=== PATIENT | female | born 1955 | race Caucasian/White ===

== ENCOUNTER 2021-12-05 11:32 | Inpatient (IN) ==
[2021-12-05] MEDS ORDERED: ONDANSETRON INJ 2 MG/ML 2 ML VIAL IV STA (12:02)
[2021-12-05] MEDS ORDERED: SODIUM CHLORIDE 0.9% 1000ML 2,000 ML IV ONE (12:02)
[2021-12-05] MEDS ORDERED: fentaNYL citrate 100 MCG/2 ML VIAL IV STA (12:02)
--- NOTE | 2021-12-05 12:06 | Emergency Department Note ---
Impression & Plan Septic shock, Acute kidney injury, Complicated UTI (urinary tract infection), Hydronephrosis with urinary obstruction due to ureteral calculus, Lactic acidosis ED Provider Note Name: NOREEN ESTRADA Age: 66 Sex: F Arrives Via: Walk-In Informant: Patient, Daughter ED Provider: Jerry Nguyen MD Chief Complaint: Left flank pain. Impression: As per impressions above Medical Decision Makin-year-old female with a history of diabetes, dyslipidemia, hypertension and previous TIA arrives for evaluation of left flank pain. Patient with known 6 mm ureteral stone on the left after CT at [facility] yesterday. Reports initially planned for transfer to [facility] but due to feeling better had been discharged. Patient with rapidly worsening left flank pain worsening nausea weakness fatigue tachycardia and chills. On arrival patient is pale diaphoretic hypotensive tachycardic and complaining of diffuse abdominal pain rating up into her substernal chest. EKG is without ischemia. Patient was immediately treated as septic shock with cultures, lactate and imaging ordered. 2 L NSS bolus started while awaiting labs. With elevated lactate empiric Cefepime given and a 3rd liter normal saline ordered. The rest of her labs are consistent with severe sepsis including an elevated white blood cell count elevated procalcitonin mildly elevated troponin amongst other abnormal lab findings. She is in acute renal failure though there is no evidence of hyperkalemia. CT reveals distal left ureteral stone with moderate hydro and stranding of the bladder and ureter. I discussed the case with critical care medicine Dr. Huerta to make him aware and at same time had urology paged. Urology to evaluate patient with plan to go emergently to the OR. Repeat lactic acid was obtained and shows vast improvement. Patient had continuous repeat evaluations throughout her stay. The hospitalist were made aware for post operative management as well. Patient did appear much improved following fluid boluses. Patient did have some low sternal epigastric chest pain on arrival. EKG does not show any ischemia. With improvement in her blood pressure her chest pain has resolved. I suspect this may have been hypotensive related. In the setting of acute septic shock secondary to an obstructing infected ureteral stone I do not feel that starting her on heparin would be necessary at this time as I suspect that troponin elevation is secondary to her acute renal failure and shock rather than ACS at this time. Sepsis Fluids: Patient received a total of 3 L normal saline bolus during the initial management in the ER. This included the 30/kg plus some based repeat evaluations. Repeat Lactate: Lactic acid elevated initially in the setting of septic shock. Repeat lactic acid is within normal range. Repeat volume status & tissue perfusion examination for sepsis at 3:15pm on 12/05/21: Status post 3 L NSS bolus. Lactate improved. Mental status improved and patient breathing comfortably. BP better at 123/50. HR 115. Clear lungs, HR a bit tachy. Cap refill within 2 seconds with good pulses. Warm pink skin without mottling nor diaphoresis. Patient does not require pressors at this time as blood pressure is improved significantly she looks much better hydrated and her volume status is improved. Prior Medical Record and Triage/Nursing Notes reviewed by Me Additional history obtained from chart, daughter and outside records Differentials:Renal colic, UTI, appendicitis, diverticulitis, mesenteric ischemia, aortic pathology, infections, inflammatory bowel disease, PUD, biliary pathology, as well as other pathologies. Vital Signs: reviewed and remarkable for hypotension, tachycardia Interventions: Normal saline bolus 3 L IV, cefepime 2 g IV, Labs:Reviewed and remarkable for elevated white blood cell count, elevated procalcitonin, elevated creatinine, elevated lactic acidosis Imaging:CT of the abdomen pelvis without contrast as per radiologist distal left ureteral 6 mm stone with hydro. 1 view chest x-ray no acute findings as per radiology KUB no acute findings questionable left renal stones as per radiology EKG:Per My Interpretation: Indication sepsis: Sinus tach 116 bpm, qtc 455. No Ectopy. No Ischemia. Compared to EKG 07/09/18 HR has increased significantly Cardiac/Tele Monitoring: Cardiac Monitoring: An Order was placed for continuous cardiac monitoring. The monitor shows a rate of 115 with a sinus tach rhythm. Consults:Dr Alexandra [facility], Dr Allan [facility], Dr Weeks Hospitalist Plan: Disposition:Hospitalization via OR Condition: Critical History of Present Illness:66-year-old female arrives for evaluation of illness. Patient with several days of left flank pain seen in [place] ER diagnosed with a left distal ureteral stone 6 mm last evening. She notes since getting home worsening nausea, vomiting, chills, increasing abdominal pain. Pain is now diffusely throughout her entire abdomen. She is also noting some low chest/epigastric discomfort. Pain is much worse with any movement. She ge ts severely lightheaded with standing better with laying flat. No medications prior to arrival. She did receive morphine last evening which she states did help with her pain. She has a history of ureteral stones requiring stents multiple years ago. Denies any falls, trauma, injuries. ROS: See above HPI for pertinent positives & negatives. A total of 10 systems reviewed and were otherwise negative. Past Medical History:Diabetes, hypertension, dyslipidemia Past Surgical History:Ureteral stones, see below Family History:See Below Social History:See Below Home Medications:See Below Allergies:sulfa, lisinopril Vitals:Blood Pressure: 87/57, Pulse 123, RR 16, T 37.1C, O2 90% on RA Physical Exam: GENERAL: Patient is unwell/ill appearing and in moderate distress. EYES: No scleral icterus, unremarkable pupils. ENT: Mucous membranes moist, no nasal congestion. NECK: No masses appreciated, nomeningismus, trachea is midline. RESPIRATORY: Moderate dyspnea. Clear to auscultation and equal bilaterally. No wheeze, no rhonchi. CARDIOVASCULAR: Tachy.No murmurs, rubs, gallops appreciated. GASTROINTESTINAL: Diffuse TTP, no guarding, + bowel sounds, no masses appreciated. BACK: No midline tenderness, no CVA tenderness EXTREMITIES: Normal motion all extremities, no cyanosis, no edema. NEUROLOGIC: Alert and oriented, no acute motor or sensory deficits, no focal weakness, cranial nerves grossly intact. SKIN: No rash, no jaundice, no diaphoresis. PSYCH: Appropriate GCS: 15 ED Course: Times/Reassessments: Many repeat evaluations of patient throughout the stay with extensive management and coordination of care. Critical Care: I have personally spent 75 minutes of critical care time in the direct management of this patient. Acute septic shock secondary to obstructing-infected left ureteral stone. This was a life/limb threatening event. This 75 minutes is in excess of all separately billable procedures. Jerry Nguyen MD Past Med/Surg History Medical History Diabetes mellitus, type 2 NIDDM Dyslipidemia GERD (gastroesophageal reflux disease) OCCASIONAL. HTN (hypertension) Hypertension Recurrent kidney stones Transient ischemic attack (TIA) ~10-15 YEARS AGO. 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 Hx of prior ablation treatment uterine ablation per pt Family History Grandmother (Paternal) Family history of diabetes mellitus Father Family history of diabetes mellitus Social History Smoking Status: Never smoker Second Hand Exposure: Yes ( A CHILD); Hx Alcohol Use: No Hx Substance Use: No Preferred Language: Zimbabwean Communication Ability: Effective Director Education Required: No Beliefs That Will Affect Care: None Current Living Situation: Significant Other Other Information That Helps Us Care for You: No Feels Safe at Home: Yes Safety Concerns: Feels Safe At This Time Assistive Devices: Glasses Allergies Allergies Allergy/AdvReac Type Severity Reaction Status Date / Time Sulfa (Sulfonamide Allergy Unknown Unknown Verified 08/25/19 17:30 Antibiotics) lisinopril AdvReac Unknown Cough Verified 08/25/19 17:30 Home Meds Home Medications Medication Instructions Recorded Confirmed aspirin 81 mg tablet,delayed 81 mg PO QAM 07/07/18 12/05/21 release ezetimibe 10 mg tablet 10 mg PO QAM 07/07/18 12/05/21 empagliflozin 25 mg tablet 25 mg PO QAM 08/25/19 12/05/21 (Jardiance) atorvastatin 10 mg tablet 10 mg PO DAILY 12/05/21 12/05/21 glimepiride 4 mg tablet 4 mg PO DAILY 12/05/21 12/05/21 hydrochlorothiazide 25 mg tablet 25 mg PO DAILY 12/05/21 12/05/21 metformin 750 mg tablet,extended 1,500 mg PO DAILY 12/05/21 12/05/21 release 24 hr polyethylene glycol 3350 17 gram 17 g PO DAILY PRN Constipation 12/05/21 12/05/21 oral powder packet (Miralax) Results & Data (ED) Vital Signs Vital Signs - 24 hr 12/05/21 11:38 12/05/21 12:56 12/05/21 12:32 Temperature 37.1 C Temperature Source Oral Pulse Rate 123 H Pulse Rate [Apical] Pulse Rate from SpO2 Sensor Pulse Rhythm [Apical] Pulse Strength [Apical] Respiratory Rate 16 Respiratory Effort / Characteristics Non-Labored Spontaneous Respiratory Depth Normal Respiratory Pattern Blood Pressure 87/57 L Blood Pressure [Left Arm] Blood Pressure Mean 67 Blood Pressure Mean [Left Arm] Blood Pressure Position Sitting Blood Pressure Position [Left Arm] Pulse Oximetry 90 96 86 L Oxygen Delivery Method Room Air Nasal Cannula Room Air Oxygen Flow Rate 2 0 Sepsis Recent Fever Within 48 Hours No Sepsis New/Unexplained Change in Mental Status N/A Sepsis Action Taken by Nursing No Action Required Oxygen Flow Rate - Titration 2 Pulse Oximetry Post Tiitration 96 12/05/21 12:33 12/05/21 12:49 12/05/21 12:49 Temperature Temperature Source Pulse Rate 116 H 114 H Pulse Rate [Apical] Pulse Rate from SpO2 Sensor 114 H Pulse Rhythm [Apical] Pulse Strength [Apical] Respiratory Rate 22 18 Respiratory Effort / Characteristics Respiratory Depth Respiratory Pattern Blood Pressure 102/63 Blood Pressure [Left Arm] Blood Pressure Mean 76 Blood Pressure Mean [Left Arm] Blood Pressure Position Blood Pressure Position [Left Arm] Pulse Oximetry 96 Oxygen Delivery Method Oxygen Flow Rate Sepsis Recent Fever Within 48 Hours Sepsis New/Unexplained Change in Mental Status Sepsis Action Taken by Nursing Oxygen Flow Rate - Titration Pulse Oximetry Post Tiitration 12/05/21 13:00 12/05/21 13:07 12/05/21 13:07 Temperature Temperature Source Pulse Rate 118 H 117 H Pulse Rate [Apical] Pulse Rate from SpO2 Sensor 118 H Pulse Rhythm [Apical] Pulse Strength [Apical] Respiratory Rate 22 22 Respiratory Effort / Characteristics Respiratory Depth Respiratory Pattern Blood Pressure 111/75 Blood Pressure [Left Arm] Blood Pressure Mean 87 Blood Pressure Mean [Left Arm] Blood Pressure Position Blood Pressure Position [Left Arm] Pulse Oximetry 95 Oxygen Delivery Method Oxygen Flow Rate Sepsis Recent Fever Within 48 Hours Sepsis New/Unexplained Change in Mental Status Sepsis Action Taken by Nursing Oxygen Flow Rate - Titration Pulse Oximetry Post Tiitration 12/05/21 13:30 12/05/21 13:30 12/05/21 14:00 Temperature Temperature Source Pulse Rate 120 H Pulse Rate [Apical] Pulse Rate from SpO2 Sensor 121 H Pulse Rhythm [Apical] Pulse Strength [Apical] Respiratory Rate 22 Respiratory Effort / Characteristics Respiratory Depth Respiratory Pattern Blood Pressure 125/80 141/77 H Blood Pressure [Left Arm] Blood Pressure Mean 95 98 Blood Pressure Mean [Left Arm] Blood Pressure Position Blood Pressure Position [Left Arm] Pulse Oximetry 93 Oxygen Delivery Method Oxygen Flow Rate Sepsis Recent Fever Within 48 Hours Sepsis New/Unexplained Change in Mental Status Sepsis Action Taken by Nursing Oxygen Flow Rate - Titration Pulse Oximetry Post Tiitration 12/05/21 14:00 12/05/21 14:02 12/05/21 14:17 Temperature Temperature Source Pulse Rate 125 H 123 H Pulse Rate [Apical] Pulse Rate from SpO2 Sensor 124 H Pulse Rhythm [Apical] Pulse Strength [Apical] Respiratory Rate 21 19 Respiratory Effort / Characteristics Respiratory Depth Respiratory Pattern Blood Pressure 105/53 L Blood Pressure [Left Arm] Blood Pressure Mean 70 Blood Pressure Mean [Left Arm] Blood Pressure Position Blood Pressure Position [Left Arm] Pulse Oximetry 94 Oxygen Delivery Method Nasal Cannula Oxygen Flow Rate 2 Sepsis Recent Fever Within 48 Hours Sepsis New/Unexplained Change in Mental Status Sepsis Action Taken by Nursing Oxygen Flow Rate - Titration Pulse Oximetry Post Tiitration 12/05/21 14:30 12/05/21 14:30 12/05/21 15:15 Temperature 37.0 C Temperature Source Oral Pulse Rate 123 H Pulse Rate [Apical] 129 H Pulse Rate from SpO2 Sensor 123 H Pulse Rhythm [Apical] Regular Pulse Strength [Apical] Normal Respiratory Rate 14 20 Respiratory Effort / Characteristics Non-Labored Spontaneous Respiratory Depth Normal Respiratory Pattern Regular Blood Pressure 106/53 L Blood Pressure [Left Arm] 115/79 Blood Pressure Mean 70 Blood Pressure Mean [Left Arm] 91 Blood Pressure Position Blood Pressure Position [Left Arm] Semi-fowlers Pulse Oximetry 91 95 Oxygen Delivery Method Room Air Oxygen Flow Rate Sepsis Recent Fever Within 48 Hours Sepsis New/Unexplained Change in Mental Status Sepsis Action Taken by Nursing Oxygen Flow Rate - Titration Pulse Oximetry Post Tiitration Laboratory Data Result diagrams: 12/05/21 12:25 12/05/21 12:25 Lab Results 12/05/21 12/05/21 12/05/21 Range/Units 11:49 12:25 12:25 WBC 21.82 H (4.8-10.8) K/ul RBC 5.05 (3.93-5.22) M/uL Hgb 14.5 (12.0-16.0) g/dl Hct 42.1 (34.1-44.9) % MCV 83.4 (80.0-100.0) fL MCH 28.7 (25.0-34.0) pg MCHC 34.4 (32.0-36.0) g/dL RDW Std Deviation 40.7 (36.4-46.3) fL RDW Coeff of Niyah 13.4 (11.5-14.5) % Plt Count 48 L (130-400) K/uL Immature Gran % (Auto) 6.4 % Neut % (Auto) 85.0 % Lymph % (Auto) 4.6 % [place] % (Auto) 3.4 % Eos % (Auto) 0.0 % Baso % (Auto) 0.6 % Neut # (Auto) 18.54 H (1.4-6.5) K/uL Lymph # (Auto) 1.00 L (1.2-3.4) K/uL [place] # (Auto) 0.75 (0.24-0.82) K/uL Eos # (Auto) 0.00 (0-0.50) K/uL Baso # (Auto) 0.13 (0-0.2) K/uL Immature Gran # (Auto) 1.40 H (0.00-0.02) K/uL Sodium 135 L (136-145) mmol/L Potassium 3.4 L (3.5-5.1) mmol/L Chloride 94 L (98-107) mmol/L Carbon Dioxide 22 (21-32) mmol/L Anion Gap 19 H (3-11) BUN 56 H (6-23) mg/dl Creatinine 4.24 H (0.6-1.2) mg/dl Est Cr Clr Drug Dosing Not Reportable Est GFR ( Amer) 12.0 ml/min Est GFR (Non-Af Amer) 10.4 ml/min BUN/Creatinine Ratio 13.2 (10-20) Glucose 258 H (70-99(Fasting)) mg/dl POC Glucose 237 H (70-99) mg/dl Lactate (0.4-2.0) mmol/L Calcium 8.4 L (8.5-10.1) mg/dl Total Bilirubin 1.7 H (0.2-1.0) mg/dl AST 146 H (13-39) U/L ALT 164 H (7-52) U/L Alkaline Phosphatase 96 (34-104) U/L Troponin I High Sens 29.1 H (0-14) pg/ml Total Protein 7.3 (6.0-8.3) gm/dl Albumin 3.5 (3.4-5.0) gm/dl Globulin 3.8 (2.5-4.0) gm/dl Albumin/Globulin Ratio 0.9 (0.9-2) Lipase 57 (11-82) U/L Procalcitonin Urine Color Urine Appearance (Clear) Urine pH (4.5-7.5) Ur Specific [place] (1.000-1.030) Urine Protein (Negative) Urine Glucose (UA) (Negative) Urine Ketones (Negative) Urine Blood (Negative) Urine Nitrite (Negative) Urine Bilirubin (Negative) Urine Urobilinogen (Negative) Ur Leukocyte Esterase (Negative) Urine WBC (Auto) (0-5) /hpf Urine RBC (Auto) (0-4) /hpf U Hyaline Cast (Auto) (0-5) /lpf U Epithel Cells (Auto) (0-5) /lpf Urine Bacteria (Auto) (Negative) Granular Casts (0) /lpf Urine Yeast SARS-CoV-2, RNA, NAAT (NEGATIVE) 12/05/21 12/05/21 12/05/21 Range/Units 12:25 12:25 12:57 WBC (4.8-10.8) K/ul RBC (3.93-5.22) M/uL Hgb (12.0-16.0) g/dl Hct (34.1-44.9) % MCV (80.0-100.0) fL MCH (25.0-34.0) pg MCHC (32.0-36.0) g/dL RDW Std Deviation (36.4-46.3) fL RDW Coeff of Niyah (11.5-14.5) % Plt Count (130-400) K/uL Immature Gran % (Auto) % Neut % (Auto) % Lymph % (Auto) % [place] % (Auto) % Eos % (Auto) % Baso % (Auto) % Neut # (Auto) (1.4-6.5) K/uL Lymph # (Auto) (1.2-3.4) K/uL [place] # (Auto) (0.24-0.82) K/uL Eos # (Auto) (0-0.50) K/uL Baso # (Auto) (0-0.2) K/uL Immature Gran # (Auto) (0.00-0.02) K/uL Sodium (136-145) mmol/L Potassium (3.5-5.1) mmol/L Chloride (98-107) mmol/L Carbon Dioxide (21-32) mmol/L Anion Gap (3-11) BUN (6-23) mg/dl Creatinine (0.6-1.2) mg/dl Est Cr Clr Drug Dosing Est GFR ( Amer) ml/min Est GFR (Non-Af Amer) ml/min BUN/Creatinine Ratio (10-20) Glucose (70-99(Fasting)) mg/dl POC Glucose (70-99) mg/dl Lactate 6.3 H* (0.4-2.0) mmol/L Calcium (8.5-10.1) mg/dl Total Bilirubin (0.2-1.0) mg/dl AST (13-39) U/L ALT (7-52) U/L Alkaline Phosphatase (34-104) U/L Troponin I High Sens (0-14) pg/ml Total Protein (6.0-8.3) gm/dl Albumin (3.4-5.0) gm/dl Globulin (2.5-4.0) gm/dl Albumin/Globulin Ratio (0.9-2) Lipase (11-82) U/L Procalcitonin Cancelled > 200.00 H Urine Color Urine Appearance (Clear) Urine pH (4.5-7.5) Ur Specific [place] (1.000-1.030) Urine Protein (Negative) Urine Glucose (UA) (Negative) Urine Ketones (Negative) Urine Blood (Negative) Urine Nitrite (Negative) Urine Bilirubin (Negative) Urine Urobilinogen (Negative) Ur Leukocyte Esterase (Negative) Urine WBC (Auto) (0-5) /hpf Urine RBC (Auto) (0-4) /hpf U Hyaline Cast (Auto) (0-5) /lpf U Epithel Cells (Auto) (0-5) /lpf Urine Bacteria (Auto) (Negative) Granular Casts (0) /lpf Urine Yeast SARS-CoV-2, RNA, NAAT (NEGATIVE) 12/05/21 12/05/21 12/05/21 Range/Units 13:53 14:30 14:50 WBC (4.8-10.8) K/ul RBC (3.93-5.22) M/uL Hgb (12.0-16.0) g/dl Hct (34.1-44.9) % MCV (80.0-100.0) fL MCH (25.0-34.0) pg MCHC (32.0-36.0) g/dL RDW Std Deviation (36.4-46.3) fL RDW Coeff of Niyah (11.5-14.5) % Plt Count (130-400) K/uL Immature Gran % (Auto) % Neut % (Auto) % Lymph % (Auto) % [place] % (Auto) % Eos % (Auto) % Baso % (Auto) % Neut # (Auto) (1.4-6.5) K/uL Lymph # (Auto) (1.2-3.4) K/uL [place] # (Auto) (0.24-0.82) K/uL Eos # (Auto) (0-0.50) K/uL Baso # (Auto) (0-0.2) K/uL Immature Gran # (Auto) (0.00-0.02) K/uL Sodium (136-145) mmol/L Potassium (3.5-5.1) mmol/L Chloride (98-107) mmol/L Carbon Dioxide (21-32) mmol/L Anion Gap (3-11) BUN (6-23) mg/dl Creatinine (0.6-1.2) mg/dl Est Cr Clr Drug Dosing Est GFR ( Amer) ml/min Est GFR (Non-Af Amer) ml/min BUN/Creatinine Ratio (10-20) Glucose (70-99(Fasting)) mg/dl POC Glucose (70-99) mg/dl Lactate 1.7 (0.4-2.0) mmol/L Calcium (8.5-10.1) mg/dl Total Bilirubin (0.2-1.0) mg/dl AST (13-39) U/L ALT (7-52) U/L Alkaline Phosphatase (34-104) U/L Troponin I High Sens (0-14) pg/ml Total Protein (6.0-8.3) gm/dl Albumin (3.4-5.0) gm/dl Globulin (2.5-4.0) gm/dl Albumin/Globulin Ratio (0.9-2) Lipase (11-82) U/L Procalcitonin Urine Color Dark Yellow Urine Appearance Turbid A (Clear) Urine pH 5.0 (4.5-7.5) Ur Specific [place] 1.020 (1.000-1.030) Urine Protein 3+ H (Negative) Urine Glucose (UA) 3+ H (Negative) Urine Ketones Trace H (Negative) Urine Blood 3+ H (Negative) Urine Nitrite Positive A (Negative) Urine Bilirubin 1+ H (Negative) Urine Urobilinogen Negative (Negative) Ur Leukocyte Esterase 3+ H (Negative) Urine WBC (Auto) >30 H (0-5) /hpf Urine RBC (Auto) 10-30 H (0-4) /hpf U Hyaline Cast (Auto) 5-10 H (0-5) /lpf U Epithel Cells (Auto) >30 H (0-5) /lpf Urine Bacteria (Auto) 4+ H (Negative) Granular Casts 1-5 H (0) /lpf Urine Yeast Not Reportable SARS-CoV-2, RNA, NAAT NEGATIVE (NEGATIVE) Administered Medications Discontinued Medications Diatrizoate Meglumine (Diatrizoate Meglumine 30% 100ml Vial) 0 ml INSTIL ONCE O NE Stop: 12/05/21 16:21 Last Admin: 12/05/21 16:22 Dose: 6 ml Documented By: QUINN Fentanyl Citrate (Fentanyl Citrate 100 Mcg/2 Ml Vial) 50 mcg IV NOW STA Stop: 12/05/21 12:03 Last Admin: 12/05/21 12:41 Dose: 50 mcg Documented By: AM Sodium Chloride (Nss 1000ml) 2,000 mls @ 999 mls/hr IV .Q2H1M ONE Stop: 12/05/21 14:02 Last Infusion: 12/05/21 14:20 Dose: 0 mls/hr Documented By: Admin: 12/05/21 12:53 Dose: 999 mls/hr Documented By: AM Sodium Chloride (Nss 1000ml) 1,000 mls @ 999 mls/hr IV .Q1H1M ONE Stop: 12/05/21 14:18 Last Infusion: 12/05/21 17:43 Dose: 0 mls/hr Documented By: Admin: 12/05/21 14:19 Dose: 999 mls/hr Documented By: EDANGELO Cefepime HCl (Maxipime) 2,000 mg in 20 mls @ 5 mls/min IV NOW STA; Protocol Stop: 12/05/21 13:21 Last Admin: 12/05/21 13:52 Dose: 5 mls/min Documented By: AM Ondansetron HCl (Ondansetron Inj 2 Mg/Ml 2 Ml Vial) 4 mg IV NOW STA Stop: 12/05/21 12:03 Last Admin: 12/05/21 12:31 Dose: 4 mg Documented By: AM Imaging Data Radiologist's Impression: Retrograde Pyelogram 12/05/21 00:00 FL retrograde includes kub CLINICAL HISTORY: LEFT SIDE STENT PLACEMENT TECHNIQUE: 2 views were obtained with the C-arm in the OR with the above procedure. Total fluoroscopy time was 13.2 seconds. Total skin dose was 3.09 mGy. Comparison: None available at the time of this dictation. FINDINGS/IMPRESSION: Intraoperative images were obtained of retrograde pyelo gram. Please correlate with intraoperative fluoroscopy and operative report. ACT 112: Negative or not required by law. Electronically signed by: Cb Hunter M.D. 12/05/2021 4:35 PM Chest X-Ray 12/05/21 11:44 XR chest 1V portable CLINICAL HISTORY: Atypical chest pain. COMPARISON STUDY: No previous studies for comparison. FINDINGS: Lung volumes are diminished. There is no pneumothorax or pleural effusion. Linear bibasilar opacities favor atelectasis. Mild enlargement of the cardiac silhouette is noted. There is no evidence for overt pulmonary edema. IMPRESSION: Low lung volumes with bibasilar opacities that favor atelectasis. ACT 112: Negative or not required by law. Electronically signed by: Kofi Reeves M.D. 12/05/2021 12:52 PM KUB X-Ray 12/05/21 12:02 KUB CLINICAL HISTORY: Left ureteral stone. FINDINGS: 2 AP supine abdominal radiographs are correlated with abdominal CT dated 07/07/2018 and lumbar spine radiographs dated 08/25/2019. There is a nonobstructive abdominal bowel gas pattern. Moderate fecal retention is seen throughout the colon and largely obscures the renal shadows. A punctate renaldo cification is suspected projecting of the left kidney. No calcifications are clearly seen projecting over the right kidney or along the course of the ureters. There are numerous indeterminate calcifications in the pelvis. The majority likely represent phleboliths. Bladder calculi are not excluded. P eripherally calcified splenic artery aneurysms project over the left upper quadrant and measure up to 11 mm. The skeletal structures are osteopenic and appear intact. There is mild lumbosacral spondylosis. IMPRESSION: 1. Moderate constipation largely obscures the renal shadows. 2. Suspect a punctate nonobstructing left renal calculus. 3. No calcifications are clearly seen projecting over the right kidney or along the course of the ureters. 4. There are numerous indeterminant calcifications in the pelvis. The majority likely represent phleboliths. Bladder calculi are not excluded. Electronically signed by: Dmitriy Jeter M.D. 12/05/2021 12:48 PM Abdomen/Pelvis CT 12/05/21 13:39 CT SCAN OF THE ABDOMEN AND PELVIS WITHOUT IV CONTRAST CLINICAL HISTORY: Renal failure. Sepsis COMPARISON STUDY: Abdominal CT dated 07/07/2018. TECHNIQUE: CT scan of the abdomen and pelvis is performed from the lung bases to the proximal femora. Images are reviewed in the axial, sagittal, and coronal planes. IV contrast was not administered for this examination due to poor renal function. Note that the examination is suboptimal without oral and IV contrast. A dose lowering technique was utilized adhering to the principles of ALARA. CT DOSE: 640.67 mGycm FINDINGS: Lung bases: The heart is normal in size and without pericardial effusion. The coronary arteries are densely calcified. There are trace pleural effusions with dependent consolidation. A small hiatal hernia is noted. Liver: The unenhanced liver is normal in size, contour, and attenuation. There is no intrahepatic biliary ductal dilatation. Gallbladder: Unremarkable. Spleen: Normal in size and attenuation. There are at least 3 peripherally calcified splenic artery aneurysms measuring up to 13 mm. Pancreas: The unenhanced pancreas is grossly unremarkable. Adrenal glands: Unremarkable. Kidneys: The unenhanced kidneys are normal in size PA there is a 6 mm obstructing calculus at the left vesicoureteral junction seen on image #425. This causes mild to moderate left hydroureteronephrosis. There is associated left-sided perinephric stranding and fluid. Urothelial thickening is noted in the left ureter. There are least 2 additional punctate nonobstructing left renal calculi. There is a 3 mm nonobstructing calculus seen in the right lower pole. No right ureteral calculus is identified and there is no right-sided hydronephrosis. There is no evidence of contour deforming renal mass lesion. Abdominal vasculature: The abdominal aorta is normal in course and caliber noting mild to moderate atherosclerotic calcification. Bowel: There is moderate colonic fecal retention. No bowel obstruction is seen. The appendix is well-visualized and normal. Peritoneum: There is no intraperitoneal free air or abdominal ascites. Lymphadenopathy: None. Pelvic viscera: The bladder is normal as visualized. The uterus is heterogeneous and contains calcified fibroids. No adnexal lesion is seen. Skeletal structures: The skeletal structures are osteopenic. There is mild lumbosacral spondylosis. No lytic or blastic lesions are seen. IMPRESSION: 1. There is a 6 mm obstructing calculus at the left vesicoureteral junction. This causes mild to moderate left hydroureteronephrosis. 2. Additional small nonobstructing calculi are seen in both kidneys. 3. Moderate constipation. 4. Trace pleural effusions with dependent bibasilar consolidation. This could represent atelectasis and/or pneumonia and clinical correlation will be required. 5. Fibroid uterus. 6. Additional findings as above. ACT 112: Negative or not required by law. Electronically signed by: Dmitriy Jeter M.D. 12/05/2021 2:24 PM Discharge Plan Visit Data Chief Complaint: Chest Pain Stated Complaint: VOMITING, CHEST PAIN, SOB, @ [facility] 12/04 ED Provider: Jerry Nguyen Discharge Problem: Septic shock, Acute kidney injury, Complicated UTI (urinary tract infection), Hydronephrosis with urinary obstruction due to ureteral calculus, Lactic acidosis Patient Disposition: Admitted As Inpatient Discharge Instructions Interventions: ED Discharge Assessment Last Done: 12/05/21 15:08
--- NOTE | 2021-12-05 12:50 | XRay Report ---
KUB CLINICAL HISTORY: Left ureteral stone. FINDINGS: 2 AP supine abdominal radiographs are correlated with abdominal CT dated 07/07/2018 and lumb ar spine radiographs dated 08/25/2019. There is a nonobstructive abdominal bowel gas pattern. Moderate fecal retention is seen throughout the colon and largely obscures the renal shadows. A punctate calc ification is suspected projecting of the left kidney. No calcifications are clearly seen projecting o betsey the right kidney or along the course of the ureters. There are numerous indeterminate calcificati ons in the pelvis. The majority likely represent phleboliths. Bladder calculi are not excluded. Perip herally calcified splenic artery aneurysms project over the left upper quadrant and measure up to 11 mm. The skeletal structures are osteopenic and appear intact. There is mild lumbosacral spondylosis. IMPRESSION: 1. Moderate constipation largely obscures the renal shadows. 2. Suspect a punctate nonobstructing left renal calculus. 3. No calcifications are clearly seen projecting over the right kidney or along the course of the ure ters. 4. There are numerous indeterminant calcifications in the pelvis. The majority likely represent phleb oliths. Bladder calculi are not excluded. Electronically signed by: Dmitriy Jeter M.D. 12/05/2021 12:48 PM
--- NOTE | 2021-12-05 12:53 | XRay Report ---
XR chest 1V portable CLINICAL HISTORY: Atypical chest pain. COMPARISON STUDY: No previous studies for comparison. FINDINGS: Lung volumes are diminished. There is no pneumothorax or pleural effusion. Linear bibasilar opacities favor atelectasis. Mild enlargement of the cardiac silhouette is noted. There is no eviden ce for overt pulmonary edema. IMPRESSION: Low lung volumes with bibasilar opacities that favor atelectasis. ACT 112: Negative or not required by law. Electronically signed by: Kofi Reeves M.D. 12/05/2021 12:52 PM
[2021-12-05] MEDS ORDERED: CEFEPIME 2,000 MG/20 ML VIAL IV STA (13:18)
[2021-12-05] MEDS ORDERED: SODIUM CHLORIDE 0.9% 1000ML 1,000 ML IV ONE (13:18)
[2021-12-05 13:22] LABS: Troponin I High Sensitivity 29.1 pg/ml (0-14)
[2021-12-05 13:29] LABS: Hematocrit (blood only) 42.1 % (34.1-44.9); Hemoglobin 14.5 g/dl (12.0-16.0); Mean Corpuscular Hemoglobin 28.7 pg (25.0-34.0); Mean Corpuscular Hgb Conc 34.4 g/dL (32.0-36.0); Mean Corpuscular Volume 83.4 fL (80.0-100.0); Platelet Count 48 K/uL (130-400); RDW Coefficient of Variation 13.4 % (11.5-14.5); RDW Standard Deviation 40.7 fL (36.4-46.3); Red Blood Count 5.05 M/uL (3.93-5.22); White Blood Count 21.82 K/ul (4.8-10.8)
[2021-12-05 13:36] LABS: Alanine Aminotransferase 164 U/L (7-52); Albumin Globulin Ratio 0.9 (0.9-2); Albumin Level 3.5 gm/dl (3.4-5.0); Alkaline Phosphatase 96 U/L (34-104); Anion Gap 19 (3-11); BUN Creatinine Ratio 13.2 (10-20); Bilirubin,Total 1.7 mg/dl (0.2-1.0); Blood Urea Nitrogen 56 mg/dl (6-23); Calcium 8.4 mg/dl (8.5-10.1); Carbon Dioxide 22 mmol/L (21-32); Chloride 94 mmol/L (98-107); Est GFR (Non-African American) 10.4 ml/min; Globulin 3.8 gm/dl (2.5-4.0); Glucose 258 mg/dl (70-99(Fasting)); Lipase 57 U/L (11-82); Sodium 135 mmol/L (136-145); Total Protein 7.3 gm/dl (6.0-8.3)
[2021-12-05 13:43] LABS: Basophils # (auto) 0.13 K/uL (0-0.2); Basophils % (auto) 0.6 %; Immature Granulocytes % (auto) 6.4 %; Lymphocytes % (auto) 4.6 %; Monocytes # (auto) 0.75 K/uL (0.24-0.82); Monocytes % (auto) 3.4 %; Neutrophils # (auto) 18.54 K/uL (1.4-6.5)
[2021-12-05 14:04] LABS: Aspartate Aminotransferase 146 U/L (13-39); Potassium 3.4 mmol/L (3.5-5.1)
--- NOTE | 2021-12-05 14:25 | CT Scan Report ---
CT SCAN OF THE ABDOMEN AND PELVIS WITHOUT IV CONTRAST CLINICAL HISTORY: Renal failure. Sepsis COMPARISON STUDY: Abdominal CT dated 07/07/2018. TECHNIQUE: CT scan of the abdomen and pelvis is performed from the lung bases to the proximal femora. Images are reviewed in the axial, sagittal, and coronal planes. IV contrast was not administered for this examination due to poor renal function. Note that the examination is suboptimal without oral an d IV contrast. A dose lowering technique was utilized adhering to the principles of ALARA. CT DOSE: 640.67 mGycm FINDINGS: Lung bases: The heart is normal in size and without pericardial effusion. The coronary arteries are d ensely calcified. There are trace pleural effusions with dependent consolidation. A small hiatal dung ia is noted. Liver: The unenhanced liver is normal in size, contour, and attenuation. There is no intrahepatic donell iary ductal dilatation. Gallbladder: Unremarkable. Spleen: Normal in size and attenuation. There are at least 3 peripherally calcified splenic artery an eurysms measuring up to 13 mm. Pancreas: The unenhanced pancreas is grossly unremarkable. Adrenal glands: Unremarkable. Kidneys: The unenhanced kidneys are normal in size PA there is a 6 mm obstructing calculus at the lef t vesicoureteral junction seen on image #425. This causes mild to moderate left hydroureteronephrosis . There is associated left-sided perinephric stranding and fluid. Urothelial thickening is noted in t he left ureter. There are least 2 additional punctate nonobstructing left renal calculi. There is a 3 mm nonobstructing calculus seen in the right lower pole. No right ureteral calculus is identified an d there is no right-sided hydronephrosis. There is no evidence of contour deforming renal mass lesion . Abdominal vasculature: The abdominal aorta is normal in course and caliber noting mild to moderate at herosclerotic calcification. Bowel: There is moderate colonic fecal retention. No bowel obstruction is seen. The appendix is well -visualized and normal. Peritoneum: There is no intraperitoneal free air or abdominal ascites. Lymphadenopathy: None. Pelvic viscera: The bladder is normal as visualized. The uterus is heterogeneous and contains calcifi ed fibroids. No adnexal lesion is seen. Skeletal structures: The skeletal structures are osteopenic. There is mild lumbosacral spondylosis. N o lytic or blastic lesions are seen. IMPRESSION: 1. There is a 6 mm obstructing calculus at the left vesicoureteral junction. This causes mild to mode rate left hydroureteronephrosis. 2. Additional small nonobstructing calculi are seen in both kidneys. 3. Moderate constipation. 4. Trace pleural effusions with dependent bibasilar consolidation. This could represent atelectasis a nd/or pneumonia and clinical correlation will be required. 5. Fibroid uterus. 6. Additional findings as above. ACT 112: Negative or not required by law. Electronically signed by: Dmitriy Jeter M.D. 12/05/2021 2:24 PM
--- NOTE | 2021-12-05 14:59 | Urology Consultation ---
Date of Consultation December 05, 2021 Assessment & Plan (1) Left ureteral stone: (2) Acute kidney injury: (3) Sepsis: - Patient acutely ill with known left ureteral stone. - She is tachycardic, hypotensive, OTILIA, leukocytosis, and suspected UTI in the setting of a left ureteral stone. - CT imaging reviewed and notes an obstructing left UVJ stone. - UA pending, blood cultures pending. - Treated with IV Cefepime in ED. - Decision made to go to OR emergently for left ureteral stent placement. - Case discussed with Dr. Allan, urologist wagon person. Supervising Physician Co-Signing Physician Notes acutely ill patient obstructing distal left ureteral stone high lactate plan for immediate intervention as a cysto, left ureteral stent placement expect that we will see a slow resolution of OTILIA as her current Cr is considerably higher than we would expect from a unilateral obstruction - supsect some hypo-perfusion related injury? History of Present Illness Reason for Consultation: Left ureteral stone, sepsis Attending Physician: Dr. Nguyen History of Present Illness 66 year old female with PMHx of kidney stones, HTN, HLD, type 2 diabetes presented to the emergency department today with left flank and abdominal pain and ill feelings. Patient with several days of left flank pain seen in [place] [facility] and diagnosed with a 6 mm left distal ureteral stone last evening.She notes worsening nausea, vomiting, chills, and increasing abdominal pain since returning home. On arrival, she was afebrile, but tachycardic and hypotensive. Lab work reviewed and creatinine 4.24, WBC 21.82, lactate 6.3. CTAP shows an obstructing 6 mm left UVJ stone with hydronephrosis. UA pending, blood cultures pending. She was treated with IV Cefepime and IV fluids. Patient examined in ER, she is resting in litter. She is ill-appearing, no acute distress. She reports left flank pain started 2 days ago, now pain is located in left abdomen. She has chills, nausea and vomiting. Calvo intact and draining concentrated urine. Denies dysuria or hematuria. Last ate/drank yesterday. She has hx of prior stones requiring surgical intervention. Allergies Allergy/AdvReac Type Severity Reaction Status Date / Time Sulfa (Sulfonamide Allergy Unknown Unknown Verified 08/25/19 17:30 Antibiotics) lisinopril AdvReac Unknown Cough Verified 08/25/19 17:30 Home Medications Medication Instructions Recorded Confirmed Type aspirin 81 mg tablet,delayed 81 mg PO QAM 07/07/18 08/25/19 History release atorvastatin 20 mg tablet 20 mg PO QAM 07/07/18 08/25/19 History ezetimibe 10 mg tablet 10 mg PO QAM 07/07/18 08/25/19 History hydrochlorothiazide 12.5 mg capsule 12.5 mg PO QAM 07/07/18 08/25/19 History metformin 1,000 mg tablet 1,000 mg PO BIDM 07/07/18 08/25/19 History empagliflozin 25 mg tablet 25 mg PO QAM 08/25/19 08/25/19 History (Jardiance) Patient History Medical History Diabetes mellitus, type 2 NIDDM GERD (gastroesophageal reflux disease) OCCASIONAL. Hyperlipidemia Hypertension Kidney stone on right side Transient ischemic attack (TIA) ~10-15 YEARS AGO. 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 Hx of prior ablation treatment uterine ablation per pt Family History Grandmother (Paternal) Family history of diabetes mellitus Father Family history of diabetes mellitus Social History Smoking Status: Never smoker Second Hand Exposure: Yes ( A CHILD); Hx Alcohol Use: Yes Hx Substance Use: No Preferred Language: Greek Communication Ability: Effective Aging Room Operator Required: No Beliefs That Will Affect Care: None Current Living Situation: Spouse Feels Safe at Home: Yes Assistive Devices: Glasses Review of Systems Review of Systems: All systems reviewed & are unremarkable except as noted in HPI & below Physical Exam Constitutional: + ill appearing; no acute distress Eyes: no scleral abnormality Respiratory: normal respiratory effort; no respiratory distress and no labored breathing Gastrointestinal (Abdomen): Inspection/Auscultation: abdomen normal to inspection; abdomen not distended Musculoskeletal: Head/Neck/Chest: normocephalic and head atraumatic Skin: no rashes, warm and dry Neurologic: moves all extremities and awake Psychiatric: Orientation: alert and oriented x 3 Genitourinary: Calvo intact and draining concentrated urine Results & Data ([facility]) Vital Signs (Past 12 Hours) Vital Signs Temp Pulse Resp BP Pulse Ox O2 Del Method O2 Flow Rate 12/05/21 14:30 123 H 14 91 12/05/21 14:30 106/53 L 12/05/21 14:17 105/53 L 12/05/21 14:02 123 H 19 94 Nasal Cannula 2 12/05/21 14:00 125 H 21 12/05/21 14:00 141/77 H 12/05/21 13:30 120 H 22 93 12/05/21 13:30 125/80 12/05/21 13:07 111/75 12/05/21 13:07 117 H 22 12/05/21 13:00 118 H 22 95 12/05/21 12:49 102/63 12/05/21 12:49 114 H 18 96 12/05/21 12:33 116 H 22 12/05/21 12:32 86 L Room Air 0 12/05/21 12:56 96 Nasal Cannula 2 12/05/21 11:38 37.1 C 123 H 16 87/57 L 90 Room Air PG Care Time/CCT Total # of Minutes Spent Total Time Spent with Patient: Total time spent is greater than 50% in coordination of care (as documented) at patient's floor/unit and/or counseling patient: Coding Level of Care Code 06910 Inpt Consult Level 4 Diagnoses Left ureteral stone N20.1 Acute kidney injury N17.9 Sepsis A41.9
[2021-12-05 15:08] LABS: Appearance Urine Turbid (Clear); Bacteria Urine Automated 4+ (Negative); Blood Urine 3+ (Negative); Color Urine Dark Yellow; Epithelial Cell Urine Auto >30 /lpf (0-5); Glucose Urine UA 3+ (Negative); Ketones Urine Trace (Negative); Leukocyte Esterase Urine 3+ (Negative); Nitrite Urine Positive (Negative); Protein Urine 3+ (Negative); Urobilinogen Urine Negative (Negative); WBC Urine Automated >30 /hpf (0-5)
[2021-12-05] MEDS ORDERED: LIDOCAINE 2% MPF LOCAL 5 ML VIAL INFIL ONE (15:36)
[2021-12-05] MEDS ORDERED: ePHEDrine sulfate 50 MG/ML SYR ONE (15:36)
[2021-12-05] MEDS ORDERED: PHENYLEPHRINE 100MCG/ML 5ML SYR ONE (15:36)
[2021-12-05] MEDS ORDERED: PROPOFOL IV EMULSION 10 MG/ML 20 ML VIAL IV ONE (15:36)
[2021-12-05] MEDS ORDERED: fentaNYL citrate 100 MCG/2 ML VIAL ONE (15:37)
[2021-12-05] MEDS ORDERED: MIDAZOLAM HCL 1 MG/ML 2ML VIAL ONE (15:37)
--- NOTE | 2021-12-05 15:37 | History & Physical Report ---
Date of Service December 05, 2021 Assessment & Plan (1) Septic shock: (2) Hydronephrosis with urinary obstruction due to ureteral calculus: (3) Recurrent kidney stones: (4) Complicated UTI (urinary tract infection): (5) Acute kidney injury: (6) Diabetes mellitus, type 2: (7) HTN (hypertension): (8) Transient ischemic attack (TIA): (9) Dyslipidemia: Plan This is a 66yo F with a PMH of DM II, HTN, dyslipidemia, history of kidney stones and other medical problems listed below who presents with flank pain, nausea and vomiting over the past 2 days and was found to have septic shock and acute renal failure in setting of obstructing ureteral stone. Septic shock Obstructing ureteral stone Complicated UTI Recurrent kidney stones Initially hypotensive 87/57 but volume resuscitated with 2.5 L NSS per sepsis protocol - BP now improved to 115/79 HR in 120s WBC 21.8K, lactate initially 6 -> improved to 1.7 with IV fluids, procal >200 CT abd/pelvis with 6 mm obstructing calculus at the left vesicoureteral junction. This causes mild to moderate left hydroureteronephrosis UA abnormal, urine and blood cultures pending Started on empiric abx with IV Cefepime ED provider discussed with Dr. Huerta, who will manage patient in ICU following OR for emergent left ureteral stent placement by Dr. Watson Acute renal failure Cr 4.24, Cr 0.8 at baseline. In setting of obstructing stone, also likely pre- renal component given N/V and poor PO intake Hold HCTZ Type 2 diabetes A1c 7.2 in August 2021 Hold home agents SSI while in-patient BSG AC HS Hypertension Holding hctz 2/2 ARF History of TIA Remote h/o TIA 10-15 years ago. On aspirin and statin Dyslipidemia Continue statin DVT Ppx: SCDs for now given OR for procedure Code status: FULL PCP: Melo Dispo: Admitted to ICU Patient seen in collaboration with Dr. Weeks. Please see addendum. History of Present Illness Chief Complaint: flank pain, N/V Primary Care Provider: Kelly Alejo MD This is a 66yo F with a PMH of DM II, HTN, dyslipidemia, history of kidney stones and other medical problems listed below who presents with flank pain, nausea and vomiting over the past 2 days. Initially had left flank pain and decreased appetite but then developed nausea and vomiting. Denies fever and chills at home. Daughter took patient to [place] ER last evening and was discharged on hydrocodone, Toradol, Zofran and Flomax and instructed to follow- up with urologist Dr. Lopez. Continued to feel worse overnight, developing central chest pain, continued nausea and vomiting. Daughter brought her to [facility] ED for further evaluation. Patient was examined in ASU in after receiving IV fluid resuscitation, antibiotic and pain control in ED. Is much more comfortable after fentanyl. Denies any residual flank pain. Feels dehydrated and nauseous. No chills, headache, CP, SOB, abdominal pain, diarrhea or constipation. No recent medications changes. Patient has history of ureteral stones requiring multiple stents years ago. Allergies Allergy/AdvReac Type Severity Reaction Status Date / Time Sulfa (Sulfonamide Allergy Unknown Unknown Verified 08/25/19 17:30 Antibiotics) lisinopril AdvReac Unknown Cough Verified 08/25/19 17:30 Home Medications Medication Instructions Recorded Confirmed Type aspirin 81 mg tablet,delayed 81 mg PO QAM 07/07/18 12/05/21 History release ezetimibe 10 mg tablet 10 mg PO QAM 07/07/18 12/05/21 History empagliflozin 25 mg tablet 25 mg PO QAM 08/25/19 12/05/21 History (Jardiance) atorvastatin 10 mg tablet 10 mg PO DAILY 12/05/21 12/05/21 History glimepiride 4 mg tablet 4 mg PO DAILY 12/05/21 12/05/21 History hydrochlorothiazide 25 mg tablet 25 mg PO DAILY 12/05/21 12/05/21 History metformin 750 mg tablet,extended 1,500 mg PO DAILY 12/05/21 12/05/21 History release 24 hr polyethylene glycol 3350 17 gram 17 g PO DAILY PRN Constipation 12/05/21 12/05/21 History oral powder packet (Miralax) Past Med/Surg History Medical History Diabetes mellitus, type 2 NIDDM Dyslipidemia GERD (gastroesophageal reflux disease) OCCASIONAL. HTN (hypertension) Hypertension Recurrent kidney stones Transient ischemic attack (TIA) ~10-15 YEARS AGO. 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 Hx of prior ablation treatment uterine ablation per pt Family History Grandmother (Paternal) Family history of diabetes mellitus Father Family history of diabetes mellitus Social History Smoking Status: Never smoker Second Hand Exposure: Yes ( A CHILD); Hx Alcohol Use: Yes Hx Substance Use: No Preferred Language: Bulgarian Communication Ability: Effective Manager Center Required: No Beliefs That Will Affect Care: None Current Living Situation: Spouse Feels Safe at Home: Yes Assistive Devices: Glasses Review of Systems Review of Systems: At least ten systems reviewed and negative except as noted in the HPI. Physical Exam Physical Exam: Please see Dr. Weeks's addendum for physical exam. Results & Data Results & Data ([facility]) Vital Signs (Past 12 Hours) Vital Signs Temp Pulse Pulse Resp BP BP Pulse Ox 12/05/21 15:15 37.0 C 129 H 20 115/79 95 12/05/21 14:30 123 H 14 91 12/05/21 14:30 106/53 L 12/05/21 14:17 105/53 L 12/05/21 14:02 123 H 19 94 12/05/21 14:00 125 H 21 12/05/21 14:00 141/77 H 12/05/21 13:30 120 H 22 93 12/05/21 13:30 125/80 12/05/21 13:07 111/75 12/05/21 13:07 117 H 22 12/05/21 13:00 118 H 22 95 12/05/21 12:49 102/63 12/05/21 12:49 114 H 18 96 12/05/21 12:33 116 H 22 12/05/21 12:32 86 L 12/05/21 12:56 96 12/05/21 11:38 37.1 C 123 H 16 87/57 L 90 O2 Del Method O2 Flow Rate 12/05/21 15:15 Room Air 12/05/21 14:30 12/05/21 14:30 12/05/21 14:17 12/05/21 14:02 Nasal Cannula 2 12/05/21 14:00 12/05/21 14:00 12/05/21 13:30 12/05/21 13:30 12/05/21 13:07 12/05/21 13:07 12/05/21 13:00 12/05/21 12:49 12/05/21 12:49 12/05/21 12:33 12/05/21 12:32 Room Air 0 12/05/21 12:56 Nasal Cannula 2 12/05/21 11:38 Room Air Laboratory Results Short CBC 12/05/21 Range/Units 12:25 WBC 21.82 H (4.8-10.8) K/ul Hgb 14.5 (12.0-16.0) g/dl Hct 42.1 (34.1-44.9) % Plt Count 48 L (130-400) K/uL BMP 12/05/21 12:25 Sodium 135 L Potassium 3.4 L Chloride 94 L Carbon Dioxide 22 BUN 56 H Creatinine 4.24 H Glucose 258 H Calcium 8.4 L Liver Function 12/05/21 Range/Units 12:25 Total Bilirubin 1.7 H (0.2-1.0) mg/dl AST 146 H (13-39) U/L ALT 164 H (7-52) U/L Alkaline Phosphatase 96 (34-104) U/L Albumin 3.5 (3.4-5.0) gm/dl Urine 12/05/21 Range/Units 14:50 Urine Color Dark Yellow Urine Appearance Turbid A (Clear) Urine pH 5.0 (4.5-7.5) Ur Specific [place] 1.020 (1.000-1.030) Urine Protein 3+ H (Negative) Urine Glucose (UA) 3+ H (Negative) Diagnostic Findings Chest X-Ray 12/05/21 11:44 XR chest 1V portable CLINICAL HISTORY: Atypical chest pain. COMPARISON STUDY: No previous studies for comparison. FINDINGS: Lung volumes are diminished. There is no pneumothorax or pleural effusion. Linear bibasilar opacities favor atelectasis. Mild enlargement of the cardiac silhouette is noted. There is no evidence for overt pulmonary edema. IMPRESSION: Low lung volumes with bibasilar opacities that favor atelectasis. ACT 112: Negative or not required by law. Electronically signed by: Kofi Reeves M.D. 12/05/2021 12:52 PM KUB X-Ray 12/05/21 12:02 KUB CLINICAL HISTORY: Left ureteral stone. FINDINGS: 2 AP supine abdominal radiographs are correlated with abdominal CT dated 07/07/2018 and lumbar spine radiographs dated 08/25/2019. There is a nonobstructive abdominal bowel gas pattern. Moderate fecal retention is seen throughout the colon and largely obscures the renal shadows. A punctate calcification is suspected projecting of the left kidney. No calcifications are clearly seen projecting over the right kidney or along the course of the ureters. There are numerous indeterminate calcifications in the pelvis. The majority likely represent phleboliths. Bladder calculi are not excluded. Per ipherally calcified splenic artery aneurysms project over the left upper quadrant and measure up to 11 mm. The skeletal structures are osteopenic and appear intact. There is mild lumbosacral spondylosis. IMPRESSION: 1. Moderate constipation largely obscures the renal shadows. 2. Suspect a punctate nonobstructing left renal calculus. 3. No calcifications are clearly seen projecting over the right kidney or along the course of the ureters. 4. There are numerous indeterminant calcifications in the pelvis. The majority likely represent phleboliths. Bladder calculi are not excluded. Electronically signed by: Dmitriy Jeter M.D. 12/05/2021 12:48 PM Abdomen/Pelvis CT 12/05/21 13:39 CT SCAN OF THE ABDOMEN AND PELVIS WITHOUT IV CONTRAST CLINICAL HISTORY: Renal failure. Sepsis COMPARISON STUDY: Abdominal CT dated 07/07/2018. TECHNIQUE: CT scan of the abdomen and pelvis is performed from the lung bases to the proximal femora. Images are reviewed in the axial, sagittal, and coronal planes. IV contrast was not administered for this examination due to poor renal function. Note that the examination is suboptimal without oral and IV contrast. A dose lowering technique was utilized adhering to the principles of ALARA. CT DOSE: 640.67 mGycm FINDINGS: Lung bases: The heart is normal in size and without pericardial effusion. The coronary arteries are densely calcified. There are trace pleural effusions with dependent consolidation. A small hiatal hernia is noted. Liver: The unenhanced liver is normal in size, contour, and attenuation. There is no intrahepatic biliary ductal dilatation. Gallbladder: Unremarkable. Spleen: Normal in size and attenuation. There are at least 3 peripherally calcified splenic artery aneurysms measuring up to 13 mm. Pancreas: The unenhanced pancreas is grossly unremarkable. Adrenal glands: Unremarkable. Kidneys: The unenhanced kidneys are normal in size PA there is a 6 mm obstructing calculus at the left vesicoureteral junction seen on image #[id number]. This causes mild to moderate left hydroureteronephrosis. There is associated left-sided perinephric stranding and fluid. Urothelial thickening is noted in the left ureter. There are least 2 additional punctate nonobstructing left renal calculi. There is a 3 mm nonobstructing calculus seen in the right lower pole. No right ureteral calculus is identified and there is no right-sided hydronephrosis. There is no evidence of contour deforming renal mass lesion. Abdominal vasculature: The abdominal aorta is normal in course and caliber not ing mild to moderate atherosclerotic calcification. Bowel: There is moderate colonic fecal retention. No bowel obstruction is seen. The appendix is well-visualized and normal. Peritoneum: There is no intraperitoneal free air or abdominal ascites. Lymphadenopathy: None. Pelvic viscera: The bladder is normal as visualized. The uterus is heterogeneous and contains calcified fibroids. No adnexal lesion is seen. Skeletal structures: The skeletal structures are osteopenic. There is mild lumbosacral spondylosis. No lytic or blastic lesions are seen. IMPRESSION: 1. There is a 6 mm obstructing calculus at the left vesicoureteral junction. This causes mild to moderate left hydroureteronephrosis. 2. Additional small nonobstructing calculi are seen in both kidneys. 3. Moderate constipation. 4. Trace pleural effusions with dependent bibasilar consolidation. This could represent atelectasis and/or pneumonia and clinical correlation will be required. 5. Fibroid uterus. 6. Additional findings as above. ACT 112: Negative or not required by law. Electronically signed by: Dmitriy Jeter M.D. 12/05/2021 2:24 PM Code Status & VTE Plan VTE Prophylaxis Plan VTE Prophylaxis will be ordered: Yes Supervising Physician Co-Signing Physician Notes Pt was seen and examined. Agreed with Lizbeth CARLISLE assessment and plan. 66yo F with a PMH of DM II, HTN, dyslipidemia, history of kidney stones presented to the ER with flank pain for about 2 days. As per daughter pt was seen last night at [place] ER for L flank pain associated with nausea and vomiting. She was found to have a 6mm left distal ureteral stone. She was discharge with pain med and flomax. Her pain worsening this morning and daughter brought her to [facility]. She was found to be septic with creatinine 4.2, WBC 21.8, elevated anion gap at 19, procalcitonin above 200, lactic acid 6.3, AST 146 and ALT 164. General +weak, sleeping, ill Head- atraumatic Eyes- PERRL, EOMI, ENT +dry mucosa Neck- supple, no JVD Lungs- clear to auscultation Heart- +tachycardia Abdomen- normal bowel sounds, soft, nontender Extremities- no calf tenderness Neuro- alert, oriented x 3; PERRL, EOMI A/P Sepsis Obstructing ureteral stone OTILIA Transaminitis Complicated UTI CT abd/pelvis showed 6 mm obstructing calculus at the left vesicoureteral junction. This causes mild to moderate left hydroureteronephrosis. Additional small nonobstructing calculi are seen in both kidneys. Received IVF and Cefepime in the ER. Will continue IV fluid hydration and abx. Case discussed with urology that will take her to the OR emergent left ureteral stent placement. Assignment Clerk was notified and pt will go to the ICU for close monitor. Will follow blood cx and urine cx. Will repeat BMP to monitor anion gap. Follow up lactate level and troponin. Check LFT in am. Continue monitor closely MD Micky
[2021-12-05 15:42] LABS: Bilirubin Urine 1+ (Negative)
--- NOTE | 2021-12-05 15:54 | Anesthesiology Consultation ---
Date of Service December 05, 2021 Assessment & Plan Chart Review Chart Review: Acceptable Risk for Surgery and Patient NOT seen in Pre Admission Testing Consults Requested none ASA [id number] Proposed Anesthesia Anesthesia Type: MAC Risk / Benefits Reviewed With: PT / POA / Parent / Guardian, Accepts Plan and Informed Consent Obtained History Surgery Operation Date: 12/05/21 11:45 Proposed Procedures p Left Ureteral Stent Insertion - Rafa Allan MD Height/Weight Height: 5 ft 4 in Weight: 72.575 kg Allergies Allergy/AdvReac Type Severity Reaction Status Date / Time Sulfa (Sulfonamide Allergy Unknown Unknown Verified 08/25/19 17:30 Antibiotics) lisinopril AdvReac Unknown Cough Verified 08/25/19 17:30 Medications Home Medications Medication Instructions Recorded Confirmed Last Taken aspirin 81 mg tablet,delayed 81 mg PO QAM 07/07/18 08/25/19 08/25/19 release atorvastatin 20 mg tablet 20 mg PO QAM 07/07/18 08/25/19 08/25/19 ezetimibe 10 mg tablet 10 mg PO QAM 07/07/18 08/25/19 08/25/19 hydrochlorothiazide 12.5 mg capsule 12.5 mg PO QAM 07/07/18 08/25/19 08/25/19 metformin 1,000 mg tablet 1,000 mg PO BIDM 07/07/18 08/25/19 08/25/19 QAM empagliflozin 25 mg tablet 25 mg PO QAM 08/25/19 08/25/19 08/25/19 (Jardiance) NPO Date Last Intake of Fluids: 12/04/21 Time Last Intake of Fluids: 23:00 Last Intake of Fluids Comment: pt states she had sips of water throught the night Date Last Intake of Solids: 12/03/21 Time Last Intake of Solids: 20:00 Past Medical History Medical History (Updated 12/05/21 @ 15:54 by Lizbeth Christian PA-C) Diabetes mellitus, type 2 NIDDM GERD (gastroesophageal reflux disease) OCCASIONAL. Hyperlipidemia Hyperlipidemia (11/22/12) Hypertension Kidney stone on right side Transient ischemic attack (TIA) ~10-15 YEARS AGO. TAKES ASPIRIN 81 DAILY URI, acute Exercise / Class Metabolic Activity III < 4 Walking/Shop/Light housework Past Family History Family History Grandmother (Paternal) Family history of diabetes mellitus Father Family history of diabetes mellitus Past Surgical History Surgical History History of bilateral tubal ligation History of colonoscopy History of laparoscopy History of parathyroidectomy R/T INCREASED IRON IN BLOOD AND ENLARGEMENT Hx of prior ablation treatment uterine ablation per pt Past Anesthesia History No Hx of Anesthesia Complications and No Family Hx of Anesthesia Complications History of PONV No Hx of PONV and No Hx of Motion Sickness Social History Smoking Status: Never smoker Hx Alcohol Use: Yes alcohol intake frequency: holidays/special occasions only Hx Substance Use: No substance use type: does not use Physical Exam Vital Signs Last Vital Signs Temp 37.0 C 12/05/21 15:15 Pulse 129 H 12/05/21 15:15 Resp 20 12/05/21 15:15 BP 115/79 12/05/21 15:15 Pulse Ox 95 12/05/21 15:15 O2 Del Method 12/05/21 15:15 O2 Flow Rate 2 12/05/21 14:02 Constitutional + obese ENMT Mouth: no dentition abnormality Thyromental Distance: < 3.5 Finger Breadths Mallampati Class: III Neck normal visual inspection and trachea midline; neck extension not limited Respiratory normal respiratory effort Auscultation: + diminished lung sounds Cardiovascular Rate/Rhythm: + tachycardic Heart Sounds: no murmur Vessels: no carotid bruit Musculoskeletal Spine: normal cervical ROM Extremities: full ROM of extremities Neurologic moves all extremities Motor/Sensory: no sensory deficit Psychiatric Orientation: alert and oriented x 3 Testing Laboratory Results 12/05/21 12:25 12/05/21 12:25 Urine Color Dark Yellow 12/05/21 14:50 Urine Appearance Turbid (Clear) A 12/05/21 14:50 Urine pH 5.0 (4.5-7.5) 12/05/21 14:50 Ur Specific [place] 1.020 (1.000-1.030) 12/05/21 14:50 Urine Protein 3+ (Negative) H 12/05/21 14:50 Urine Glucose (UA) 3+ (Negative) H 12/05/21 14:50 Urine Ketones Trace (Negative) H 12/05/21 14:50 Urine Nitrite Positive (Negative) A 12/05/21 14:50 Ur Leukocyte Esterase 3+ (Negative) H 12/05/21 14:50 12/05/21 12/05/21 15:33 11:49 POC Glucose 191 H 237 H Electrocardiogram Date: 12/05/21 Findings: + ST @ (at 116;? infer. infarct)
[2021-12-05] MEDS ORDERED: fentaNYL citrate 100 MCG/2 ML VIAL IV PRN (16:12)
[2021-12-05] MEDS ORDERED: FLUMAZENIL 0.1 MG/1 ML 10 ML VIAL IV PRN (16:12)
[2021-12-05] MEDS ORDERED: LABETALOL HCL IV 5 MG/ML 20ML IV PRN (16:12)
[2021-12-05] MEDS ORDERED: PROMETHAZINE HCL 12.5 MG in SODIUM CHLORIDE 0.9% 50 ML IV PRN (16:12)
[2021-12-05] MEDS ORDERED: ePHEDrine sulfate 50 MG/ML AMP IV PRN (16:12)
[2021-12-05] MEDS ORDERED: ONDANSETRON INJ 2 MG/ML 2 ML VIAL IV PRN (16:12)
[2021-12-05] MEDS ORDERED: NALOXONE HCL 0.4 MG/1 ML VIAL/CARP IV PRN (16:12)
[2021-12-05] MEDS ORDERED: ATROPINE SULFATE 0.1 MG/ML 10ML SYR IV PRN (16:12)
[2021-12-05] MEDS ORDERED: DIATRIZOATE MEGLUMINE 30% 100ML VIAL INSTIL ONE (16:20)
--- NOTE | 2021-12-05 16:34 | Operative Report ---
PG Post Operative Report Pre & Post Diagnosis Operation Date: 12/05/21 11:45 Pre-Op Diagnosis: Left ureteral stone Post-Op Diagnosis: Left ureteral stone I identified the patient and participated in the time-out.: Yes Procedure Operation Date: 12/05/21 11:45 Actual Procedures p Cystoscopy, Left Ureteral Stent Insertion(Left) - Rafa Allan MD Surgeon Rafa Allan MD Cras none Estimated Blood Loss 0 Findings Consistent with Post-Op Diagnosis Specimens none Description of Procedure The patient was identified in the preoperative holding area, appropriate informed consents were reviewed and completed and the patient was transferred to the operative suite. Upon arrival, appropriate antibiotics and anesthesia were administered and the patient was placed in dorsal lithotomy position and prepped and draped in sterile fashion. To begin the case I passed a 22 Dutch cystoscope with 30 degree lens. In spection revealed a healthy-appearing bladder without a lot of urine, she did have a Calvo catheter prior to arrival. There were no stones visualized protruding from either the left or right orifice, however there was mounding of the distal left ureter consistent with the stone seen on preoperative imaging. To my attention to this left UO and cannulated it with a sensor wire and a 5 Dutch open-ended catheter. The wire advanced to the kidney without difficulty. There was a discharge of murky urine from the ureter. I then placed a 6 Dutch by 24 cm double-J stent but we did not feel that it reached the kidney adequately. I internal communications intern withdrew this, advanced a wire back into the kidney followed by a 5 Dutch open-ended catheter. I then opacified the kidney which showed minimal hydronephrosis. A new 6 x 26 cm stent was placed into the renal pelvis with a good curl seen there as well as the bladder. I then concluded the case. She was reversed of anesthesia and taken to the recovery room in stable condition. There were no complications. I attest to the content of the Intraoperative Record and any orders documented therein. Any exceptions are noted below.
--- NOTE | 2021-12-05 16:38 | Fluoroscopy Report ---
FL retrograde includes kub CLINICAL HISTORY: LEFT SIDE STENT PLACEMENT TECHNIQUE: 2 views were obtained with the C-arm in the OR with the above procedure. Total fluoroscopy time was 13.2 seconds. Total skin dose was 3.09 mGy. Comparison: None available at the time of this dictation. FINDINGS/IMPRESSION: Intraoperative images were obtained of retrograde pyelogram. Please correlate with intraoperative fluoroscopy and operative report. ACT 112: Negative or not required by law. Electronically signed by: Cb Hunter M.D. 12/05/2021 4:35 PM
--- NOTE | 2021-12-05 17:12 | Anesthesiology Progress Note ---
Date of Service December 05, 2021 Anesthesia Post Procedure Vital Signs Vital Signs: Temp Pulse Pulse Resp BP BP Pulse Ox 12/05/21 17:05 37.6 C H 120 H 20 98/64 L 96 12/05/21 16:55 37.6 C H 121 H 20 102/64 94 12/05/21 16:45 122 H 22 98/65 L 94 12/05/21 16:35 37.7 C H 117 H 22 116/63 95 12/05/21 15:15 37.0 C 129 H 20 115/79 95 12/05/21 14:30 123 H 14 91 12/05/21 14:30 106/53 L 12/05/21 14:17 105/53 L 12/05/21 14:02 123 H 19 94 12/05/21 14:00 125 H 21 12/05/21 14:00 141/77 H 12/05/21 13:30 120 H 22 93 12/05/21 13:30 125/80 12/05/21 13:07 111/75 12/05/21 13:07 117 H 22 12/05/21 13:00 118 H 22 95 12/05/21 12:49 102/63 12/05/21 12:49 114 H 18 96 12/05/21 12:33 116 H 22 12/05/21 12:32 86 L 12/05/21 12:56 96 12/05/21 11:38 37.1 C 123 H 16 87/57 L 90 O2 Del Method O2 Flow Rate 12/05/21 17:05 Non-rebreather 15 12/05/21 16:55 Non-rebreather 15 12/05/21 16:45 Non-rebreather 15 12/05/21 16:35 Oxymask 15 12/05/21 15:15 Room Air 12/05/21 14:30 12/05/21 14:30 12/05/21 14:17 12/05/21 14:02 Nasal Cannula 2 12/05/21 14:00 12/05/21 14:00 12/05/21 13:30 12/05/21 13:30 12/05/21 13:07 12/05/21 13:07 12/05/21 13:00 12/05/21 12:49 12/05/21 12:49 12/05/21 12:33 12/05/21 12:32 Room Air 0 12/05/21 12:56 Nasal Cannula 2 12/05/21 11:38 Room Air Pain Intensity Right Flank: Pain Intensity: 8 Transfer of Care Handoff Completed per policy Notes Mental Status: alert / awake / arousable Patient Amnestic to Procedure: Yes Nausea / Vomiting: adequately controlled Pain: adequately controlled Airway Patency, RR, SpO2: see Notes below (patient wide awake w/ spo2's in mid to high 80's,placed on NRB mask , and SAT's increased to 97%) BP & HR: stable & adequate (patient is tachycardic w/ labile BP) and see Notes below Hydration State: see Notes below (pt. is volume depleted clinically) Anesthetic Complications: no major complications apparent Notes: patient is uroseptic w/ OTILIA
[2021-12-05] MEDS ORDERED: ICU PROTOCOL FOR HYPERGLYCEMIA PRN (17:36)
[2021-12-05] MEDS ORDERED: GLUCOSE 10 TAB/TUBE PO PRN (17:36)
[2021-12-05] MEDS ORDERED: GLUCOSE 40% GEL 15 GM TUBE PO PRN (17:36)
[2021-12-05] MEDS ORDERED: CARBOHYDRATES FOR HYPOGLYCEMIA PO PRN (17:36)
[2021-12-05] MEDS ORDERED: GLUCAGON FOR INJ 1 MG VIAL SQ PRN (17:36)
[2021-12-05] MEDS ORDERED: PNEUMOCOCCAL POLYSACCHARIDES 25 MCG/0.5 ML VIAL/SYR IM ONE (18:21)
[2021-12-05] MEDS: INSULIN ASPART PER UNIT SC SCH ×2 (18:36→21:06)
--- NOTE | 2021-12-05 19:44 | Critical Care Consultation ---
Date of Consultation December 05, 2021 Assessment & Plan (1) Severe sepsis: Impression: 66-year-old female presents to the ICU following hydronephrosis with urinary obstruction due to renal calculus and severe sepsis, now s/p left ureteral cystoscopy with stent. Neuro - [facility] ICU: THROAT: No sore throat, difficulty swallowing, or hoarseness. History of TIAcontinue ASA Cardiac - Hypotension/severe sepsisresolved with fluid resuscitation. No indication for vasopressors at this time. Monitor in ICU maintain maps greater than 65. Hold antihypertensives for now. Respiratory - Lungs clear to auscultation no history of pulmonary disease. Currently maintaining oxygen saturation on room air. Monitor on pulse ox GI - Diabetic diet RENAL/LYTES - AKIcreatinine with normal baseline but currently at 4.24, unsure if this is prerenal in the setting of hypotension or postrenal with obstructive calculi and hydronephrosis. -Fena labs pending -S/p cystoscopy with ureteral stent for obstructive calculi. -Follow urology recommendations -Maintain maps greater than 65 -Avoid nephrotoxins and renally adjust medications -Monitor routine BMPs and replete electrolytes as indicated - Strict I's and O's ENDO - DM type IIhold orals for now. Hemoglobin A1c pending. Sliding scale. ICU hy perglycemic protocol No history of thyroid disease HEME - H&H stable, monitor routine CBC ID - Sepsismost likely secondary to urinary source given urinalysis and obstructive calculi -Urine culture and blood cultures pending. Lactate cleared. Procalcitonin greater than 200. Febrile. WBC 23,000 -Continue with cefepime LINES/IV ACCESS - Peripheral IVs DVT PROPHYLAXIS - SCDs] I have personally spent [] minutes of critical care time in the direct management of this patient. This is a life/limb threatening event. This includes time spent evaluating patient, direct bedside care, chart review, placing orders, interpretation of diagnostic studies, discussion with consultants, patient, and family members, as well as other required patient management activities. This time is exclusive of all separately billable procedures, and teaching time and separate from and in addition to any other critical care service time. Thank you for allowing us to participate in the care of this patient. Please refer to my attending physician's documentation for any further recommendations. (2) Lactic acidosis: (3) HTN (hypertension): (4) Hydronephrosis with urinary obstruction due to ureteral calculus: (5) Complicated UTI (urinary tract infection): (6) Dyslipidemia: (7) Diabetes mellitus, type 2: (8) Acute kidney injury: History of Present Illness Attending Physician: Adalid Weeks MD History of Present Illness Patient is a 66-year-old female past medical history of DM type II, HTN, dyslipidemia, CKD who presented to the ED emergency department with flank pain, nausea and vomiting that started 2 days ago. Patient was seen in [place] [facility] yesterday and was discharged with instructions to follow-up with urology but continued to feel worse overnight. She was febrile and tachycardic with hypotensive on arrival and had elevated lactate of 6.3 and WBC of 21.82. Procalcitonin greater than 200. She underwent fluid resuscitation was started on broad-spectrum antibiotics. CT abdomen and pelvis revealed 6 mm obstructing calculus of the left ureteral with moderate left hydronephrosis. Patient underwent left cystoscopy with left ureteral stent insertion per urology and is now transferred to ICU postop. On arrival to the ICU the patient is alert and oriented. She denies any pain and reports that previous flank pain is now resolved. She no longer reports nausea or vomiting. She did have a low-grade fever on arrival. She is otherwise hemodynamically stable without use of vasopressors and is currently maintaining oxygen saturation on room air. She denies any headache dizziness, cough, chest pain, shortness of breath, palpitations, diarrhea, changes in gait, swelling in hands and feet. Allergies Allergy/AdvReac Type Severity Reaction Status Date / Time Sulfa (Sulfonamide Allergy Unknown Unknown Verified 08/25/19 17:30 Antibiotics) lisinopril AdvReac Unknown Cough Verified 08/25/19 17:30 Home Medications Medication Instructions Recorded Confirmed Type aspirin 81 mg tablet,delayed 81 mg PO QAM 07/07/18 12/05/21 History release ezetimibe 10 mg tablet 10 mg PO QAM 07/07/18 12/05/21 History empagliflozin 25 mg tablet 25 mg PO QAM 08/25/19 12/05/21 History (Jardiance) atorvastatin 10 mg tablet 10 mg PO DAILY 12/05/21 12/05/21 History glimepiride 4 mg tablet 4 mg PO DAILY 12/05/21 12/05/21 History hydrochlorothiazide 25 mg tablet 25 mg PO DAILY 12/05/21 12/05/21 History metformin 750 mg tablet,extended 1,500 mg PO DAILY 12/05/21 12/05/21 History release 24 hr polyethylene glycol 3350 17 gram 17 g PO DAILY PRN Constipation 12/05/21 12/05/21 History oral powder packet (Miralax) Patient History Medical History Diabetes mellitus, type 2 NIDDM Dyslipidemia GERD (gastroesophageal reflux disease) OCCASIONAL. HTN (hypertension) Hypertension Recurrent kidney stones Transient ischemic attack (TIA) ~10-15 YEARS AGO. 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 Hx of prior ablation treatment uterine ablation per pt Family History Grandmother (Paternal) Family history of diabetes mellitus Father Family history of diabetes mellitus Social History Smoking Status: Never smoker Second Hand Exposure: Yes ( A CHILD); Hx Alcohol Use: No Hx Substance Use: No Preferred Language: Czech Communication Ability: Effective Supervisor Forming Department Required: No Beliefs That Will Affect Care: None Current Living Situation: Significant Other Other Information That Helps Us Care for You: No Feels Safe at Home: Yes Safety Concerns: Feels Safe At This Time Assistive Devices: Glasses Review of Systems Review of Systems: All systems reviewed & are unremarkable except as noted in HPI & below Physical Exam Constitutional: WD/WN, vitals as above Eyes: PERRL, conjunctivae normal, anicteric sclerae ENMT: external ear and nose normal, oropharynx normal Neck: trachea midline, no thyromegaly Respiratory: normal respiratory effort, lungs clear to auscultation Cardiovascular: RRR, no murmur, no edema Rate/Rhythm: + tachycardic Heart Sounds: normal S1 and normal S2 Extremities: normal capillary refill; no edema Gastrointestinal (Abdomen): normal bowel sounds, soft, nontender, no hepatosplenomegaly Musculoskeletal: no cyanosis or clubbing, extremities motor strength 5/5 Skin: no rashes, warm and dry Neurologic: PERRL, EOMI, accommodation nl, no face palsy, no dysarthria Psychiatric: A+Ox3, euthymic affect Results & Data Results & Data ([facility]) Vital Signs (Past 12 Hours) Vital Signs Temp Pulse Pulse Resp BP BP Pulse Ox 12/05/21 19:25 122 H 12/05/21 19:12 37.8 C H 12/05/21 18:37 12/05/21 18:00 130 H 25 H 90 12/05/21 18:00 117/80 12/05/21 18:09 37.6 C H 128 H 16 117/80 92 12/05/21 17:33 129 H 24 114/73 91 12/05/21 17:05 37.6 C H 120 H 20 98/64 L 96 12/05/21 16:55 37.6 C H 121 H 20 102/64 94 12/05/21 16:45 122 H 22 98/65 L 94 12/05/21 16:35 37.7 C H 117 H 22 116/63 95 12/05/21 15:15 37.0 C 129 H 20 115/79 95 12/05/21 14:30 123 H 14 91 12/05/21 14:30 106/53 L 12/05/21 14:17 105/53 L 12/05/21 14:02 123 H 19 94 12/05/21 14:00 125 H 21 12/05/21 14:00 141/77 H 12/05/21 13:30 120 H 22 93 12/05/21 13:30 125/80 12/05/21 13:07 111/75 12/05/21 13:07 117 H 22 12/05/21 13:00 118 H 22 95 12/05/21 12:49 102/63 12/05/21 12:49 114 H 18 96 12/05/21 12:33 116 H 22 12/05/21 12:32 86 L 12/05/21 12:56 96 12/05/21 11:38 37.1 C 123 H 16 87/57 L 90 O2 Del Method O2 Flow Rate 12/05/21 19:25 12/05/21 19:12 12/05/21 18:37 Nasal Cannula 3 12/05/21 18:00 12/05/21 18:00 12/05/21 18:09 Nasal Cannula 2 12/05/21 17:33 12/05/21 17:05 Non-rebreather 15 12/05/21 16:55 Non-rebreather 15 12/05/21 16:45 Non-rebreather 15 12/05/21 16:35 Oxymask 15 12/05/21 15:15 Room Air 12/05/21 14:30 12/05/21 14:30 12/05/21 14:17 12/05/21 14:02 Nasal Cannula 2 12/05/21 14:00 12/05/21 14:00 12/05/21 13:30 12/05/21 13:30 12/05/21 13:07 12/05/21 13:07 12/05/21 13:00 12/05/21 12:49 12/05/21 12:49 12/05/21 12:33 12/05/21 12:32 Room Air 0 12/05/21 12:56 Nasal Cannula 2 12/05/21 11:38 Room Air Coding Level of Care Code 46150 Inpt Consult Level 3 Diagnoses Severe sepsis A41.9; R65.20 Lactic acidosis E87.2 HTN (hypertension) I10 Hydronephrosis with urinary obstruction due to ureteral calculus N13.2 Complicated UTI (urinary tract infection) N39.0 Dyslipidemia E78.5 Diabetes mellitus, type 2 E11.9 Acute kidney injury N17.9
[2021-12-05] MEDS ORDERED: CEFEPIME 2,000 MG in SYRINGE 0 ML IV SCH (20:30)
[2021-12-05 21:39] LABS: Anion Gap 13 (3-11); BUN Creatinine Ratio 15.7 (10-20); Blood Urea Nitrogen 63 mg/dl (6-23); Calcium 7.4 mg/dl (8.5-10.1); Carbon Dioxide 20 mmol/L (21-32); Chloride 103 mmol/L (98-107); Creatinine Clr Calc Pharmacy 13.8 ml/min; Est GFR (African American) 12.8 ml/min; Est GFR (Non-African American) 11.1 ml/min; Glucose 159 mg/dl (70-99(Fasting)); Sodium 136 mmol/L (136-145)
[2021-12-05] MEDS: NORMOSOL-R 1,000 ML IV SCH (22:17)
[2021-12-06] MEDS: POTASSIUM CHLORIDE / WTR 10 MEQ/100 ML PLCT IV SCH ×2 (00:58→02:08)
--- NOTE | 2021-12-06 06:10 | Electrocardiogram Report ---
Test Reason : Blood Pressure : / mmHG Vent. Rate : 116 BPM Atrial Rate : 116 BPM P-R Int : 150 ms QRS Dur : 094 ms QT Int : 328 ms P-R-T Axes : 047 -16 038 degrees QTc Int : 455 ms Sinus tachycardia Possible Inferior infarct (cited on or before 09-JUL-2018) Abnormal ECG When compared with ECG of 09-JUL-2018 08:27, Vent. rate has increased BY 58 BPM Confirmed by Leandro Carpenter ([id number]) on 12/06/2021 6:10:23 AM Referred By: REFERRED SELF Confirmed By:Leandro Carpenter
[2021-12-06] MEDS: DEXTROSE 50% 50 ML SYRINGE IV PRN ×2 (06:43→06:54)
[2021-12-06] MEDS: INSULIN ASPART PER UNIT SC SCH ×4 (06:44→20:05)
[2021-12-06] MEDS: NORMOSOL-R 1,000 ML IV SCH (06:44)
[2021-12-06 07:25] LABS: BUN Creatinine Ratio 16.9 (10-20); Calcium 7.1 mg/dl (8.5-10.1); Creatinine Clr Calc Pharmacy 14.3 ml/min; Est GFR (African American) 12.8 ml/min; Est GFR (Non-African American) 11.1 ml/min; Magnesium 1.5 mg/dl (1.7-2.4); Phosphorus 4.3 mg/dl (2.5-4.9); Potassium 3.6 mmol/L (3.5-5.1)
[2021-12-06] MEDS ORDERED: MAGNESIUM SULFATE / D5W 1 GM/100 ML BAG IV SCH (07:30)
[2021-12-06 07:50] LABS: Hematocrit (blood only) 32.2 % (34.1-44.9); Hemoglobin 11.3 g/dl (12.0-16.0); Mean Corpuscular Hemoglobin 28.5 pg (25.0-34.0); Mean Corpuscular Hgb Conc 35.1 g/dL (32.0-36.0); Mean Corpuscular Volume 81.3 fL (80.0-100.0); Mean Platelet Volume 13.4 fL (9.4-12.3); Platelet Count 41 K/uL (130-400); RDW Coefficient of Variation 13.2 % (11.5-14.5); RDW Standard Deviation 39.1 fL (36.4-46.3); Red Blood Count 3.96 M/uL (3.93-5.22); White Blood Count 12.31 K/ul (4.8-10.8)
[2021-12-06 07:53] LABS: Acanthocytes 2+; Echinocytes 2+; Microcytosis Present; Toxic Granulation 1+; Toxic Vacuolation 1+
[2021-12-06 07:55] LABS: Basophils % (auto) 0.4 %; Eosinophils % (auto) 0.1 %; Lymphocytes % (auto) 7.1 %; Monocytes % (auto) 1.9 %
[2021-12-06 07:56] LABS: Basophils # (auto) 0.05 K/uL (0-0.2); Eosinophils # (auto) 0.01 K/uL (0-0.50); Lymphocytes # (auto) 0.88 K/uL (1.2-3.4); Monocytes # (auto) 0.24 K/uL (0.24-0.82)
[2021-12-06 08:01] LABS: Neutrophils % (auto) 87.5 %
[2021-12-06 08:03] LABS: Neutrophils # (auto) 10.46 K/uL (1.4-6.5)
[2021-12-06] MEDS: ASPIRIN 81 MG CHEW PO SCH (08:03)
[2021-12-06] MEDS: ATORVASTATIN 10 MG TAB PO SCH (08:03)
[2021-12-06] MEDS: D5W AND 1/2NSS 1,000 ML IV SCH ×2 (08:07→18:01)
[2021-12-06] MEDS: MAGNESIUM SULFATE / D5W 1 GM/100 ML BAG IV SCH ×2 (08:07→10:01)
[2021-12-06] MEDS ORDERED: ONDANSETRON INJ 2 MG/ML 2 ML VIAL ONE (08:17)
--- NOTE | 2021-12-06 08:44 | Critical Care Progress Note ---
Date of Service December 06, 2021 Assessment & Plan (1) Severe sepsis: Plan: Impression: 66-year-old female presents to the ICU following hydronephrosis with urinary obstruction due to renal calculus and severe sepsis, now s/p left ureteral cystoscopy with stent. Neuro - History of TIAcontinue ASA Cardiac - Hypotension/severe sepsisresolved with fluid resuscitation. No indication for vasopressors at this time. Hold antihypertensives for now. Respiratory - Lungs clear to auscultation no history of pulmonary disease. Currently maintaining oxygen saturation on room air. Monitor on pulse ox GI - Diabetic diet RENAL/LYTES - AKIcreatinine with normal baseline mild improvement -Fena labs pending -S/p cystoscopy with ureteral stent for obstructive calculi. -Follow urology recommendations Repeat BMP at 2 PM - Strict I's and O's ENDO - DM type IIhold orals for now. -ICU hyperglycemic protocol No history of thyroid disease HEME - H&H stable, monitor routine CBC ID - Severe sepsismost likely secondary to urinary source given urinalysis and obstructive calculi Gram-negative bacteremia -1400: Findings consistent with E. coli de-escalate to ceftriaxone -Repeat blood culture in a.m. LINES/IV ACCESS - Peripheral IVs DVT PROPHYLAXIS - SCDs 1600: Patient has had hemodynamic stability and improvement in labs would be a candidate for downgrade out of ICU (2) Lactic acidosis: (3) HTN (hypertension): (4) Hydronephrosis with urinary obstruction due to ureteral calculus: (5) Complicated UTI (urinary tract infection): (6) Dyslipidemia: (7) Diabetes mellitus, type 2: (8) Acute kidney injury: Admission and Anticipated Discharge Date Admission Date: December 05, 2021 Subjective No overnight events Physical Exam Physical Exam: General: Alert. nontoxic. Skin: Warm, dry, Head: Atraumatic Ears, nose, mouth and throat: airway patent Cardiovascular: Normal peripheral perfusion Respiratory: no respiratory distress Gastrointestinal: Non distended Musculoskeletal: No deformity Results & Data Results & [facility] ([facility]) Vital Signs (Past 12 Hours) Vital Signs Temp Pulse Resp BP Pulse Ox O2 Del Method O2 Flow Rate 12/06/21 08:30 106 H 22 92 12/06/21 08:01 112 H 14 92 Room Air 12/06/21 08:01 89/63 L 12/06/21 07:00 108 H 17 95 Nasal Cannula 2 12/06/21 07:00 112/62 12/06/21 06:30 106 H 25 H 91 12/06/21 06:00 107 H 24 94 12/06/21 06:00 90/50 L 12/06/21 05:30 107 H 22 96 12/06/21 08:35 Room Air 12/06/21 05:00 107 H 24 12/06/21 04:03 103/54 L 12/06/21 04:03 108 H 24 90 2 12/06/21 04:00 109 H 22 96 12/06/21 03:47 111 H 24 93 2 12/06/21 03:47 103/54 L 12/06/21 03:05 108 H 23 97 2 12/06/21 03:05 96/60 L 12/06/21 03:00 109 H 22 97 12/06/21 03:52 37.3 C 12/06/21 02:00 112 H 16 95 2 12/06/21 02:00 109/60 12/06/21 01:03 83/68 L 12/06/21 01:03 113 H 22 12/06/21 01:01 112 H 24 95 12/06/21 01:00 113 H 26 H 94 12/06/21 00:00 116 H 25 H 92 12/06/21 00:00 90/54 L 12/05/21 23:00 115 H 22 93 2 12/05/21 23:00 94/58 L 12/05/21 22:00 122 H 15 91 2 12/05/21 22:00 102/53 L 12/06/21 00:15 115 H 12/05/21 22:24 37.6 C 12/05/21 21:00 123 H 22 94 2 12/05/21 21:00 110/61 Critical Care Results & Data Vital Signs (Past 12 Hours) Vital Signs Temp Pulse Resp BP Pulse Ox O2 Del Method O2 Flow Rate 12/06/21 15:00 108 H 27 H 91 12/06/21 15:00 132/67 12/06/21 14:00 107 H 28 H 94 12/06/21 14:00 127/67 12/06/21 13:00 106 H 26 H 93 Room Air 12/06/21 13:00 113/61 12/06/21 12:00 104 H 21 93 12/06/21 12:00 109/61 12/06/21 08:00 36.7 C 12/06/21 11:00 101 H 22 93 Room Air 12/06/21 11:00 99/61 L 12/06/21 10:30 99 H 19 95 12/06/21 10:00 101 H 18 96 12/06/21 10:00 98/67 L 12/06/21 09:44 104 H 22 93 12/06/21 09:44 102/58 L 12/06/21 09:30 104 H 22 91 12/06/21 09:05 112 H 28 H 91 12/06/21 11:41 36.6 C 12/06/21 08:30 106 H 22 92 12/06/21 08:01 112 H 14 92 Room Air 12/06/21 08:01 89/63 L 12/06/21 07:00 108 H 17 95 Nasal Cannula 2 12/06/21 07:00 112/62 12/06/21 06:30 106 H 25 H 91 12/06/21 06:00 107 H 24 94 12/06/21 06:00 90/50 L 12/06/21 05:30 107 H 22 96 12/06/21 08:35 Room Air 12/06/21 05:00 107 H 24 Lab & Micro Results (Past 24 Hours) RBC 3.96 M/uL (3.93-5.22) 12/06/21 WBC 12.31 K/ul (4.8-10.8) H 12/06/21 Hgb 11.3 g/dl (12.0-16.0) L 12/06/21 Hct 32.2 % (34.1-44.9) L 12/06/21 MCV 81.3 fL (80.0-100.0) 12/06/21 MCH 28.5 pg (25.0-34.0) 12/06/21 MCHC 35.1 g/dL (32.0-36.0) 12/06/21 RDW Standard Deviation 39.1 fL (36.4-46.3) 12/06/21 RDW Coefficient of Variation 13.2 % (11.5-14.5) 12/06/21 Plt Count 41 K/uL (130-400) L 12/06/21 MPV 13.4 fL (9.4-12.3) H 12/06/21 Neutrophils (%) (Auto) 87.5 % 12/06/21 Lymphocytes (%) (Auto) 7.1 % 12/06/21 Monocytes # (Auto) 0.24 K/uL (0.24-0.82) 12/06/21 Eosinophils # (Auto) 0.01 K/uL (0-0.50) 12/06/21 Immature Granulocyte % (Auto) 3.0 % 12/06/21 Neutrophils # (Auto) 10.46 K/uL (1.4-6.5) H 12/06/21 Lymphocytes # (Auto) 0.88 K/uL (1.2-3.4) L 12/06/21 Monocytes # (Auto) 0.24 K/uL (0.24-0.82) 12/06/21 Eosinophils # (Auto) 0.01 K/uL (0-0.50) 12/06/21 Basophils # (Auto) 0.05 K/uL (0-0.2) 12/06/21 Immature Granulocyte # (Auto) 0.40 K/uL (0.00-0.02) H 12/06 Echinocytes 2+ 12/06/21 Microcytosis Present 12/06/21 Toxic Granulation 1+ 12/06/21 Toxic Vacuolation 1+ 12/06/21 Acanthocytes 2+ 12/06/21 Na 137 mmol/L (136-145) 12/06/21 K 3.6 mmol/L (3.5-5.1) 12/06/21 Cl 104 mmol/L (98-107) 12/06/21 CO2 20 mmol/L (21-32) L 12/06/21 Anion Gap 13 (3-11) H 12/06/21 BUN 68 mg/dl (6-23) H 12/06/21 Creatinine 4.02 mg/dl (0.6-1.2) H 12/06/21 Estimated GFR ( Amer) 12.8 ml/min 12/06/21 Estimated GFR (Non-Af Amer) 11.1 ml/min 12/06/21 BUN/Creatinine Ratio 16.9 (10-20) 12/06/21 Glu 105 mg/dl (70-99(Fasting)) H 12/06/21 Ca 7.1 mg/dl (8.5-10.1) L 12/06/21 Phosphorus Level 4.3 mg/dl (2.5-4.9) 12/06/21 Mg 1.5 mg/dl (1.7-2.4) L 12/06/21 06:12 Calcium Level 7.1 mg/dl (8.5-10.1) L 12/06/21 06:12 Microbiology 12/05/21 12:25 Aerobic Blood Culture - Preliminary Blood No growth in Aerobic bottle after 24 hours. 12/05/21 12:25 Aerobic Blood Culture - Preliminary Blood No growth in Aerobic bottle after 24 hours. Anaerobic Blood Culture - Preliminary Gram negative bacilli 12/05/21 14:50 Urine Culture - Preliminary Urine,Clean Catch Gram negative bacilli Diagnostic Findings (Past 24 Hours) Retrograde Pyelogram 12/05/21 00:00 FL retrograde includes kub CLINICAL HISTORY: LEFT SIDE STENT PLACEMENT TECHNIQUE: 2 views were obtained with the C-arm in the OR with the above procedure. Total fluoroscopy time was 13.2 seconds. Total skin dose was 3.09 mGy. Comparison: None available at the time of this dictation. FINDINGS/IMPRESSION: Intraoperative images were obtained of retrograde pyelogram. Please correlate with intraoperative fluoroscopy and operative report. ACT 112: Negative or not required by law. Electronically signed by: Cb Hunter M.D. 12/05/2021 4:35 PM I & O Totals 24 Hours 12/05/21 12/06/21 12/07/21 06:59 06:59 06:59 Intake Total 5400 / 5400 195 / 195 Output Total 671 / 671 403 / 403 Balance 4729 / 4729 -208 / -208 Cumulative 12/05/21 11:32 thru 12/06/21 15:37 Intake Total 5595 Output Total 1074 Balance 4521 RT Ventilator Mngmt (Last Documented) Ventilator Ordered Settings Respiratory Rate 27 12/06/21 15:00 Ventilator - PT Measurements Respiratory Rate 27 Coding Level of Care Code 31175 Subseq Hosp Care Lvl 3 Diagnoses Severe sepsis A41.9; R65.20 Lactic acidosis E87.2 HTN (hypertension) I10 Hydronephrosis with urinary obstruction due to ureteral calculus N13.2 Complicated UTI (urinary tract infection) N39.0 Dyslipidemia E78.5 Diabetes mellitus, type 2 E11.9 Acute kidney injury N17.9
--- NOTE | 2021-12-06 09:38 | Urology Progress Note ---
Date of Service December 06, 2021 Assessment & Plan (1) Severe sepsis: (2) Hydronephrosis with urinary obstruction due to ureteral calculus: (3) Complicated UTI (urinary tract infection): Plan: 66 yo F admitted for severe sepsis secondary to an obstructing left ureteral stone. - Pt POD #1 s/p cystoscopy and left ureteral stent placement. - Afebrile overnight, remains mildly tachycardic, SBPs 80-100s. - Urine and blood cultures are pending, she is on IV Cefepime - follow cultures and narrow per sensitivity data. - Creatinine remains elevated but improved to 4.02, WBC downtrending. - Calvo intact and draining, recommend maintain at present. - Tolerating left ureteral stent with minimal bother. - Expected clinical course reviewed, all questions answered. - Will arrange outpatient follow-up with our service to discuss definitive stone management. - Continue supportive care, antibiotics and management per primary services. Admission and Anticipated Discharge Date Admission Date: December 05, 2021 Supervising Physician Co-Signing Physician Notes Discussed patient with JN. Agree with plan. Subjective Patient seen and examined in ICU this AM. No acute issues overnight. She is resting in bed. Denies flank or abdominal pain. She reports diarrhea and nausea this AM. No vomiting. Calvo intact, patent and draining concentrated yellow urine. No dysuria or hematuria. No fever or chills. Review of Systems Constitutional: as per Subjective / HPI Gastrointestinal: as per Subjective / HPI Genitourinary: as per Subjective / HPI Physical Exam Constitutional: well developed and well nourished; no acute distress Respiratory: normal respiratory effort; no respiratory distress and no labored breathing Cardiovascular: Extremities: no pedal edema Gastrointestinal (Abdomen): Inspection/Auscultation: abdomen normal to inspection; abdomen not distended Musculoskeletal: Head/Neck/Chest: normocephalic and head atraumatic Extremities: extremities normal to inspection Skin: no rashes, warm and dry Neurologic: moves all extremities and awake Psychiatric: Orientation: alert and oriented x 3 Genitourinary: Calvo intact and draining concentrated yellow urine Results & Data ([facility]) Vital Signs (Past 12 Hours) Vital Signs Temp Pulse Resp BP Pulse Ox O2 Del Method O2 Flow Rate 12/06/21 08:30 106 H 22 92 12/06/21 08:01 112 H 14 92 Room Air 12/06/21 08:01 89/63 L 12/06/21 07:00 108 H 17 95 Nasal Cannula 2 12/06/21 07:00 112/62 12/06/21 06:30 106 H 25 H 91 12/06/21 06:00 107 H 24 94 12/06/21 06:00 90/50 L 12/06/21 05:30 107 H 22 96 12/06/21 08:35 Room Air 12/06/21 05:00 107 H 24 12/06/21 04:03 103/54 L 12/06/21 04:03 108 H 24 90 2 12/06/21 04:00 109 H 22 96 12/06/21 03:47 111 H 24 93 2 12/06/21 03:47 103/54 L 12/06/21 03:05 108 H 23 97 2 12/06/21 03:05 96/60 L 12/06/21 03:00 109 H 22 97 12/06/21 03:52 37.3 C 12/06/21 02:00 112 H 16 95 2 12/06/21 02:00 109/60 12/06/21 01:03 83/68 L 12/06/21 01:03 113 H 22 12/06/21 01:01 112 H 24 95 12/06/21 01:00 113 H 26 H 94 12/06/21 00:00 116 H 25 H 92 12/06/21 00:00 90/54 L 12/05/21 23:00 115 H 22 93 2 12/05/21 23:00 94/58 L 12/05/21 22:00 122 H 15 91 2 12/05/21 22:00 102/53 L 12/06/21 00:15 115 H 12/05/21 22:24 37.6 C PG Care Time/CCT Total # of Minutes Spent Total Time Spent with Patient: Total time spent is greater than 50% in coordination of care (as documented) at patient's floor/unit and/or counseling patient: Coding Level of Care Code 50348 Subseq Hosp Care Lvl 2 Diagnoses Severe sepsis A41.9; R65.20 Hydronephrosis with urinary obstruction due to ureteral calculus N13.2 Complicated UTI (urinary tract infection) N39.0
[2021-12-06 10:36] LABS: A calco-baum cmplx NotReported Not Detected (NotDetected); Bact fragilis Not Reported Not Detected (NotDetected); C auris Not Reported Not Detected (NotDetected); CTX-M Resistant Gene Not Detected (NotDetected); Calbicans Not Reported Not Detected (NotDetected); Candida glabrata Not Reported Not Detected (NotDetected); Candida krusei Not Reported Not Detected (NotDetected); Cneoformans/gatti Not Reported Not Detected (NotDetected); Cparapsilosis Not Reported Not Detected (NotDetected); Ctropicalis Not Reported Not Detected (NotDetected); E cloacae compx Not Reported Not Detected (NotDetected); Efaecalis Not Reported Not Detected (NotDetected); Efaecium Not Reported Not Detected (NotDetected); Enterobacterales DETECTED (NotDetected); Enterobacterales Not Reported DETECTED (NotDetected); Escherichia coli Not Reported DETECTED (NotDetected); H influenzae Not Reported Not Detected (NotDetected); IMP Resistant Gene Not Detected (NotDetected); K aerogenes Not Reported Not Detected (NotDetected); KPC Resistant Gene Not Detected (NotDetected); Koxytoca Not Reported Not Detected (NotDetected); Kpneumoniae grp Not Reported Not Detected (NotDetected); Lmonocyt Not Reported Not Detected (NotDetected); N meningitidis Not Reported Not Detected (NotDetected); NDM Resistant Gene Not Detected (NotDetected); OXA 48 Like Resistant Gene Not Detected (NotDetected); P aeruginosa Not Reported Not Detected (NotDetected); Proteus spp Not Reported Not Detected (NotDetected); Salmonella spp Not Reported Not Detected (NotDetected); Smarcescens Not Reported Not Detected (NotDetected); Staph lugdunensis Not Reported Not Detected (NotDetected); Staph spp. Not Reported Not Detected (NotDetected); Staphaureus Not Reported Not Detected (NotDetected); Staphepi Not Reported Not Detected (NotDetected); Stenmaltophilia Not Reported Not Detected (NotDetected); Strep agal(GrpB) Not Reported Not Detected (NotDetected); Strep pneum Not Reported Not Detected (NotDetected); Strep pyog (GrpA) Not Reported Not Detected (NotDetected); Strep spp Not Reported Not Detected (NotDetected); VIM Resistant Gene Not Detected (NotDetected); mcr-1 Colistin Resistant Gene Not Detected (NotDetected)
--- NOTE | 2021-12-06 12:55 | Hospitalist Progress Note ---
Date of Service December 06, 2021 Assessment & Plan (1) Hydronephrosis with urinary obstruction due to ureteral calculus: (2) Recurrent kidney stones: (3) Complicated UTI (urinary tract infection): (4) Acute kidney injury: (5) Diabetes mellitus, type 2: (6) HTN (hypertension): (7) Transient ischemic attack (TIA): (8) Dyslipidemia: Plan 66yo F with a PMH of DM II, HTN, dyslipidemia, history of kidney stones and other medical problems listed below who presented 12/05 with flank pain, nausea and vomiting over the past 2 days [employer]ERAL GREETER and was found to have severe sepsis and acute renal failure in setting of obstructing ureteral stone. Severe sepsis POA/ lactic acidosis Obstructing ureteral stone Complicated UTI Recurrent kidney stones At presentation, Initially hypotensive 87/57 but volume resuscitated with 2.5 L NSS per sepsis protocol - BP improved to 115/79; tachycardic with leukocytosis, lactic acidosis and complicated UTI conforming to severe sepsis POA. Admitting CT abd/pelvis with 6 mm obstructing calculus at the left ves icoureteral junction. This causes mild to moderate left hydroureteronephrosis Status post emergent left ureteral stent placement 12/05. Admitting UA abnormal, urine and blood cultures pending, preliminary gram- negative bacilli on urine and blood culture. Repeat blood culture. 12/05 cefepime ---> ceftriaxone 12/06, continue with IV fluids, patient with poor p.o. intake. Pt will need f/u w/ Uro upon DC. Acute renal failure, likely postrenal Admitting Cr 4.24, Cr 0.8 at baseline. In setting of obstructing stone, also likely pre-renal component given N/V and poor PO intake Hold HCTZ, continue with IV fluids, patient is status post left ureteral stent, expect to improve with improving diet/fluid resuscitation. Type 2 diabetes A1c 7.2 in August 2021 Hold home agents SSI while in-patient BSG AC HS Hypertension Holding hctz 2/2 ARF Patient currently with soft blood pressure, continue to monitor. History of TIA Remote h/o TIA 10-15 years ago. On aspirin and statin Dyslipidemia Continue statin DVT Ppx: SCDs Code status: FULL PCP: Melo Dispo: In ICU Care Admission and Anticipated Discharge Date Admission Date: December 05, 2021 Subjective Patient seen and examined at bedside as a follow-up of severe sepsis, obstructive ureteral stone and complicated UTI. Patient was lying in bed, on room air, was sleeping, had 2 large loose stools, is eating little, per RN diarrhea movements x2 overnight, patient has not required any pressors and is running soft blood pressure, patient is status post IV fluid resuscitation and undergoing IV fluid resus. Patient denies any headache or dizziness or sore throat or cough or chest pain or palpitation or feverish feeling or belly pain. Afebrile since overnight. Patient feels weak and tired. Physical Exam Physical Exam: GENERAL: Alert and oriented x3. NAD, on RA. Appears weak/ill. HEENT: No pallor, no icterus. Pupils equal, round and reactive to light. Oral mucosa moist. NECK: No JVD, no neck masses. HEART: S1 and S2 heard. tachycardic. No murmur, no gallop. RESPIRATORY SYSTEM: Normal AP diameter. No accessory muscle use. No wheezing, no crackles. ABDOMEN: Soft, bowel sounds present, nontender, no distention. CENTRAL NERVOUS SYSTEM: No facial droop. Speech is clear. Obeys simple commands. Moves extremities. EXTREMITIES: No edema, no erythema seen. UC w/ yellow urine in bag noted. Results & Data Results & Data ([facility]) Vital Signs (Past 12 Hours) Vital Signs Temp Pulse Resp BP Pulse Ox O2 Del Method O2 Flow Rate 12/06/21 08:00 36.7 C 12/06/21 11:00 101 H 22 93 Room Air 12/06/21 11:00 99/61 L 12/06/21 10:30 99 H 19 95 12/06/21 10:00 101 H 18 96 12/06/21 10:00 98/67 L 12/06/21 09:44 104 H 22 93 12/06/21 09:44 102/58 L 12/06/21 09:30 104 H 22 91 12/06/21 09:05 112 H 28 H 91 12/06/21 11:41 36.6 C 12/06/21 08:30 106 H 22 92 12/06/21 08:01 112 H 14 92 Room Air 12/06/21 08:01 89/63 L 12/06/21 07:00 108 H 17 95 Nasal Cannula 2 12/06/21 07:00 112/62 12/06/21 06:30 106 H 25 H 91 12/06/21 06:00 107 H 24 94 12/06/21 06:00 90/50 L 12/06/21 05:30 107 H 22 96 12/06/21 08:35 Room Air 12/06/21 05:00 107 H 24 12/06/21 04:03 103/54 L 12/06/21 04:03 108 H 24 90 2 12/06/21 04:00 109 H 22 96 12/06/21 03:47 111 H 24 93 2 12/06/21 03:47 103/54 L 12/06/21 03:05 108 H 23 97 2 12/06/21 03:05 96/60 L 12/06/21 03:00 109 H 22 97 12/06/21 03:52 37.3 C 12/06/21 02:00 112 H 16 95 2 12/06/21 02:00 109/60 12/06/21 01:03 83/68 L 12/06/21 01:03 113 H 22 12/06/21 01:01 112 H 24 95 12/06/21 01:00 113 H 26 H 94
[2021-12-06] MEDS: cefTRIAXone SODIUM 2,000 MG in DEXTROSE 5% 50 ML IV SCH (13:48)
[2021-12-06] MEDS ORDERED: CEFEPIME 1,000 MG in SYRINGE 0 ML IV SCH (14:00)
[2021-12-06 16:16] LABS: BUN Creatinine Ratio 17.5 (10-20); Calcium 7.2 mg/dl (8.5-10.1); Creatinine Clr Calc Pharmacy 14.2 ml/min; Est GFR (African American) 12.7 ml/min; Magnesium 2.1 mg/dl (1.7-2.4); Phosphorus 3.4 mg/dl (2.5-4.9); Potassium 3.2 mmol/L (3.5-5.1)
[2021-12-06] MEDS ORDERED: CALCIUM GLUCONATE 10% 1,000 MG in DEXTROSE 5% 50 ML IV ONE (16:17)
[2021-12-06] MEDS ORDERED: POTASSIUM CHLORIDE CRTAB 20 MEQ TABCR PO STA (16:17)
[2021-12-06] MEDS ORDERED: STAT IV STA (16:17)
[2021-12-06] MEDS ORDERED: LACTATED RINGER'S 1,000 ML IV ONE (20:43)
[2021-12-06] MEDS ORDERED: POTASSIUM CHLORIDE PWD 20 MEQ PACK PO STA (21:24)
[2021-12-06] MEDS ORDERED: oxyCODONE HCL IR 5 MG TAB (IMMEDIATE RELEASE) PO PRN (22:53)
[2021-12-06] MEDS ORDERED: HYDROmorphone INJ 0.5 MG/0.5 ML SYR IV PRN (22:53)
[2021-12-06] MEDS ORDERED: LACTATED RINGER'S 1,000 ML IV SCH (23:00)
[2021-12-06] MEDS ORDERED: ACETAMINOPHEN 325 MG TAB ONE (23:55)
--- NOTE | 2021-12-07 00:34 | Communication Note ---
Date of Service: December 07, 2021 Made aware by RN of hand and scleral edema. AP Third spacing IV albumin in place of crystalloid for IVF
[2021-12-07 00:38] LABS: Base Excess VBG -2.1 mEq/L; HCO3 VBG 21 mmol/L; PCO2 VBG 31 mmHg (38-50); PO2 VBG 49 mmHg; pH VBG 7.44 (7.36-7.41)
[2021-12-07 01:25] LABS: Calcium 7.7 mg/dl (8.5-10.1); Creatinine Clr Calc Pharmacy 14.8 ml/min; Est GFR (African American) 13.3 ml/min; Est GFR (Non-African American) 11.5 ml/min; Potassium 2.8 mmol/L (3.5-5.1)
[2021-12-07] MEDS: ACETAMINOPHEN 325 MG TAB PO PRN (01:29)
[2021-12-07] MEDS ORDERED: POTASSIUM CHLORIDE PWD 20 MEQ PACK PO STA (01:45)
[2021-12-07] MEDS: ALBUMIN 25% 100 mL 25 GM/100 ML VIAL IV SCH ×4 (01:46→16:37)
[2021-12-07] MEDS: DEXTROSE 5% 1,000 ML IV SCH (04:22)
[2021-12-07] MEDS ORDERED: POTASSIUM CHLORIDE PWD 20 MEQ PACK PO ONE (04:30)
[2021-12-07] MEDS: POTASSIUM CHLORIDE / WTR 10 MEQ/100 ML PLCT IV SCH ×6 (06:05→13:42)
--- NOTE | 2021-12-07 07:20 | Ultrasound Report ---
US venous doppler LE BI CLINICAL HISTORY: leg cramps TECHNIQUE: Bilateral lower extremity real-time compression venous ultrasound with Color Doppler imagi ng. Utilizing real-time ultrasonic imaging multiple real time high-resolution ultrasonic images with compression and noncompression maneuvers of the deep venous system in addition to color doppler imagi ng were performed from the common femoral vein through the proximal calf veins. COMPARISON: None available at the time of this dictation. FINDINGS: Currently there is normal compressibility of the deep venous system from the common femoral vein thro ugh the proximal calf veins. Left popliteal fossa fluid collection is seen compatible with popliteal cyst. Impression: No evidence of deep venous thrombus. ACT 112: Negative or not required by law. Electronically signed by: Cb Hunter M.D. 12/07/2021 7:19 AM
[2021-12-07] MEDS: ATORVASTATIN 10 MG TAB PO SCH (07:28)
[2021-12-07] MEDS: EZETIMIBE 10 MG TABLET PO SCH (07:28)
[2021-12-07] MEDS: ASPIRIN 81 MG CHEW PO SCH (07:29)
[2021-12-07] MEDS: INSULIN ASPART PER UNIT SC SCH ×4 (08:16→20:06)
[2021-12-07 08:31] LABS: BUN Creatinine Ratio 17.5 (10-20); Calcium 8.4 mg/dl (8.5-10.1); Creatinine Clr Calc Pharmacy 15.6 ml/min; Est GFR (African American) 13.8 ml/min; Est GFR (Non-African American) 11.9 ml/min; Magnesium 2.2 mg/dl (1.7-2.4); Phosphorus 2.5 mg/dl (2.5-4.9); Potassium 3.4 mmol/L (3.5-5.1)
[2021-12-07] MEDS ORDERED: ATORVASTATIN 10 MG TAB PO SCH (09:00)
[2021-12-07 09:10] LABS: Basophils # (auto) 0.08 K/uL (0-0.2); Basophils % (auto) 0.5 %; Echinocytes 2+; Eosinophils # (auto) 0.12 K/uL (0-0.50); Eosinophils % (auto) 0.7 %; Hematocrit (blood only) 29.9 % (34.1-44.9); Hemoglobin 10.7 g/dl (12.0-16.0); Immature Granulocytes # (auto) 0.29 K/uL (0.00-0.02); Immature Granulocytes % (auto) 1.8 %; Lymphocytes # (auto) 0.99 K/uL (1.2-3.4); Mean Corpuscular Hemoglobin 28.2 pg (25.0-34.0); Mean Corpuscular Hgb Conc 35.8 g/dL (32.0-36.0); Mean Corpuscular Volume 78.9 fL (80.0-100.0); Mean Platelet Volume 12.1 fL (9.4-12.3); Monocytes % (auto) 4.8 %; Neutrophils # (auto) 14.22 K/uL (1.4-6.5); Neutrophils % (auto) 86.2 %; Platelet Count 38 K/uL (130-400); RDW Coefficient of Variation 13.2 % (11.5-14.5); RDW Standard Deviation 37.7 fL (36.4-46.3); Red Blood Count 3.79 M/uL (3.93-5.22)
[2021-12-07] MEDS: ONDANSETRON INJ 2 MG/ML 2 ML VIAL IV PRN ×2 (10:14→14:20)
[2021-12-07] MEDS: cefTRIAXone SODIUM 2,000 MG in DEXTROSE 5% 50 ML IV SCH (13:38)
[2021-12-07] MEDS ORDERED: Nursing to Pharmacy Communication SCH (13:45)
[2021-12-07 14:56] LABS: Estimated Average Glucose 171 mg/dl; Hemoglobin A1C 7.6 % (4.5-5.6)
--- NOTE | 2021-12-07 15:30 | Hospitalist Progress Note ---
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 Severe sepsis POA/ lactic acidosis Obstructing ureteral stone Complicated UTI Recurrent kidney stones At presentation, was initially hypotensive 87/57 but volume resuscitated with 2.5 L NSS per sepsis protocol - BP improved to 115/79 Was tachycardic with leukocytosis, lactic acidosis and complicated UTI conforming to severe sepsis POA. Admitting CT abd/pelvis with 6 mm obstructing calculus at the left vesicoure teral junction. This causes mild to moderate left hydroureteronephrosis Status post emergent left ureteral stent placement 12/05. Admitting UA abnormal Urine culture grew E coli, lactobacillus spp Blood culture from 12/05 grew GNR in one bottle Repeat blood cultures pending 12/05 cefepime ---> ceftriaxone 12/06 Currently on ceftriaxone Continue IVF until po intake improves Acute renal failure Admitting Cr 4.24, Cr 0.8 at baseline. In setting of obstructing stone, also likely pre-renal component given N/V and poor PO intake Continue to hold HCTZ Continue with IV fluids Patient is status post left ureteral stent Hypokalemia today. Replete and monitor Type 2 diabetes A1c 7.2 in August 2021 Hold home agents SSI while in-patient BSG AC HS Hypertension Holding hctz 2/2 ARF BP stable Continue to monitor. History of TIA Remote h/o TIA 10-15 years ago. On aspirin and statin Dyslipidemia Continue statin DVT Ppx: SCDs Code status: FULL PCP: Melo Nunez PT/OT eval Admission and Anticipated Discharge Date Admission Date: December 05, 2021 Subjective Patient seen and examined. Continues to report weakness. Reports occasional dizziness with activity Nausea and some bladder discomfort associated with that. Reported some loose stool this morning. Denies vomiting. Continues to have poor appetite. Denies chest pain, cough, shortness of breath Denies fevers or chills Physical Exam Constitutional: + well hydrated; no acute distress Eyes: PERRL, conjunctivae normal, anicteric sclerae ENMT: external ear and nose normal, oropharynx normal Respiratory: normal respiratory effort, lungs clear to auscultation Cardiovascular: Rate/Rhythm: regular rate and regular rhythm S1 S2 Gastrointestinal (Abdomen): normal bowel sounds, soft, nontender, no hepatosplenomegaly Musculoskeletal: No pedal edema Neurologic: PERRL, EOMI, accommodation nl, no face palsy, no dysarthria Psychiatric: A+Ox3, euthymic affect Genitourinary: [place] in situ Results & Data Results & Data ([facility]) Vital Signs (Past 12 Hours) Vital Signs Temp Pulse Pulse Resp BP Pulse Ox O2 Del Method 12/07/21 11:35 36.8 C 102 H 20 131/76 95 Room Air 12/07/21 08:00 94 H 12/07/21 08:00 Room Air 12/07/21 08:14 36.4 C L 93 H 19 128/81 95 Room Air 12/07/21 04:05 36.4 C L 103 H 18 114/70 92 Room Air 12/07/21 05:06 104 H Laboratory Results Abnormal lab results 12/06/21 12/06/21 12/07/21 Range/Units 15:30 15:30 00:14 WBC (4.8-10.8) K/ul RBC (3.93-5.22) M/uL Hgb (12.0-16.0) g/dl Hct (34.1-44.9) % MCV (80.0-100.0) fL Plt Count (130-400) K/uL Neut # (Auto) (1.4-6.5) K/uL Lymph # (Auto) (1.2-3.4) K/uL Immature Gran # (Auto) (0.00-0.02) K/uL VBG pH (7.36-7.41) VBG pCO2 (38-50) mmHg Sodium 135 L (136-145) mmol/L Potassium 3.2 L 2.8 L (3.5-5.1) mmol/L Carbon Dioxide 19 L 20 L (21-32) mmol/L Anion Gap 14 H 13 H (3-11) BUN 71 H 66 H (6-23) mg/dl Creatinine 4.05 H 3.89 H (0.6-1.2) mg/dl Glucose 107 H 51 L* (70-99(Fasting)) mg/dl POC Glucose (70-99) mg/dl Hemoglobin A1c 7.6 H (4.5-5.6) % Calcium 7.2 L 7.7 L (8.5-10.1) mg/dl 12/07/21 12/07/21 12/07/21 Range/Units 00:14 02:20 03:59 WBC (4.8-10.8) K/ul RBC (3.93-5.22) M/uL Hgb (12.0-16.0) g/dl Hct (34.1-44.9) % MCV (80.0-100.0) fL Plt Count (130-400) K/uL Neut # (Auto) (1.4-6.5) K/uL Lymph # (Auto) (1.2-3.4) K/uL Immature Gran # (Auto) (0.00-0.02) K/uL VBG pH 7.44 H (7.36-7.41) VBG pCO2 31 L (38-50) mmHg Sodium (136-145) mmol/L Potassium (3.5-5.1) mmol/L Carbon Dioxide (21-32) mmol/L Anion Gap (3-11) BUN (6-23) mg/dl Creatinine (0.6-1.2) mg/dl Glucose (70-99(Fasting)) mg/dl POC Glucose 68 L* 152 H (70-99) mg/dl Hemoglobin A1c (4.5-5.6) % Calcium (8.5-10.1) mg/dl 12/07/21 12/07/21 12/07/21 Range/Units 07:22 07:22 07:41 WBC 16.50 H (4.8-10.8) K/ul RBC 3.79 L (3.93-5.22) M/uL Hgb 10.7 L (12.0-16.0) g/dl Hct 29.9 L (34.1-44.9) % MCV 78.9 L (80.0-100.0) fL Plt Count 38 L (130-400) K/uL Neut # (Auto) 14.22 H (1.4-6.5) K/uL Lymph # (Auto) 0.99 L (1.2-3.4) K/uL Immature Gran # (Auto) 0.29 H (0.00-0.02) K/uL VBG pH (7.36-7.41) VBG pCO2 (38-50) mmHg Sodium 135 L (136-145) mmol/L Potassium 3.4 L D (3.5-5.1) mmol/L Carbon Dioxide 20 L (21-32) mmol/L Anion Gap (3-11) BUN 66 H (6-23) mg/dl Creatinine 3.78 H (0.6-1.2) mg/dl Glucose 100 H (70-99(Fasting)) mg/dl POC Glucose 103 H (70-99) mg/dl Hemoglobin A1c (4.5-5.6) % Calcium 8.4 L (8.5-10.1) mg/dl
[2021-12-07] MEDS ORDERED: PROMETHAZINE HCL 12.5 MG in SODIUM CHLORIDE 0.9% 50 ML IV STA (15:31)
[2021-12-08] MEDS: ALBUMIN 25% 100 mL 25 GM/100 ML VIAL IV SCH ×3 (00:50→16:46)
[2021-12-08] MEDS: DEXTROSE 5% 1,000 ML IV SCH (00:51)
[2021-12-08 06:42] LABS: BUN Creatinine Ratio 18.8 (10-20); Calcium 8.8 mg/dl (8.5-10.1); Creatinine Clr Calc Pharmacy 17.4 ml/min; Est GFR (African American) 16.3 ml/min; Hematocrit (blood only) 28.1 % (34.1-44.9); Magnesium 2.1 mg/dl (1.7-2.4); Mean Corpuscular Hemoglobin 28.2 pg (25.0-34.0); Mean Corpuscular Hgb Conc 35.6 g/dL (32.0-36.0); Mean Corpuscular Volume 79.4 fL (80.0-100.0); Mean Platelet Volume 12.3 fL (9.4-12.3); Platelet Count 50 K/uL (130-400); Potassium 3.2 mmol/L (3.5-5.1); RDW Coefficient of Variation 13.3 % (11.5-14.5); RDW Standard Deviation 38.5 fL (36.4-46.3); Red Blood Count 3.54 M/uL (3.93-5.22); White Blood Count 20.59 K/ul (4.8-10.8)
[2021-12-08] MEDS: EZETIMIBE 10 MG TABLET PO SCH (07:58)
[2021-12-08] MEDS: ASPIRIN 81 MG CHEW PO SCH (07:59)
[2021-12-08] MEDS: ATORVASTATIN 10 MG TAB PO SCH (07:59)
[2021-12-08] MEDS ORDERED: POTASSIUM PHOS 3 MMOL/1 ML INFUSION IV STA (08:03)
[2021-12-08 08:16] LABS: Basophils % (auto) 0.5 %; Dohle Bodies 2+; Eosinophils # (auto) 0.31 K/uL (0-0.50); Eosinophils % (auto) 1.5 %; Immature Granulocytes # (auto) 0.45 K/uL (0.00-0.02); Immature Granulocytes % (auto) 2.2 %; Lymphocytes # (auto) 1.69 K/uL (1.2-3.4); Lymphocytes % (auto) 8.2 %; Monocytes # (auto) 1.58 K/uL (0.24-0.82); Monocytes % (auto) 7.7 %; Neutrophils # (auto) 16.46 K/uL (1.4-6.5); Neutrophils % (auto) 79.9 %
[2021-12-08] MEDS: INSULIN ASPART PER UNIT SC SCH ×4 (08:31→20:35)
[2021-12-08] MEDS ORDERED: POTASSIUM PHOSPHATE 30 MMOL in SODIUM CHLORIDE 0.9% 500 ML IV ONE (09:00)
[2021-12-08] MEDS: cefTRIAXone SODIUM 2,000 MG in DEXTROSE 5% 50 ML IV SCH (14:16)
--- NOTE | 2021-12-08 15:54 | Hospitalist Progress Note ---
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 Severe sepsis POA/ lactic acidosis Obstructing ureteral stone Complicated UTI Recurrent kidney stones At presentation, was initially hypotensive 87/57 but volume resuscitated with 2.5 L NSS per sepsis protocol - BP improved to 115/79 Was tachycardic with leukocytosis, lactic acidosis and complicated UTI conforming to severe sepsis POA. Admitting CT abd/pelvis with 6 mm obstructing calculus at the left vesicoure teral junction. This causes mild to moderate left hydroureteronephrosis Status post emergent left ureteral stent placement 12/05. Admitting UA abnormal Urine culture grew E coli, lactobacillus spp Blood culture from 12/05 grew GNR in one bottle Worsening leukocytosis but improving symptoms. Monitor Repeat blood cultures negative so far 12/05 cefepime ---> ceftriaxone 12/06 Currently on ceftriaxone Continue IVF D5 until po intake improves. Had hypoglycemic episodes some days ago Acute renal failure Admitting Cr 4.24, Cr 0.8 at baseline. In setting of obstructing stone, also likely pre-renal component given N/V and poor PO intake Continue to hold HCTZ Continue with IV fluids Patient is status post left ureteral stent Hypokalemia and hypophosphatemia today. Replete and monitor Type 2 diabetes A1c 7.2 in August 2021 Hold home agents SSI while in-patient. Has not received any for sometime due to hypoglycemic episodes from poor oral intake BSG AC HS Hypertension Holding hctz 2/2 ARF BP stable Continue to monitor. History of TIA Remote h/o TIA 10-15 years ago. On aspirin and statin Dyslipidemia Continue statin DVT Ppx: SCDs. Thrombocytopenia Code status: FULL PCP: Melo PT/OT petar noted Admission and Anticipated Discharge Date Admission Date: December 05, 2021 Subjective Patient seen and examined. Reports weakness is mildly improving Nausea is completely resolved Denied abd pain Reported one episode of loose stool today Reports anorexia is gradually improving Denies chest pain, cough, shortness of breath Denies fevers or chills Physical Exam Constitutional: + well hydrated; no acute distress Eyes: PERRL, conjunctivae normal, anicteric sclerae ENMT: external ear and nose normal, oropharynx normal Respiratory: normal respiratory effort, lungs clear to auscultation Cardiovascular: Rate/Rhythm: regular rate and regular rhythm S1 S2 Gastrointestinal (Abdomen): normal bowel sounds, soft, nontender, no hepatosplenomegaly Musculoskeletal: No pedal edema Neurologic: PERRL, EOMI, accommodation nl, no face palsy, no dysarthria Psychiatric: A+Ox3, euthymic affect Results & Data Results & Data ([facility]) Vital Signs (Past 12 Hours) Vital Signs Temp Pulse Resp BP Pulse Ox O2 Del Method 12/08/21 11:41 36.9 C 83 18 133/78 96 Room Air 12/08/21 08:00 Room Air 12/08/21 08:19 36.6 C 92 H 19 146/75 H 93 Room Air 12/08/21 04:07 36.8 C 86 20 126/75 93 Room Air Laboratory Results Abnormal lab results 12/07/21 12/08/21 12/08/21 Range/Units 16:45 06:00 06:00 WBC 20.59 H (4.8-10.8) K/ul RBC 3.54 L (3.93-5.22) M/uL Hgb 10.0 L (12.0-16.0) g/dl Hct 28.1 L (34.1-44.9) % MCV 79.4 L (80.0-100.0) fL Plt Count 50 L (130-400) K/uL Neut # (Auto) 16.46 H (1.4-6.5) K/uL [place] # (Auto) 1.58 H (0.24-0.82) K/uL Immature Gran # (Auto) 0.45 H (0.00-0.02) K/uL Potassium 3.2 L (3.5-5.1) mmol/L Chloride 109 H (98-107) mmol/L BUN 62 H (6-23) mg/dl Creatinine 3.30 H D (0.6-1.2) mg/dl POC Glucose 109 H (70-99) mg/dl Phosphorus 2.0 L (2.5-4.9) mg/dl 12/08/21 Range/Units 11:53 WBC (4.8-10.8) K/ul RBC (3.93-5.22) M/uL Hgb (12.0-16.0) g/dl Hct (34.1-44.9) % MCV (80.0-100.0) fL Plt Count (130-400) K/uL Neut # (Auto) (1.4-6.5) K/uL [place] # (Auto) (0.24-0.82) K/uL Immature Gran # (Auto) (0.00-0.02) K/uL Potassium (3.5-5.1) mmol/L Chloride (98-107) mmol/L BUN (6-23) mg/dl Creatinine (0.6-1.2) mg/dl POC Glucose 104 H (70-99) mg/dl Phosphorus (2.5-4.9) mg/dl
[2021-12-08 17:06] LABS: BUN Creatinine Ratio 22.5 (10-20); Calcium 8.9 mg/dl (8.5-10.1); Creatinine Clr Calc Pharmacy 21.2 ml/min; Est GFR (African American) 20.7 ml/min; Est GFR (Non-African American) 17.8 ml/min
[2021-12-09] MEDS: ALBUMIN 25% 100 mL 25 GM/100 ML VIAL IV SCH ×3 (00:18→17:53)
[2021-12-09] MEDS: DEXTROSE 5% 1,000 ML IV SCH ×2 (03:49→09:31)
[2021-12-09 08:20] LABS: Albumin Globulin Ratio 1.5 (0.9-2); Albumin Level 3.8 gm/dl (3.4-5.0); BUN Creatinine Ratio 24.9 (10-20); Bilirubin,Total 0.9 mg/dl (0.2-1.0); C Reactive Protein 8.25 mg/dl (0-0.5); Calcium 9.1 mg/dl (8.5-10.1); Creatinine Clr Calc Pharmacy 24.5 ml/min; Est GFR (African American) 24.3 ml/min; Globulin 2.5 gm/dl (2.5-4.0); Phosphorus 3.4 mg/dl (2.5-4.9); Potassium 3.4 mmol/L (3.5-5.1); Total Protein 6.3 gm/dl (6.0-8.3)
[2021-12-09] MEDS: INSULIN ASPART PER UNIT SC SCH ×4 (08:30→22:00)
[2021-12-09] MEDS: ACETAMINOPHEN 325 MG TAB PO PRN ×2 (08:41→20:51)
[2021-12-09] MEDS: ASPIRIN 81 MG CHEW PO SCH (08:41)
[2021-12-09] MEDS: ATORVASTATIN 10 MG TAB PO SCH (09:31)
[2021-12-09] MEDS: EZETIMIBE 10 MG TABLET PO SCH (09:31)
[2021-12-09] MEDS ORDERED: POTASSIUM CHLORIDE CRTAB 20 MEQ TABCR PO STA (09:39)
[2021-12-09 09:52] LABS: Hematocrit (blood only) 31.7 % (34.1-44.9); Mean Corpuscular Hemoglobin 28.3 pg (25.0-34.0); Mean Corpuscular Hgb Conc 34.7 g/dL (32.0-36.0); Mean Corpuscular Volume 81.5 fL (80.0-100.0); Mean Platelet Volume 11.4 fL (9.4-12.3); Platelet Count 77 K/uL (130-400); RDW Coefficient of Variation 13.9 % (11.5-14.5); RDW Standard Deviation 41.1 fL (36.4-46.3); Red Blood Count 3.89 M/uL (3.93-5.22)
[2021-12-09] MEDS: cefTRIAXone SODIUM 2,000 MG in DEXTROSE 5% 50 ML IV SCH (13:01)
--- NOTE | 2021-12-09 13:25 | Hospitalist Progress Note ---
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 Severe sepsis POA/ lactic acidosis Obstructing ureteral stone Complicated UTI Recurrent kidney stones At presentation, was initially hypotensive 87/57 but volume resuscitated with 2.5 L NSS per sepsis protocol - BP improved to 115/79 Was tachycardic with leukocytosis, lactic acidosis and complicated UTI conforming to severe sepsis POA. Admitting CT abd/pelvis with 6 mm obstructing calculus at the left vesicoureter al junction. This causes mild to moderate left hydroureteronephrosis Status post emergent left ureteral stent placement 12/05. Admitting UA abnormal Urine culture grew E coli, lactobacillus spp Blood culture from 12/05 grew GNR in one bottle Worsening leukocytosis but improving symptoms. Get peripheral smear Repeat blood cultures negative so far 12/05 cefepime ---> ceftriaxone 12/06 Currently on ceftriaxone Continue IVF D5 at 40cc/h for today. Will reassess tomorrow0 Had hypoglycemic episodes some days ago Acute renal failure Admitting Cr 4.24, Cr 0.8 at baseline. In setting of obstructing stone, also likely pre-renal component given N/V and poor PO intake Continue to hold HCTZ Patient is status post left ureteral stent Hypokalemia today. Replete and monitor Type 2 diabetes A1c 7.2 in August 2021 Hold home agents SSI while in-patient. BSG AC HS Hypertension Holding hctz 2/2 ARF BP stable Continue to monitor. History of TIA Remote h/o TIA 10-15 years ago. On aspirin and statin Dyslipidemia Continue statin DVT Ppx: SCDs. Thrombocytopenia Code status: FULL PCP: Melo PT/OT petar noted Admission and Anticipated Discharge Date Admission Date: December 05, 2021 Subjective Patient seen and examined. Sitting on side of bed Reports generalized weakness continue to improve Denies nausea, vomiting, abd pain Appetite continues to improve Denies chest pain, cough, shortness of breath Denies fevers or chill Physical Exam Constitutional: + well hydrated; no acute distress Eyes: PERRL, Right conjunctival mildly inflamed (denied pain/foreign sensation) ENMT: external ear and nose normal, oropharynx normal Respiratory: normal respiratory effort, lungs clear to auscultation Cardiovascular: Rate/Rhythm: regular rate and regular rhythm S1 S2 Gastrointestinal (Abdomen): normal bowel sounds, soft, nontender, no hepatosp lenomegaly Neurologic: PERRL, EOMI, accommodation nl, no face palsy, no dysarthria Psychiatric: A+Ox3, euthymic affect Results & Data Results & Data ([facility]) Vital Signs (Past 12 Hours) Vital Signs Temp Pulse Pulse Pulse Resp BP BP 12/09/21 12:00 36.8 C 74 18 164/81 H 12/09/21 11:27 85 12/09/21 07:59 36.8 C 82 20 151/69 H 12/09/21 03:27 37.0 C 89 18 144/78 H Pulse Ox O2 Del Method 12/09/21 12:00 97 Room Air 12/09/21 11:27 12/09/21 07:59 98 Room Air 12/09/21 03:27 95 Room Air Laboratory Results Abnormal lab results 12/08/21 12/08/21 12/08/21 Range/Units 16:25 16:38 20:10 WBC (4.8-10.8) K/ul RBC (3.93-5.22) M/uL Hgb (12.0-16.0) g/dl Hct (34.1-44.9) % Plt Count (130-400) K/uL Potassium (3.5-5.1) mmol/L Chloride 108 H (98-107) mmol/L Carbon Dioxide 19 L (21-32) mmol/L BUN 61 H (6-23) mg/dl Creatinine 2.71 H D (0.6-1.2) mg/dl BUN/Creatinine Ratio 22.5 H (10-20) Glucose 158 H (70-99(Fasting)) mg/dl POC Glucose 143 H 133 H (70-99) mg/dl Alkaline Phosphatase (34-104) U/L C-Reactive Protein (0-0.5) mg/dl 12/09/21 12/09/21 12/09/21 Range/Units 06:59 07:33 09:09 WBC 22.80 H (4.8-10.8) K/ul RBC 3.89 L (3.93-5.22) M/uL Hgb 11.0 L (12.0-16.0) g/dl Hct 31.7 L (34.1-44.9) % Plt Count 77 L D (130-400) K/uL Potassium 3.4 L (3.5-5.1) mmol/L Chloride (98-107) mmol/L Carbon Dioxide (21-32) mmol/L BUN 59 H (6-23) mg/dl Creatinine 2.37 H D (0.6-1.2) mg/dl BUN/Creatinine Ratio 24.9 H (10-20) Glucose 158 H (70-99(Fasting)) mg/dl POC Glucose 158 H (70-99) mg/dl Alkaline Phosphatase 119 H (34-104) U/L C-Reactive Protein 8.25 H (0-0.5) mg/dl 12/09/21 Range/Units 11:56 WBC (4.8-10.8) K/ul RBC (3.93-5.22) M/uL Hgb (12.0-16.0) g/dl Hct (34.1-44.9) % Plt Count (130-400) K/uL Potassium (3.5-5.1) mmol/L Chloride (98-107) mmol/L Carbon Dioxide (21-32) mmol/L BUN (6-23) mg/dl Creatinine (0.6-1.2) mg/dl BUN/Creatinine Ratio (10-20) Glucose (70-99(Fasting)) mg/dl POC Glucose 148 H (70-99) mg/dl Alkaline Phosphatase (34-104) U/L C-Reactive Protein (0-0.5) mg/dl
[2021-12-09] MEDS ORDERED: NITROGLYCERIN SL 0.4 MG/TAB TAB SL STA (21:14)
[2021-12-09] MEDS ORDERED: ALUMINUM/MAGNESIUM/SIMETH (MAALOX MAX) 30 ML UDC PO STA (21:14)
--- NOTE | 2021-12-10 07:15 | Electrocardiogram Report ---
Test Reason : Blood Pressure : / mmHG Vent. Rate : 084 BPM Atrial Rate : 084 BPM P-R Int : 202 ms QRS Dur : 092 ms QT Int : 376 ms P-R-T Axes : 058 -15 048 degrees QTc Int : 444 ms Normal sinus rhythm Nonspecific ST abnormality Abnormal ECG When compared with ECG of 05-DEC-2021 11:45, No significant change was found Confirmed by Rafa Lima ([id number]) on 12/10/2021 7:15:06 AM Referred By: REFERRED SELF Confirmed By:Lucius Lima
[2021-12-10 07:16] LABS: Hematocrit (blood only) 31.1 % (34.1-44.9); Hemoglobin 10.8 g/dl (12.0-16.0); Mean Corpuscular Hemoglobin 28.3 pg (25.0-34.0); Mean Corpuscular Hgb Conc 34.7 g/dL (32.0-36.0); Mean Corpuscular Volume 81.4 fL (80.0-100.0); Mean Platelet Volume 11.4 fL (9.4-12.3); Platelet Count 105 K/uL (130-400); Platelet Estimate Decreased (Normal); RDW Standard Deviation 40.9 fL (36.4-46.3); Red Blood Count 3.82 M/uL (3.93-5.22); White Blood Count 17.64 K/ul (4.8-10.8)
[2021-12-10 07:18] LABS: BUN Creatinine Ratio 33.7 (10-20); Calcium 9.4 mg/dl (8.5-10.1); Creatinine Clr Calc Pharmacy 34.1 ml/min; Est GFR (African American) 38.2 ml/min; Potassium 3.5 mmol/L (3.5-5.1)
[2021-12-10 07:43] LABS: Troponin I High Sensitivity 19.9 pg/ml (0-14)
[2021-12-10] MEDS: INSULIN ASPART PER UNIT SC SCH ×4 (08:30→20:49)
[2021-12-10] MEDS: EZETIMIBE 10 MG TABLET PO SCH (09:16)
[2021-12-10] MEDS: ASPIRIN 81 MG CHEW PO SCH (09:16)
[2021-12-10] MEDS: ATORVASTATIN 10 MG TAB PO SCH (09:16)
[2021-12-10] MEDS: ACYCLOVIR 5% OINT 15 GM TUBE EXT SCH ×2 (11:30→20:51)
--- NOTE | 2021-12-10 11:47 | Hospitalist Progress Note ---
Date of Service December 10, 2021 Assessment & Plan (1) Hydronephrosis with urinary obstruction due to ureteral calculus: (2) Recurrent kidney stones: (3) Complicated UTI (urinary tract infection): (4) Acute kidney injury: (5) Diabetes mellitus, type 2: (6) HTN (hypertension): (7) Transient ischemic attack (TIA): (8) Dyslipidemia: Plan 66yo F with a PMH of DM II, HTN, dyslipidemia, history of kidney stones and other medical problems listed below who presented 12/05 with flank pain, nausea and vomiting over the past 2 days [employer] and was found to have severe sepsis and acute renal failure in setting of obstructing ureteral stone. Severe sepsis POA/ lactic acidosis Obstructing ureteral stone Complicated UTI Recurrent kidney stones At presentation, was initially hypotensive 87/57 but volume resuscitated with 2.5 L NSS per sepsis protocol - BP improved to 115/79 Was tachycardic with leukocytosis, lactic acidosis and complicated UTI conforming to severe sepsis POA. Admitting CT abd/pelvis with 6 mm obstructing calculus at the left vesicoureter al junction. This causes mild to moderate left hydroureteronephrosis Status post emergent left ureteral stent placement 12/05. Admitting UA abnormal Urine culture grew E coli, lactobacillus spp Blood culture from 12/05 grew E coli Leukocytosis improved today compared to yesterday Repeat blood cultures negative so far 12/05 cefepime ---> ceftriaxone 12/06 Currently on ceftriaxone Will deescalate to po on discharge to complete 2 weeks antibiotic therapy Acute renal failure Admitting Cr 4.24, Cr 0.8 at baseline. In setting of obstructing stone, also likely pre-renal component given N/V and poor PO intake Continue to hold HCTZ Patient is status post left ureteral stent Cr down to 1.63 Type 2 diabetes A1c 7.2 in August 2021 Hold home agents SSI while in-patient. BSG AC HS Hypertension Holding hctz 2/2 ARF BP stable Continue to monitor. History of TIA Remote h/o TIA 10-15 years ago. On aspirin and statin Dyslipidemia Continue statin DVT Ppx: SCDs. Thrombocytopenia Code status: FULL PCP: Melo PT/OT petar noted Possible dc tomorrow Admission and Anticipated Discharge Date Admission Date: December 05, 2021 Subjective Patient seen and examined. Reports generalized weakness are improving Denies nausea, vomiting, abd pain Reported chest pain overnight. EKG and trop not suggestive of ACS. Got maalox and its resolved Denies chest pain at this time Denies cough, shortness of breath Denies fevers or chill Physical Exam Constitutional: + well hydrated; no acute distress Eyes: PERRL, conjunctivae normal, anicteric sclerae ENMT: external ear and nose normal, oropharynx normal Papular rash on both angles of mouth Respiratory: normal respiratory effort, lungs clear to auscultation Cardiovascular: Rate/Rhythm: regular rate and regular rhythm S1 S2 Gastrointestinal (Abdomen): normal bowel sounds, soft, nontender, no hepatosplenomegaly Musculoskeletal: no cyanosis or clubbing, extremities motor strength 5/5 Neurologic: PERRL, EOMI, accommodation nl, no face palsy, no dysarthria Psychiatric: A+Ox3, euthymic affect Results & Data Results & Data ([facility]) Vital Signs (Past 12 Hours) Vital Signs Temp Pulse Pulse Resp BP Pulse Ox O2 Del Method 12/10/21 11:10 36.6 C 85 18 164/84 H 98 Room Air 12/10/21 07:00 78 12/10/21 07:55 36.6 C 85 16 158/85 H 98 Room Air 12/10/21 03:35 36.4 C L 76 20 159/81 H 97 Room Air 12/10/21 00:17 71 Laboratory Results Abnormal lab results 12/09/21 12/09/21 12/09/21 Range/Units 16:53 20:06 21:46 WBC (4.8-10.8) K/ul RBC (3.93-5.22) M/uL Hgb (12.0-16.0) g/dl Hct (34.1-44.9) % Plt Count (130-400) K/uL Platelet Estimate (Normal) Anion Gap (3-11) BUN (6-23) mg/dl Creatinine (0.6-1.2) mg/dl BUN/Creatinine Ratio (10-20) Glucose (70-99(Fasting)) mg/dl POC Glucose 152 H 160 H (70-99) mg/dl Troponin I High Sens 23.8 H (0-14) pg/ml 12/10/21 12/10/21 12/10/21 Range/Units 06:24 06:33 07:48 WBC 17.64 H (4.8-10.8) K/ul RBC 3.82 L (3.93-5.22) M/uL Hgb 10.8 L (12.0-16.0) g/dl Hct 31.1 L (34.1-44.9) % Plt Count 105 L (130-400) K/uL Platelet Estimate Decreased L (Normal) Anion Gap 12 H (3-11) BUN 55 H (6-23) mg/dl Creatinine 1.63 H D (0.6-1.2) mg/dl BUN/Creatinine Ratio 33.7 H (10-20) Glucose 177 H (70-99(Fasting)) mg/dl POC Glucose 176 H (70-99) mg/dl Troponin I High Sens 19.9 H (0-14) pg/ml 12/10/21 Range/Units 11:47 WBC (4.8-10.8) K/ul RBC (3.93-5.22) M/uL Hgb (12.0-16.0) g/dl Hct (34.1-44.9) % Plt Count (130-400) K/uL Platelet Estimate (Normal) Anion Gap (3-11) BUN (6-23) mg/dl Creatinine (0.6-1.2) mg/dl BUN/Creatinine Ratio (10-20) Glucose (70-99(Fasting)) mg/dl POC Glucose 245 H (70-99) mg/dl Troponin I High Sens (0-14) pg/ml
[2021-12-10] MEDS: cefTRIAXone SODIUM 2,000 MG in DEXTROSE 5% 50 ML IV SCH (14:46)
[2021-12-10] MEDS: ACETAMINOPHEN 325 MG TAB PO PRN (20:49)
[2021-12-11] MEDS: ACYCLOVIR 5% OINT 15 GM TUBE EXT SCH (07:41)
[2021-12-11] MEDS: ATORVASTATIN 10 MG TAB PO SCH (07:42)
[2021-12-11] MEDS: ASPIRIN 81 MG CHEW PO SCH (07:42)
[2021-12-11] MEDS: EZETIMIBE 10 MG TABLET PO SCH (07:42)
[2021-12-11] MEDS: INSULIN ASPART PER UNIT SC SCH ×2 (07:55→12:02)
[2021-12-11 07:57] LABS: Hematocrit (blood only) 30.9 % (34.1-44.9); Hemoglobin 10.7 g/dl (12.0-16.0); Mean Corpuscular Hemoglobin 28.1 pg (25.0-34.0); Mean Corpuscular Hgb Conc 34.6 g/dL (32.0-36.0); Mean Corpuscular Volume 81.1 fL (80.0-100.0); Mean Platelet Volume 11.3 fL (9.4-12.3); Platelet Count 156 K/uL (130-400); RDW Coefficient of Variation 14.4 % (11.5-14.5); RDW Standard Deviation 41.8 fL (36.4-46.3); Red Blood Count 3.81 M/uL (3.93-5.22); White Blood Count 16.39 K/ul (4.8-10.8)
[2021-12-11 08:25] LABS: BUN Creatinine Ratio 40.5 (10-20); Calcium 9.2 mg/dl (8.5-10.1); Creatinine Clr Calc Pharmacy 47.7 ml/min; Est GFR (African American) 57.6 ml/min; Est GFR (Non-African American) 49.7 ml/min; Potassium 3.4 mmol/L (3.5-5.1)
[2021-12-11] MEDS ORDERED: POTASSIUM CHLORIDE CRTAB 20 MEQ TABCR PO STA (08:54)
--- NOTE | 2021-12-11 11:02 | Discharge Summary ---
Discharge Summary Date of Service December 11, 2021 Notes For Next Care Provider Continue management of chronic medical problems Needs to follow up with urology outpatient Medication Changes From Visit Discharge on 7 more days of cefdinir to complete antibiotics therapy Admission HPI Per Admitting Provider This is a 66yo F with a PMH of DM II, HTN, dyslipidemia, history of kidney stones and other medical problems listed below who presents with flank pain, nausea and vomiting over the past 2 days. Initially had left flank pain and decreased appetite but then developed nausea and vomiting. Denies fever and chills at home. Daughter took patient to [place] ER last evening and was discharged on hydrocodone, Toradol, Zofran and Flomax and instructed to follow- up with urologist Dr. Lopez. Continued to feel worse overnight, developing central chest pain, continued nausea and vomiting. Daughter brought her to [facility] [address] [facility] ED for further evaluation. Patient was examined in [facility] in after receiving IV fluid resuscitation, antibiotic and pain control in ED. Is much more comfortable after fentanyl. Denies any residual flank pain. Feels dehydrated and nauseous. No chills, headache, CP, SOB, abdominal pain, diarrhea or constipation. No recent medications changes. Patient has history of ureteral stones requiring multiple stents years ago. Admission Exam Per Admitting Provider General +weak, sleeping, ill Head- atraumatic Eyes- PERRL, EOMI, ENT +dry mucosa Neck- supple, no JVD Lungs- clear to auscultation Heart- +tachycardia Abdomen- normal bowel sounds, soft, nontender Extremities- no calf tenderness Neuro- alert, oriented x 3; PERRL, EOMI Principal Dx & Hospital Course #1 = Principal Diagnosis (1) Hydronephrosis with urinary obstruction due to ureteral calculus: (2) Recurrent kidney stones: (3) Complicated UTI (urinary tract infection): (4) Acute kidney injury: (5) Diabetes mellitus, type 2: (6) HTN (hypertension): (7) Transient ischemic attack (TIA): (8) Dyslipidemia: Plan 66yo F with a PMH of DM II, HTN, dyslipidemia, history of kidney stones and other medical problems listed below who presented 12/05 with flank pain, nausea and vomiting over the past 2 days [employer] and was found to have severe sepsis and acute renal failure in setting of obstructing ureteral stone. Severe sepsis POA/ lactic acidosis Obstructing ureteral stone Complicated UTI Recurrent kidney stones At presentation, was initially hypotensive 87/57 but volume resuscitated with 2.5 L NSS per sepsis protocol - BP improved to 115/79 Was tachycardic with leukocytosis, lactic acidosis and complicated UTI conforming to severe sepsis. Admitting CT abd/pelvis with 6 mm obstructing calculus at the left vesicoureteral junction. This causes mild to moderate left hydroureteronephrosis Status post emergent left ureteral stent placement 12/05. Admitting UA abnormal Urine culture grew E coli, lactobacillus spp Blood culture from 12/05 grew E coli Leukocytosis continues to improve. Down to 16K from a peak of 22K Repeat blood cultures negative so far Was on IV antibiotics (cefepime then transitioned to ceftriaxone) Has received 7 days of antibiotics so far. Discharged on po cefdinir for another 7 days to complete treatment Acute renal failure Admitting Cr 4.24. Cr 0.8 at baseline. Patient is status post left ureteral stent Acute kidney injury. Likely due pre and post renal. Possible ATN in the setting of severe sepsis too. Resolving Cr down to 1.16 today Type 2 diabetes A1c 7.2 in August 2021 A1c is 7.6 on 12/06/21 Resume home antidiabetics on discharge Hypertension HCTZ was held while inpatient Can resume on discharge History of TIA Remote h/o TIA 10-15 years ago. On aspirin and statin Dyslipidemia Continue statin Patient to continue topical acyclovir started for maculopapular rash at angles of mouth for cold sore Discharge Exam Constitutional + well hydrated; no acute distress Eyes PERRL, conjunctivae normal, anicteric sclerae ENMT external ear and nose normal, oropharynx normal Respiratory normal respiratory effort, lungs clear to auscultation Cardiovascular Rate/Rhythm: regular rate and regular rhythm S1 S2 Gastrointestinal (Abdomen) normal bowel sounds, soft, nontender, no hepatosplenomegaly Musculoskeletal no cyanosis or clubbing, extremities motor strength 5/5 Neurologic PERRL, EOMI, accommodation nl, no face palsy, no dysarthria Psychiatric A+Ox3, euthymic affect Updated Medication List Medication Instructions Recorded Confirmed Type aspirin 81 mg tablet,delayed 81 mg PO QAM 07/07/18 12/05/21 History release ezetimibe 10 mg tablet 10 mg PO QAM 07/07/18 12/05/21 History empagliflozin 25 mg tablet 25 mg PO QAM 08/25/19 12/05/21 History (Jardiance) atorvastatin 10 mg tablet 10 mg PO DAILY 12/05/21 12/05/21 History glimepiride 4 mg tablet 4 mg PO DAILY 12/05/21 12/05/21 History hydrochlorothiazide 25 mg tablet 25 mg PO DAILY 12/05/21 12/05/21 History metformin 750 mg tablet,extended 1,500 mg PO DAILY 12/05/21 12/05/21 History release 24 hr polyethylene glycol 3350 17 gram 17 g PO DAILY PRN Constipation 12/05/21 12/05/21 History oral powder packet (Miralax) cefdinir 300 mg capsule 300 mg PO BID 7 days #14 caps 12/11/21 Rx Hospital Stay Data Consultations 12/05/21 14:58 ED Decision to Admit Stat 12/05/21 16:27 Consult [employer] Routine Procedures Performed Operation Date: 12/05/21 11:45 Actual Procedures p Cystoscopy, Left Ureteral Stent Insertion(Left) - Rafa Allan MD Diagnostic Imagining Performed 12/05/21 FL retrograde includes kub Routine 12/05/21 13:39 CT abd pelvis wo con Stat Lung bases: The heart is normal in size and without pericardial effusion. The coronary arteries are densely calcified. There are trace pleural effusions with dependent consolidation. A small hiatal hernia is noted. Liver: The unenhanced liver is normal in size, contour, and attenuation. There is no intrahepatic biliary ductal dilatation. Gallbladder: Unremarkable. Spleen: Normal in size and attenuation. There are at least 3 peripherally calcified splenic artery aneurysms measuring up to 13 mm. Pancreas: The unenhanced pancreas is grossly unremarkable. Adrenal glands: Unremarkable. Kidneys: The unenhanced kidneys are normal in size PA there is a 6 mm obstructing calculus at the left vesicoureteral junction seen on image #[id number]. This causes mild to moderate left hydroureteronephrosis. There is associated left-sided perinephric stranding and fluid. Urothelial thickening is noted in the left ureter. There are least 2 additional punctate nonobstructing left renal calculi. There is a 3 mm nonobstructing calculus seen in the right lower pole. No right ureteral calculus is identified and there is no right-sided hydronephrosis. There is no evidence of contour deforming renal mass lesion. Abdominal vasculature: The abdominal aorta is normal in course and caliber noting mild to moderate atherosclerotic calcification. Bowel: There is moderate colonic fecal retention. No bowel obstruction is seen. The appendix is well-visualized and normal. Peritoneum: There is no intraperitoneal free air or abdominal ascites. Lymphadenopathy: None. Pelvic viscera: The bladder is normal as visualized. The uterus is heterogeneous and contains calcified fibroids. No adnexal lesion is seen. Skeletal structures: The skeletal structures are osteopenic. There is mild lumbosacral spondylosis. No lytic or blastic lesions are seen. IMPRESSION: 1. There is a 6 mm obstructing calculus at the left vesicoureteral junction. This causes mild to moderate left hydroureteronephrosis. 2. Additional small nonobstructing calculi are seen in both kidneys. 3. Moderate constipation. 4. Trace pleural effusions with dependent bibasilar consolidation. This could represent atelectasis and/or pneumonia and clinical correlation will be required. 5. Fibroid uterus. 6. Additional findings as above. 12/07/21 00:37 US venous doppler LE BI Urgent Currently there is normal compressibility of the deep venous system from the common femoral vein through the proximal calf veins. Left popliteal fossa fluid collection is seen compatible with popliteal cyst. Impression: No evidence of deep venous thrombus. Pending Results Patient Have Any Pending Studies at Discharge: No Discharge Instructions Given to Patient (Per Discharging Provider) Mrs Ayala You came to the hospital complaining of nausea, vomiting and flank pain. You were evaluated and managed for severe sepsis, acute kidney injury, obstructive kidney stone and complicated urinary tract infection. You got ureteral stent put in by Urology. You need to follow up with them outpatient. You are being discharged on 7 more days of antibiotics to complete treatment. You can use the antiviral cream provided for rash at the angle of your mouth. Ensure follow up with your Primary Doctor. It was a pleasure taking care of you. Total Time Total Time Spent Total Time Spent (In Minutes): 50 Total Time Includes: Examination of the Patient, Discharge Planning and Medication Reconciliation
== END 2021-12-11 13:52 | disposition home health service (06) | DRG 853 ==
LOC: ED 11:32 → 1E 15:08 → SUATTDRO 15:33 → 4W 12-06 22:30 → 2N 12-09 05:44

== ENCOUNTER 2023-05-14 07:34 | Inpatient (IN) ==
--- NOTE | 2023-05-14 07:41 | Emergency Department Note ---
History of Present Illness General Chief complaint: Flank Pain Stated complaint: POSSIBLE KIDNEY STONE, SIDE PAIN Time Seen by Provider: 05/14/23 07:41 History of Present Illness This is a 67-year-old female that presents to the emergency department via private vehicle with complaints of "possible kidney stone, side pain". Patient notes that she is experiencing right flank pain that started this past Saturday. She does note a history of kidney stones. There is associated nausea. She has been taking acetaminophen to help manage the pain with minimal relief. She initially presented to a urgent care type ([facility]) this past Saturday and a urine sample was obtained and she notes the culture was negative. The patient denies any associated fevers, chills, vomiting, chest pain or shortness of breath. The patient denies any new pertinent past medical history, surgeries or changes to her allergies. Allergies are noted to be sulfa drugs and lisinopril. Per review of the EMR the patient was last in the ED on 12/05/2021. Diagnoses at that time septic shock, OTILIA, complicated UTI, hydronephrosis with urinary obstruction due to ureteral calculus, lactic acidosis. At that time she was seen for left flank pain. Ultimately patient was admitted at that time and underwent urologic procedure. Home Medications Medication Instructions Recorded Confirmed Type aspirin 81 mg tablet,delayed 81 mg PO QAM 07/07/18 05/14/23 History release ezetimibe 10 mg tablet 10 mg PO QAM 07/07/18 05/14/23 History empagliflozin 25 mg tablet 25 mg PO QAM 08/25/19 05/14/23 History (Jardiance) atorvastatin 10 mg tablet 10 mg PO QAM 12/05/21 05/14/23 History glimepiride 4 mg tablet 4 mg PO QAM 12/05/21 05/14/23 History hydrochlorothiazide 25 mg tablet 25 mg PO QAM 12/05/21 05/14/23 History metformin 750 mg tablet,extended 1,500 mg PO DAILY 12/05/21 05/14/23 History release 24 hr polyethylene glycol 3350 17 gram 17 g PO DAILY PRN Constipation 12/05/21 05/14/23 History oral powder packet (Miralax) Allergies Allergy/AdvReac Type Severity Reaction Status Date / Time Sulfa (Sulfonamide Allergy Unknown Unknown Verified 12/26/21 11:08 Antibiotics) lisinopril AdvReac Unknown Cough Verified 12/26/21 11:08 Past Med/Surg History Medical History HTN (hypertension) Septic shock treated at [facility]. r/t kidney stone and kidney infection, admitted 12/05/21 Recurrent kidney stones Dyslipidemia GERD (gastroesophageal reflux disease) OCCASIONAL. Diabetes mellitus, type 2 NIDDM Transient ischemic attack (TIA) ~10-15 YEARS AGO. TAKES ASPIRIN 81 DAILY Hypertension Surgical History S/P cystoscopy with ureteral stent placement S/P endometrial ablation History of laparoscopy History of bilateral tubal ligation History of colonoscopy History of parathyroidectomy R/T INCREASED IRON IN BLOOD AND ENLARGEMENT Family History Grandmother (Paternal) Family history of diabetes mellitus Father Family history of diabetes mellitus Social History Smoking Status: Never smoker Second Hand Exposure: Yes; Do You Dip or Chew Tobacco: No; Hx Alcohol Use: Yes Hx Substance Use: No Preferred Language: [place] Communication Ability: Effective Manager Occupational Required: No Beliefs That Will Affect Care: None marital status: Single Current Living Situation: Family and Significant Other Current Living Situation Comment: boyfriend and adult son Feels Safe at Home: Yes Assistive Devices: None Review of Systems A total of 10 systems reviewed and were otherwise negative Physical Exam Vital Signs Vital Signs - 24 hr 05/14/23 07:37 05/14/23 07:50 05/14/23 07:51 Temperature 36.4 C L Temperature Source Oral Pulse Rate 80 87 87 Pulse Rate [Apical] Respiratory Rate 16 19 25 H Respiratory Effort / Characteristics Non-Labored Respiratory Depth Normal Respiratory Pattern Regular Blood Pressure 165/83 H Blood Pressure [Right Arm] Blood Pressure Mean 110 Blood Pressure Mean [Right Arm] Pulse Oximetry 97 Oxygen Delivery Method Room Air Sepsis Recent Fever Within 48 Hours No Sepsis New/Unexplained Change in Mental Status N/A Sepsis Action Taken by Nursing No Action Required 05/14/23 07:51 05/14/23 07:54 05/14/23 07:54 Temperature Temperature Source Pulse Rate 80 Pulse Rate [Apical] 76 Respiratory Rate 20 Respiratory Effort / Characteristics Non-Labored Spontaneous Respiratory Depth Normal Respiratory Pattern Blood Pressure 163/103 H Blood Pressure [Right Arm] 163/103 H Blood Pressure Mean 134 Blood Pressure Mean [Right Arm] 123 Pulse Oximetry 97 Oxygen Delivery Method Room Air Sepsis Recent Fever Within 48 Hours Sepsis New/Unexplained Change in Mental Status Sepsis Action Taken by Nursing 05/14/23 08:07 05/14/23 08:07 05/14/23 09:14 Temperature Temperature Source Pulse Rate 71 Pulse Rate [Apical] Respiratory Rate 20 Respiratory Effort / Characteristics Respiratory Depth Respiratory Pattern Blood Pressure 150/97 H 143/82 H Blood Pressure [Right Arm] Blood Pressure Mean 112 103 Blood Pressure Mean [Right Arm] Pulse Oximetry Oxygen Delivery Method Sepsis Recent Fever Within 48 Hours Sepsis New/Unexplained Change in Mental Status Sepsis Action Taken by Nursing 05/14/23 09:14 Temperature Temperature Source Pulse Rate 58 L Pulse Rate [Apical] Respiratory Rate 21 Respiratory Effort / Characteristics Respiratory Depth Respiratory Pattern Blood Pressure Blood Pressure [Right Arm] Blood Pressure Mean Blood Pressure Mean [Right Arm] Pulse Oximetry 97 Oxygen Delivery Method Sepsis Recent Fever Within 48 Hours Sepsis New/Unexplained Change in Mental Status Sepsis Action Taken by Nursing VITAL SIGNS - Vital signs and nursing notes were reviewed. Hypertensive, otherwise stable and afebrile. GENERAL - 67-year-old female appearing her stated age who is in no acute distress. Communicates well with provider and answers questions appropriately. SKIN - Without rashes. HEAD - NC/AT. EYES - PERRL with EOMI bilaterally. Sclera anicteric. EARS - No deformities of external structures noted on gross examination bilaterally. NOSE - Midline and without cyanosis. No epistaxis or purulent drainage noted. MOUTH/OROPHARYNX - Without perioral cyanosis. NECK - Neck with FROM. No nuchal rigidity. LUNGS - Chest wall symmetric without accessory muscle use, intercostals retractions, or central cyanosis. Normal vesicular breath sounds CTA B/L. No wheezes, rales, or rhonchi appreciated. CARDIAC - RRR with S1/S2. No murmur, rubs, or gallops appreciated. ABDOMEN - Abdominal contour normal without pulsations or visible masses. BS normoactive all four quadrants. No tenderness, palpable masses, hepatosplenomegaly, or ascites noted. EXTREMITIES - No clubbing or peripheral cyanosis. +5/5 strength noted in UE/LE bilaterally. NEUROLOGIC - Cranial nerves II through XII grossly intact. PSYCH - A&Ox3 and cooperates fully with examiner. Pt is very pleasant and interacts well with examiner. Course Administered Medications Discontinued Medications Sodium Chloride (Nss) 1,000 mls @ 999 mls/hr IV .Q1H1M FRANCOISE Stop: 05/14/23 09:00 Last Infusion: 05/14/23 08:51 Dose: Infused Documented By: Admin: 05/14/23 07:50 Dose: 999 mls/hr Documented By: HS Ceftriaxone Sodium (Rocephin) 2,000 mg in 50 mls @ 100 mls/hr IV NOW STA Stop: 05/14/23 10:25 Last Infusion: 05/14/23 10:51 Dose: Infused Documented By: Admin: 05/14/23 10:19 Dose: 100 mls/hr Documented By: HS Potassium Chloride (Potassium Chloride Crtab 20 Meq Tabcr) 40 meq PO NOW STA Stop: 05/14/23 11:11 Last Admin: 05/14/23 11:22 Dose: 40 meq Documented By: HS Medical Decision Making Laboratory Data 05/14/23 07:50 05/14/23 07:50 Lab Results 05/14/23 05/14/23 Range/Units 07:50 09:15 WBC 8.73 (4.8-10.8) K/ul RBC 5.40 (4.20-5.40) M/uL Hgb 14.9 (12.0-16.0) g/dl Hct 44.8 (37.0-47.0) % MCV 83.0 (80.0-100.0) fL MCH 27.6 (25.0-34.0) pg MCHC 33.3 (32.0-36.0) g/dL RDW Std Deviation 39.8 (36.4-46.3) fL RDW Coeff of Niyah 13.2 (11.5-14.5) % Plt Count 193 (130-400) K/uL MPV 10.2 (9.4-12.4) fL Immature Gran % (Auto) 0.2 % Neut % (Auto) 48.0 % Lymph % (Auto) 38.6 % [place] % (Auto) 6.9 % Eos % (Auto) 5.8 % Baso % (Auto) 0.5 % Neut # (Auto) 4.19 (1.40-6.50) K/uL Lymph # (Auto) 3.37 (1.20-3.40) K/uL [place] # (Auto) 0.60 H (0.11-0.59) K/uL Eos # (Auto) 0.51 H (0.00-0.50) K/uL Baso # (Auto) 0.04 (0.00-0.20) K/uL Immature Gran # (Auto) 0.02 (0.01-0.20) K/uL Sodium 137 (136-145) mmol/L Potassium 3.3 L (3.5-5.1) mmol/L Chloride 100 (98-107) mmol/L Carbon Dioxide 27 (21-32) mmol/L Anion Gap 10 (3-11) BUN 23 (6-23) mg/dl Creatinine 0.95 (0.6-1.2) mg/dl Est Cr Clr Drug Dosing 56.8 ml/min Est GFR ( Amer) 72.8 ml/min Est GFR (Non-Af Amer) 62.9 ml/min BUN/Creatinine Ratio 24.2 H (10-20) Glucose 193 H (70-99(Fasting)) mg/dl Calcium 10.0 (8.6-10.3) mg/dl Total Bilirubin 0.5 (0.2-1.0) mg/dl AST 17 (13-39) U/L ALT 12 (7-52) U/L Alkaline Phosphatase 80 (34-104) U/L Total Protein 8.0 (6.0-8.3) gm/dl Albumin 4.5 (3.4-5.0) gm/dl Globulin 3.5 (2.5-4.0) gm/dl Albumin/Globulin Ratio 1.3 (0.9-2) Urine Color Yellow Urine Appearance Clear (Clear) Urine pH 5.0 (4.5-7.5) Ur Specific [place] 1.022 (1.000-1.030) Urine Protein Negative (Negative) Urine Glucose (UA) 3+ H (Negative) Urine Ketones Negative (Negative) Urine Blood Negative (Negative) Urine Nitrite Positive A (Negative) Urine Bilirubin Negative (Negative) Urine Urobilinogen Negative (Negative) Ur Leukocyte Esterase Trace H (Negative) Urine WBC (Auto) 10-30 H (0-5) /hpf Urine RBC (Auto) 0-4 (0-4) /hpf U Hyaline Cast (Auto) 1-5 (0-5) /lpf U Epithel Cells (Auto) 20-30 H (0-5) /lpf Urine Bacteria (Auto) 3+ H (Negative) Imaging Data Radiologist's Impression: Abdomen/Pelvis CT 05/14/23 07:48 CT abd pelvis wo con CLINICAL HISTORY: R flank pain, hx kidney stone TECHNIQUE: Helical axial images of the abdomen and pelvis were obtained. Automated dose lowering techniques and/or adjustment according to patient size were utilized for this exam. This exam was performed without intravenous contrast. CT DOSE: 1052.05 mGy.cm COMPARISON: Comparison is made to CT abdomen pelvis 12/05/2021 FINDINGS: Lower chest: Minimal atelectasis in the right lung base. Liver: Unremarkable. No focal lesions are seen. Gallbladder and biliary tree: No calcified gallstones. Normal caliber wall. No intra- or extrahepatic biliary ductal dilation. Pancreas: Unremarkable, no focal lesions. Spleen: Splenule is incidentally noted. Adrenals: Unremarkable. Kidneys and ureters: Nonobstructive nephrolithiasis is seen. Bladder: Unremarkable. Reproductive organs: Unremarkable. Bowel: The appendix is normal. There is a small hiatal hernia. Lymph nodes Retroperitoneal: Unremarkable. Pelvic: Unremarkable. Mesenteric: Unremarkable. Peritoneum: Normal. Vessels: Atherosclerotic calcifications are seen. Abdominal wall: Unremarkable. Bones: Degenerative changes in the visualized spine. IMPRESSION: No acute abnormalities. Nonobstructive nephrolithiasis is seen. The appendix is normal and there is no evidence of obstructive stone or hydronephrosis. ACT 112: Negative or not required by law. Electronically signed by: Cb Hunter M.D. 05/14/2023 8:23 AM [facility] Narrative Patient was seen and evaluated as above in room A04a. Review was performed of nursing notes and vital signs. I did review pertinent previous visits and patient history. After obtaining a thorough history and physical examination the above work up was performed. Patient presents to us today for evaluation of right flank pain. She is well-appearing and nontoxic on examination. Options of care were discussed with the patient. She does have right flank pain. She was hydrated with IV labs reveal no leukocytosis or concerning anemia. Mild hypokalemia 3.3. Hyperglycemia 193. Fluids. Urinalysis suggest UTI. The patient does have right flank pain. I am clinically concerned about an ascending urinary tract infection such as pyelonephritis. IV ceftriaxone was ordered. I did speak to the radiologist at 9:43 AM that had read her study to confirm no obstructing stone. No obstructing stone seen. At this time we will proceed with inpatient management noting the patient's past medical history, right flank pain with clinical concern for ascending urinary tract infection noting urinalysis findings here today. At this time I do believe that inpatient management is warranted. Case discussed with the hospitalist service. Please refer to further documentation regarding her stay. Patient amenable to plan of care. GCS: 15 In the evaluation and treatment of this patient the following differential diagnoses were entertained: UTI, pyelonephritis, obstructing stone, diverticulitis, appendicitis, among others. Impression & Plan Complicated UTI (urinary tract infection), Right flank pain Discharge Plan Visit Data Chief Complaint: Flank Pain Stated Complaint: POSSIBLE KIDNEY STONE, SIDE PAIN ED Provider: Chano De Souza ED Midlevel Provider: Chidi Rodney Discharge Problem: Complicated UTI (urinary tract infection), Right flank pain Patient Disposition: Admitted As Inpatient Condition: Good Discharge Instructions Interventions: ED Discharge Assessment Last Done: 05/14/23 13:49
[2023-05-14] MEDS: SODIUM CHLORIDE 0.9% 1,000 ML IV SCH (07:50)
[2023-05-14 08:11] LABS: Basophils # (auto) 0.04 K/uL (0.00-0.20); Basophils % (auto) 0.5 %; Eosinophils # (auto) 0.51 K/uL (0.00-0.50); Eosinophils % (auto) 5.8 %; Hematocrit (blood only) 44.8 % (37.0-47.0); Hemoglobin 14.9 g/dl (12.0-16.0); Immature Granulocytes # (auto) 0.02 K/uL (0.01-0.20); Immature Granulocytes % (auto) 0.2 %; Lymphocytes # (auto) 3.37 K/uL (1.20-3.40); Lymphocytes % (auto) 38.6 %; Mean Corpuscular Hemoglobin 27.6 pg (25.0-34.0); Mean Corpuscular Hgb Conc 33.3 g/dL (32.0-36.0); Mean Platelet Volume 10.2 fL (9.4-12.4); Monocytes % (auto) 6.9 %; Neutrophils # (auto) 4.19 K/uL (1.40-6.50); Platelet Count 193 K/uL (130-400); RDW Coefficient of Variation 13.2 % (11.5-14.5); RDW Standard Deviation 39.8 fL (36.4-46.3); White Blood Count 8.73 K/ul (4.8-10.8)
--- NOTE | 2023-05-14 08:24 | CT Scan Report ---
CT abd pelvis wo con CLINICAL HISTORY: R flank pain, hx kidney stone TECHNIQUE: Helical axial images of the abdomen and pelvis were obtained. Automated dose lowering tech niques and/or adjustment according to patient size were utilized for this exam. This exam was perfor med without intravenous contrast. CT DOSE: 1052.05 mGy.cm COMPARISON: Comparison is made to CT abdomen pelvis 12/05/2021 FINDINGS: Lower chest: Minimal atelectasis in the right lung base. Liver: Unremarkable. No focal lesions are seen. Gallbladder and biliary tree: No calcified gallstones. Normal caliber wall. No intra- or extrahepatic biliary ductal dilation. Pancreas: Unremarkable, no focal lesions. Spleen: Splenule is incidentally noted. Adrenals: Unremarkable. Kidneys and ureters: Nonobstructive nephrolithiasis is seen. Bladder: Unremarkable. Reproductive organs: Unremarkable. Bowel: The appendix is normal. There is a small hiatal hernia. Lymph nodes Retroperitoneal: Unremarkable. Pelvic: Unremarkable. Mesenteric: Unremarkable. Peritoneum: Normal. Vessels: Atherosclerotic calcifications are seen. Abdominal wall: Unremarkable. Bones: Degenerative changes in the visualized spine. IMPRESSION: No acute abnormalities. Nonobstructive nephrolithiasis is seen. The appendix is normal and there is n o evidence of obstructive stone or hydronephrosis. ACT 112: Negative or not required by law. Electronically signed by: Cb Hunter M.D. 05/14/2023 8:23 AM
[2023-05-14 08:27] LABS: Albumin Globulin Ratio 1.3 (0.9-2); Albumin Level 4.5 gm/dl (3.4-5.0); BUN Creatinine Ratio 24.2 (10-20); Bilirubin,Total 0.5 mg/dl (0.2-1.0); Creatinine Clr Calc Pharmacy 56.8 ml/min; Est GFR (African American) 72.8 ml/min; Est GFR (Non-African American) 62.9 ml/min; Globulin 3.5 gm/dl (2.5-4.0); Potassium 3.3 mmol/L (3.5-5.1)
[2023-05-14 09:28] LABS: Appearance Urine Clear (Clear); Bacteria Urine Automated 3+ (Negative); Bilirubin Urine Negative (Negative); Blood Urine Negative (Negative); Color Urine Yellow; Epithelial Cell Urine Auto 20-30 /lpf (0-5); Glucose Urine UA 3+ (Negative); Ketones Urine Negative (Negative); Leukocyte Esterase Urine Trace (Negative); Nitrite Urine Positive (Negative); Protein Urine Negative (Negative); RBC Urine Automated 0-4 /hpf (0-4); Specific Gravity Urine 1.022 (1.000-1.030); Urobilinogen Urine Negative (Negative)
[2023-05-14] MEDS: cefTRIAXone SODIUM 2,000 MG/50 ML BAG IV STA (10:19)
--- NOTE | 2023-05-14 10:21 | History & Physical Report ---
Date of Service May 14, 2023 Assessment & Plan (1) Acute UTI (urinary tract infection): (2) Right flank pain: (3) Hypokalemia: Plan Pt is a 67yoF with PMHx significant for history of kidney stones, DMII, HTN, HLD, DD, Vit D deficiency, Hx of primary hyperparathyroidism s/p pa rathyroidectomy in 2009, chronic constipation, Hx of TIA presenting with flank pain. Flank Pain Complicated UTI Pt presenting with flank pain of 2-3 days Hx of urosepsis with obstructive uropathy UA suggestive of infection in the ED, urine Cx pending CT abd/pelvis with no noted obstructing kidney stones No signs of sepsis on admission Hypokalemia K of 3.3 on admission Replete as needed DMII- Glucose of 193. On jardiance, amaryl and metformin at home. Holding. Basal/bolus while hospitalized HTN- continue home HCTZ Constipation- notes chronic Hx. Started on docusate sodium 100mg BID scheduled with home miralax prn HLD- continue home zetia and atorvastatin Hx of TIA- continue home aspirin and statin Hx of primary hyperparathyroidism- s/p parathyroidectomy in 2009, pathology noted "parathyroid adenoma" Vit D deficiency- not currently on supplementation. AM Vit D level DVT prophylaxis: Lovenox SQ Diet: HH/DMII CODE STATUS: Conditional- wants CPR and defibrillation, does not want intubation/ventilator support Dispo: Med/Surg History of Present Illness Chief Complaint: Flank Pain Primary Care Provider: Virgil Nolasco MD Pt is a 67yoF with PMHx significant for history of kidney stones, DMII, HTN, HLD, DD, Vit D deficiency, Hx of primary hyperparathyroidism s/p parathyroidectomy in 2009, chronic constipation, Hx of TIA presenting with flank pain. States that she went to an urgent care 2 days ago concerned that she might have obstructing kidney stones again. Believed that a urine sample was evaluated and she was told she was fine. however, the pain persisted and she presented to the ED today. States that the pain started generalized over the entire abdominal area before transitioning to just the left lower abdomen and left flank area. Denies dysuria but does note urinary urgency. Denies urinary frequency. States that she is nauseated but has not vomitted. Denies fevers, chills or night sweats. Hx in the past of urosepsis, had stents placed for obstructive uropathy. Notes Hx of DMII and states that she is compliant with her medications. 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 In discussing code status, she notes that when it's her "time to go, let me go". States that she does not want intubation or ventilatory support but would like CPR and defibrillator treatments. Allergies Allergy/AdvReac Type Severity Reaction Status Date / Time Sulfa (Sulfonamide Allergy Unknown Unknown Verified 12/26/21 11:08 Antibiotics) lisinopril AdvReac Unknown Cough Verified 12/26/21 11:08 Home Medications Medication Instructions Recorded Confirmed Type aspirin 81 mg tablet,delayed 81 mg PO QAM 07/07/18 05/14/23 History release ezetimibe 10 mg tablet 10 mg PO QAM 07/07/18 05/14/23 History empagliflozin 25 mg tablet 25 mg PO QAM 08/25/19 05/14/23 History (Jardiance) atorvastatin 10 mg tablet 10 mg PO QAM 12/05/21 05/14/23 History glimepiride 4 mg tablet 4 mg PO QAM 12/05/21 05/14/23 History hydrochlorothiazide 25 mg tablet 25 mg PO QAM 12/05/21 05/14/23 History metformin 750 mg tablet,extended 1,500 mg PO DAILY 12/05/21 05/14/23 History release 24 hr polyethylene glycol 3350 17 gram 17 g PO DAILY PRN Constipation 12/05/21 05/14/23 History oral powder packet (Miralax) Past Med/Surg History Medical History HTN (hypertension) Septic shock treated at [facility]. r/t kidney stone and kidney infection, admitted 12/05/21 Recurrent kidney stones Dyslipidemia GERD (gastroesophageal reflux disease) OCCASIONAL. Diabetes mellitus, type 2 NIDDM Transient ischemic attack (TIA) ~10-15 YEARS AGO. TAKES ASPIRIN 81 DAILY Hypertension Surgical History S/P cystoscopy with ureteral stent placement S/P endometrial ablation History of laparoscopy History of bilateral tubal ligation History of colonoscopy History of parathyroidectomy R/T INCREASED IRON IN BLOOD AND ENLARGEMENT Family History Grandmother (Paternal) Family history of diabetes mellitus Father Family history of diabetes mellitus Social History Smoking Status: Never smoker Second Hand Exposure: Yes; Do You Dip or Chew Tobacco: No; Hx Alcohol Use: Yes Hx Substance Use: No Preferred Language: Citizen Of [place] Communication Ability: Effective Montessori Preschool Teacher Required: No Beliefs That Will Affect Care: None marital status: Single Current Living Situation: Family and Significant Other Current Living Situation Comment: boyfriend and adult son Feels Safe at Home: Yes Assistive Devices: None Review of Systems Review of Systems: All systems reviewed & are unremarkable except as noted in HPI & below Physical Exam Physical Exam: General: Alert, oriented. No acute distress Skin: No noted rashes or bruises, large SK on back Psych: Appropriate mood and affect Neuro: No gross deficits HEENT: NC/AT Chest: Nontender to palpation. CV: RRR, Normal s1, s2. No murmurs appreciated Resp: Breath sounds clear bilaterally, no increased effort of breathing. Abdomen: Soft, nontender, nondistended. Flank pain cannot be reproduced with palpation Extremities: No edema in lower extremities bilaterally. Results & Data Results & Data Vital Signs (Past 12 Hours) Vital Signs Temp Pulse Pulse Resp BP BP Pulse Ox 05/14/23 09:14 58 L 21 97 05/14/23 09:14 143/82 H 05/14/23 08:07 150/97 H 05/14/23 08:07 71 20 05/14/23 07:54 80 05/14/23 07:54 76 20 163/103 H 97 05/14/23 07:51 163/103 H 05/14/23 07:51 87 25 H 05/14/23 07:50 87 19 05/14/23 07:37 36.4 C L 80 16 165/83 H 97 O2 Del Method 05/14/23 09:14 05/14/23 09:14 05/14/23 08:07 05/14/23 08:07 05/14/23 07:54 05/14/23 07:54 Room Air 05/14/23 07:51 05/14/23 07:51 05/14/23 07:50 05/14/23 07:37 Room Air Diagnostic Findings Abdomen/Pelvis CT 05/14/23 07:48 CT abd pelvis wo con CLINICAL HISTORY: R flank pain, hx kidney stone TECHNIQUE: Helical axial images of the abdomen and pelvis were obtained. Automated dose lowering techniques and/or adjustment according to patient size were utilized for this exam. This exam was performed without intravenous contrast. CT DOSE: 1052.05 mGy.cm COMPARISON: Comparison is made to CT abdomen pelvis 12/05/2021 FINDINGS: Lower chest: Minimal atelectasis in the right lung base. Liver: Unremarkable. No focal lesions are seen. Gallbladder and biliary tree: No calcified gallstones. Normal caliber wall. No intra- or extrahepatic biliary ductal dilation. Pancreas: Unremarkable, no focal lesions. Spleen: Splenule is incidentally noted. Adrenals: Unremarkable. Kidneys and ureters: Nonobstructive nephrolithiasis is seen. Bladder: Unremarkable. Reproductive organs: Unremarkable. Bowel: The appendix is normal. There is a small hiatal hernia. Lymph nodes Retroperitoneal: Unremarkable. Pelvic: Unremarkable. Mesenteric: Unremarkable. Peritoneum: Normal. Vessels: Atherosclerotic calcifications are seen. Abdominal wall: Unremarkable. Bones: Degenerative changes in the visualized spine. IMPRESSION: No acute abnormalities. Nonobstructive nephrolithiasis is seen. The appendix is normal and there is no evidence of obstructive stone or hydronephrosis. ACT 112: Negative or not required by law. Electronically signed by: Cb Hunter M.D. 05/14/2023 8:23 AM
--- OUTSIDE RECORDS SUMMARY | 2023-05-14 10:40 | External Medical Summary | Summary of Care ---
Author Name Unknown Organization [facility] Address [address] [facility] [address] Phone [phone] Care Team Providers Care Nurse Special Name Role Phone Virgil Nolasco MD Primary Care Provide r Reason for Visit * Reason Onset Date Comments Fax 01/28/2023 Encounter Details Date Type Department Care Team (Late st Contact Info) Description 01/28/2023 Telephone Family Medicine [address] [address] Virgil Nolasco MD [address] [place] [address] [place] [address] Fax Allergies Active Allergy Reactions Criticality Noted Date Comments Lisinopril Cough Low 08/21/2011 Sulfa Antibiotics 01/25/2011 documented as of this encounter (statuses as of 04/29/2023) Medications Medication Sig Dispensed Refills Start Date End Date Status ASPIRIN 81 MG PO CHEW One pill by mouth once a day with food 30 Tab 5 02/16/2014 Active Loratadine (CLARITIN) 10 MG CapIndications:as needed Take 1 Cap by mouth daily. Indications: as needed 90 Cap 1 01/15/2019 Active Blood Glucose Monitoring Suppl (FREESTYLE LITE) ANNMARIE Test blood sugar twice daily as directed; dx E11.9 1 Device 0 03/16/2019 Active Polyethylene Glycol 3350 17 GM/SCOOP Oral Powder (MiraLax)Indicati ons:Slow transit constipation Take 17 g by mouth daily. Dissolve one heaping tablespoon in 8 ounces of water or juice. 765 g 5 04/01/2020 Active Multivitamin Adults 50+ Oral Tablet Take by mouth. 0 Active Atorvastatin Calcium 10 MG Oral Tablet (Lipitor)Indicati ons:Dyslipidemia, goal LDL below 100 TAKE ONE TABLET BY MOUTH EVERY DAY 90 Tablet 3 12/19/2022 Active FreeStyle LancetsIndication s:Type 2 diabetes mellitus with hemoglobin A1c goal of less than 7.0% (HCC) Test blood sugar twice daily as directed; dx E11.9 200 Each 3 01/09/2023 Active FreeStyle Lite Test In Vitro Strip (Glucose Blood)Indications :Type 2 diabetes mellitus with hemoglobin A1c goal of less than 7.0% (HCC) Test blood sugar twice daily as directed; dx E11.9 200 Strip 3 01/09/2023 Active Empagliflozin 25 MG Oral Tablet (Jardiance)Indica tions:Type 2 diabetes mellitus with hemoglobin A1c goal of less than 7.0% (HCC) TAKE 1 TABLET IN THE MORNING 90 Tablet 3 01/17/2023 Active Ezetimibe 10 MG Oral Tablet (Zetia)Indication s:Dyslipidemia, goal LDL below 100 TAKE 1 TABLET IN THE MORNING 90 Tablet 1 06/13/2022 4 Discontinued Glimepiride 4 MG Oral Tablet (Amaryl)Indicatio ns:Type 2 diabetes mellitus with hemoglobin A1c goal of less than 7.0% (HCC) Take by mouth 1 Tablet daily before breakfast. 90 Tablet 1 09/11/2022 4 Discontinued hydroCHLOROthiazi de 25 MG Oral Tablet (Hydrodiuril)Rosy cations:HTN, goal below 140/90 TAKE ONE TABLET BY MOUTH EVERY DAY 90 Tablet 1 09/11/2022 4 Discontinued metFORMIN HCl ER 750 MG Oral Tablet Extended Release 24 Hour (Glucophage XR)Indications:Ty pe 2 diabetes mellitus with hemoglobin A1c goal of less than 7.0% (HCC) TAKE TWO TABLETS BY MOUTH EVERY DAY 180 Tablet 0 10/12/2022 4 Discontinued documented as of this encounter (statuses as of 04/29/2023) Active Problems Problem Noted Date Diagnosed Date History of kidney stones 03/25/2023 History of primary hyperparathyroidism 1 S/P parathyroidectomy 09/09/2020 Slow transit constipation 04/12/2016 Degenerative disc disease, cervical 03/15/2016 HTN, goal below 140/90 08/17/2014 Vitamin D deficiency 05/26/2009 Overview: Vitamin D 20 Type 2 diabetes mellitus wit h hemoglobin A1c goal of less than 7.0% 01/06/2009 Overview: Per Diabetes Taxonomy. ICD-10 update of inactive term ADVANCE DIRECTIVE INFORMATION 01/01/2005 Overview: No, Advance Directive brochure given to patient. Dyslipidemia, goal LDL below 100 documented as of this encounter (statuses as of 04/29/2023) Resolved Problems Problem Noted Date Diagnosed Date Resolved Date DM type 2 causing eye disease 07/23/2013 10/06/2015 Overview: mild Diabetes mellitus with background retinopathy 07/24/19 14 10/06/2015 Overweight (BMI 25.0-29.9) 03/17/2013 0 04/11/2017 Acquired renal cyst of right kidney 11/22/2012 12/24/2013 Severe obesity with body mas s index (BMI) of 35.0 to 39.9 with serious comorbidity 10/20/2012 Overview: ICD-10 update of inactive diagnosis HTN, goal below 140/80 10/29/201108/17 Overview: Per HTN Protocol #27. HTN, goal below 130/80 02/02/200910/31 Dyslipidemia, goal LDL below 130 02/02/2009 08/10/2009 HYPERCALCEMIA 07/30/2008 02/15/2010 Overview: Ca 11.5 Calculus of kidney 01/01/2005 4 Asthma with severity to be determined 03/27/2004 08/24/2010 Overview: ICD-10 update of inactive term TIA (transient ischemic attack) 03/17/2004 10/08/2016 HYPERCALCEMIA 10/13/2008 Other seborrheic keratosis 1 04/18/2009 Overview: back Kidney disease, chronic, sta ge II (GFR 60-89 ml/min) 04/11/2017 Hyperparathyroidism, primary 04/11/2017 Non-toxic multinodular goiter 09/09/2020 documented as of this encounter (statuses as of 04/29/2023) Immunizations Name Administration Dates Next Due COVID-19 mRNA, LNP-s, No Pre serve, 2-Dose Series (Moderna) 07/28/2020,06/29/2020 Hepatitis B, 20+ yrs 11/03/2007,05/05/2007,03/31 Meningococcal Conjugate Vacc ine (Menactra/Menveo) 03/19/2007 PPD 04/25/2020,10/10/2009,03/19/2007 Pneumococcal Polysaccharide PPV23 (Pneumovax) 04/22/2006 Seasonal Influenza, PF, 6 M & above, IM , (FluLaval or Fluzone) 12/15/2021,12/27/2020,12/15/2019,01/03,01/05/2017 Seasonal Influenza, Quadriva lent Hd (Fluzone Hd) 12/18/2022 Seasonal Influenza, Quadriva lent, No Preserve, IM 01/13/2016,12/29/2014 Seasonal Influenza, Split, I IV3, With Preserve, Inj 12/23/2017,12/30/2013,12/09/2012,12/23,12/30/2010,12/06/2009,12/07/2008 ,12/24/2007,12/14/2005 TDAP (age 10 and older)(Boostrix) 09/03/2017 TDAP (age 11 and older)(Adacel) 03/19/2007 Zoster Vaccine Recombinant (Shingrix) 04/28/2019 ,03/06/2019 documented as of this encounter Social History Tobacco Use Types Packs/Day Years Used Date Smoking Tobacco: Never Smokeless Tobacco: Never Alcohol Use Standard Drinks/Week Comments Yes 0 (1 standard drink = 0.6 oz pur e alcohol) ocass PHQ-2 Answer Date Recorded PHQ-2 Score 0 12/17/2019 Sex and Gender Information Value Date Recorded Sex Assigned at Not on file Gender Identity Not on file Sexual Orientation Not on file Job Start Date Occupation Industry Not on file Not on file Not on file documented as of this encounter Miscellaneous Notes * Telephone Encounter - Rahat Zhang OSA - 01/28/2023 12:21 PM EST Pt calling regarding diabetic waiver form that was faxed on 01/21. Has this been received? Has it been faxed back yet? Please call pt to advise at [phone]. documented in this encounter Plan of Treatment Upcoming Encounters Date Type Department Care Team (Late st Contact Info) Description 06/04/2023 7:20 AM EDT Office Visit Family Medicine [address] [place] [phone] Virgil Nolasco MD [address] [place] [address] [place] [address] 07/15/2023 9:00 AM EDT Office Visit Ophthalmology, [facility] [address] [facility] [place] [address] Derik Welch, DO [address] [place], [place] [address] [address] Scheduled Procedures Name Priority Associated Diagnoses Date/Ti me COLONOSCOPY FLEXIBLE PROXIMAL DIAGNOSTIC Recall Screen for colon cancer Health Maintenance Due Date Last Done Comments Cologuard 2002 Fecal Occult Blood Test 2002 Sigmoidoscopy 2002 Depression Screening 12/16/2020 12/17/2019 COVID-19 Vaccine ( season) 2022 07/28/2020, 06/29/2020 Diabetic Foot Exam 03/07/2023 03/07/2022, 0 03/20/2021, 03/18/2020, Additional history exists HbA1c 05/31/2023 11/30/2022, 06/10, 03/07/2022, Additional history exists Mammogram 06/13/2023 06/12/2022, 05/10, 06/02/2020, Additional history exists Albumin/Creatinine Ratio 09/06/2023 023, 09/01/2021, 03/22/2021, Additional history exists B-12 12/01/2023 11/30/2022, 08/10, 03/15/2020, Additional history exists GFR 12/01/2023 11/30/2022, 02/09, 12/18/2021, Additional history exists Diabetic Eye Exam 03/27/2024 03/27/2023, , 04/27/2021, Additional history exists DTaP,Tdap,and Td Vaccines (3 - Td or Tdap) 09/04/2027 09/03/2017, 03/19/2007 Lipid Panel 12/01/2027 11/30/2022, 08/10, 03/22/2021, Additional history exists Colonoscopy 04/11/2030 04/11/2020, 03/2020, 01/23/2019, Additional history exists Colorectal Cancer Screening 04/11/2030 DXA Scan 02/21/2033 02/21/2023, 05/24/2010 MENINGOCOCCAL (MENACTRA/MENVEO) Aged Out 03/19/2007 No longer eligible based on patient's age to complete this topic Hepatitis B Completed 11/03/2007, 04/12, 03/31/2007 Zoster Vaccines Completed 04/28/2019, 03/06/2019 Cervical Cancer Screening Discontinued Pap Smear Discontinued 12/23/2019, 09/10, 10/08/2016, Additional history exists Influenza Vaccine (FLU shot) Completed 12/18/2022, 12/15/2021, 12/27/2020, Additional history exists Pneumococcal Vaccine: 65+ Years Completed 03/27/2023, 04/22/2006 GARDASIL-HPV IMMUNIZATION SERIES Aged Out No longer eligible based on patient's age to complete this topic HPV/Co-Test Discontinued documented as of this encounter Medical Devices Implanted Type Area Annual Giving Director Device Identifier Shelf Expiration Date Model / Serial / Lot Lens Intraoc 20.0 - [id number] - [id number] Implanted:Qty: 1 on 03/17/2019 by Nicolas Bryant MD at OR [facility] Right: Eye [employer] 10/09/2023 [id number] / [id number] / Lens Intraoc 20.0 - [id number] - [id number] Implanted:Qty: 1 on 03/24/2019 by Nicolas Bryant MD at OR [facility] Left: Eye [employer]OM[employer] 11/09/2023 [id number] / [id number] / documented as of this encounter Advance Directives Latest Code Status on File Code Status Date Activated Date Inactivated Comments Full Code 04/05/2017 8:32 AM 04/05/2017 4:10 PM This order reflects the patients wishes and were consensually agreed upon. Code Status History Code Status Date Activated Date Inactivated Comments Full Code 03/22/2017 10:36 AM 03/22/2017 4:39 PM This order reflects the patients wishes and were consensually agreed upon. Full Code 06/27/2010 9:19 AM 06/28/2010 3:04 PM This order reflects the patients wishes and were consensually agreed upon. Care Teams Nurse Special Relationship Specialty Start Date End Date Virgil Nolasco MD [address] [place] [address] [place] [address] PCP - General Family Medicine 03/22/20 documented as of this encounter
--- OUTSIDE RECORDS SUMMARY | 2023-05-14 10:40 | External Medical Summary | Summary of Care ---
Author Name Unknown Organization [facility] Address [address] [facility] [address] Phone [phone] Care Team Providers Care Stripper Cutter Machine Name Role Phone Virgil Nolasco MD Primary Care Provide r Reason for Visit * Reason Comments eRx-Medication Refill Encounter Details Date Type Department Care Team (Late st Contact Info) Description 04/25/2023 Refill Family Medicine [address] [phone] Virgil Nolasco MD [address] [place] [address] [place] [address] Type 2 diabetes mellitus with hemoglobin A1c goal of less than 7.0% ([facility]) Allergies Active Allergy Reactions Criticality Noted Date Comments Lisinopril Cough Low 08/21/2011 Sulfa Antibiotics 01/25/2011 documented as of this encounter (statuses as of 04/25/2023) Medications Medication Sig Dispensed Refills Start Date [...] THE MORNING 90 Tablet 3 01/17/2023 Active Glimepiride 4 MG Oral Tablet (Amaryl)Indicatio ns:Type 2 diabetes mellitus with hemoglobin A1c goal of less than 7.0% (HCC) TAKE ONE TABLET BY MOUTH EVERY DAY BEFORE BREAKFAST 90 Tablet 1 03/29/2023 Active hydroCHLOROthiazi de 25 MG Oral Tablet (Hydrodiuril)Rosy cations:HTN, goal below 140/90 TAKE ONE TABLET BY MOUTH EVERY DAY 90 Tablet 1 03/29/2023 Active Ezetimibe 10 MG Oral Tablet (Zetia)Indication s:Dyslipidemia, goal LDL below 100 TAKE ONE TABLET BY MOUTH EVERY MORNING 90 Tablet 2 04/08/2023 Active metFORMIN HCl ER 750 MG Oral Tablet Extended Release 24 Hour (Glucophage XR)Indications:Ty pe 2 diabetes mellitus with hemoglobin A1c goal of less than 7.0% (HCC) TAKE TWO TABLETS BY MOUTH EVERY DAY 180 Tablet 2 04/25/2023 Active metFORMIN HCl ER 750 MG Oral Tablet Extended Release 24 Hour (Glucophage XR)Indications:Ty pe 2 diabetes mellitus with hemoglobin A1c goal of less than 7.0% (HCC) TAKE TWO TABLETS BY MOUTH EVERY DAY 180 Tablet 0 10/12/2022 4 Discontinued documented as of this encounter (statuses as of 04/25/2023) Active Problems Problem Noted Date Diagnosed Date [...] as of this encounter (statuses as of 04/25/2023) Resolved Problems Problem Noted Date Diagnosed Date [...] as of this encounter (statuses as of 04/25/2023) Immunizations Name Administration Dates Next Due COVID-19 mRNA, LNP-s, No Pre serve, 2-Dose Series (Moderna) 07/28/2020,06/29/2020 Hepatitis B, 20+ yrs 11/03/2007,05/05/2007,03/31 Meningococcal Conjugate Vacc ine (Menactra/Menveo) 03/19/2007 PPD 04/25/2020,10/10/2009,03/19/2007 Pneumococcal Conjugate Vacci ne, 20-valent ([id number]) 03/27/2023 Pneumococcal Polysaccharide PPV23 (Pneumovax) 04/22/2006 Seasonal Influenza, [...] encounter Miscellaneous Notes * Telephone Encounter - Elba Holder RPh - 04/25/2023 4:06 PM ESTSigned Prescriptions: Disp Refills metFORMIN HCl ER 750 MG Oral Tablet Extend*180 Ta*2 Sig: TAKE TWO TABLETS BY MOUTH EVERY DAYAuthorizing Provider: Vaughn NOLASCO User: ELBA HOLDER documented in this encounter Plan of Treatment Upcoming Encounters Date Type Department Care Team (Late st Contact Info) Description 06/04/2023 7:20 AM EDT Office Visit Family Medicine [address] [place] [address] Virgil Nolasco MD [address] [place] [address] [place] [address] 07/15/2023 9:00 AM EDT Office Visit Ophthalmology, [facility] [address] [facility] [place] [address] Derik Welch, DO [address] [place] [address] [place] [address] Scheduled Procedures Name Priority Associated Diagnoses Date/Ti [...] 03/22/2021, Additional history exists Colonoscopy 04/11/2030 04/11/2020, 02/0 03/2020, 01/23/2019, Additional history exists Colorectal Cancer [...] this encounter Medical Devices Implanted Type Area Char Filter Tank Tender Head Device Identifier Shelf Expiration Date Model / Serial / Lot Lens Intraoc 20.0 - [id number] - [id number] Implanted:Qty: 1 on 03/17/2019 by Nicolas Bryant MD at OR [facility] Right: Eye [employer] 10/09/2023 [id number] / [id number] / Lens Intraoc 20.0 - [id number] - [id number] Implanted:Qty: 1 on 03/24/2019 by Nicolas Bryant MD at OR [facility] Left: Eye [employer]OM[employer] 11/09/2023 [id number] / [id number] / documented as of this encounter Visit Diagnoses Diagnosis Type 2 diabetes mellitus with hemoglobin A1c goal of less than 7.0% (HCC) documented in this encounter Advance Directives Latest Code Status [...] and were consensually agreed upon. Care Teams Stripper Cutter Machine Relationship Specialty Start Date End Date Virgil Nolasco MD [address] [place] [address] [place] [address] PCP - General Family Medicine 03/22/20 documented as of this encounter
--- OUTSIDE RECORDS SUMMARY | 2023-05-14 10:40 | External Medical Summary | Summary of Care ---
Author Name Unknown Organization [facility] Address [address] [facility] [address] Phone [phone] Care Team Providers Care Learning Administrator Name Role Phone Virgil Nolasco MD Primary Care Provide r Reason for Visit * Reason Comments eRx-Medication Refill Encounter Details Date Type Department Care Team (Late st Contact Info) Description 04/07/2023 Refill Family Medicine [address] [phone] Virgil Nolasco MD [address] [place] [address] [place] [address] Dyslipidemia, goal LDL below 100 Allergies Active Allergy Reactions Criticality Noted Date Comments Lisinopril Cough Low 08/21/2011 Sulfa Antibiotics 01/25/2011 documented as of this encounter (statuses as of 04/08/2023) Medications Medication Sig Dispensed Refills Start Date [...] Oral Tablet Take by mouth. 0 Active metFORMIN HCl ER 750 MG Oral Tablet Extended Release 24 Hour (Glucophage XR)Indications:Ty pe 2 diabetes mellitus with hemoglobin A1c goal of less than 7.0% (HCC) TAKE TWO TABLETS BY MOUTH EVERY DAY 180 Tablet 0 10/12/2022 Active Atorvastatin Calcium 10 MG Oral Tablet [...] EVERY MORNING 90 Tablet 2 04/08/2023 Active Ezetimibe 10 MG Oral Tablet (Zetia)Indication s:Dyslipidemia, goal LDL below 100 TAKE 1 TABLET IN THE MORNING 90 Tablet 1 06/13/2022 4 Discontinued documented as of this encounter (statuses as of 04/08/2023) Active Problems Problem Noted Date Diagnosed Date [...] as of this encounter (statuses as of 04/08/2023) Resolved Problems Problem Noted Date Diagnosed Date [...] as of this encounter (statuses as of 04/08/2023) Immunizations Name Administration Dates Next Due COVID-19 mRNA, LNP-s, No Pre serve, 2-Dose Series (Moderna) 07/28/2020,06/29/2020 Hepatitis B, 20+ yrs 11/03/2007,05/05/2007,03/31 Meningococcal Conjugate Vacc ine (Menactra/Menveo) 03/19/2007 PPD 04/25/2020,10/10/2009,03/19/2007 Pneumococcal Conjugate Vacci ne, 20-valent ([id number]) 03/27/2023 Pneumococcal Polysaccharide PPV23 (Pneumovax) 04/22/2006 Seasonal [...] encounter Miscellaneous Notes * Telephone Encounter - Jerry Raphael [facility] - 04/08/2023 1:01 PM EST Signed Prescriptions: Disp Refills Ezetimibe 10 MG Oral Tablet (Zetia) 90 Tab*2 Sig: TAKE ONE TABLET BY MOUTH EVERY MORNINGAuthorizing Provider: VIRGIL NOLASCOOrderbrayan User: JERRY RAPHAEL documented in this encounter Plan of Treatment Upcoming Encounters Date Type Department Care Team (Late st Contact Info) Description 06/04/2023 7:20 AM EDT Office Visit Family Medicine [address] [place] [phone] Virgil Nolasco MD [address] [place] [address] [place] [address] Scheduled Procedures Name Priority Associated Diagnoses Date/Ti [...] this encounter Medical Devices Implanted Type Area Bologna Maker Device Identifier Shelf Expiration Date Model / Serial / Lot Lens Intraoc 20.0 - [id number] - [id number] Implanted:Qty: 1 on 03/17/2019 by Nicolas Bryant MD at OR [facility] Right: Eye [employer] 10/09/2023 [id number] / [id number] / Lens Intraoc 20.0 - [id number] - [id number] Implanted:Qty: 1 on 03/24/2019 by Nicolas Bryant MD at OR [facility] Left: Eye [employer]CH [employer]OM[employer] 11/09/2023 [id number] / [id number] / documented as of this encounter Visit Diagnoses Diagnosis Dyslipidemia, goal LDL below 100 Other and unspecified hyperlipidemia documented in this encounter Advance Directives Latest [...] and were consensually agreed upon. Care Teams Learning Administrator Relationship Specialty Start Date End Date Virgil Nolasco MD [address] [place] [address] [place] [phone] PCP - General Family Medicine 03/22/20 documented as of this encounter
--- OUTSIDE RECORDS SUMMARY | 2023-05-14 10:41 | External Medical Summary | Summary of Care ---
Author Name Unknown Organization [facility] Address [address] [facility] [address] Phone [phone] Care Team Providers Care Funeral Arrangement Director Name Role Phone Virgil Nolasco MD Primary Care Provide r Reason for Visit * Reason Comments eRx-Medication Refill Encounter Details Date Type Department Care Team (Late st Contact Info) Description 03/28/2023 Refill Family Medicine [address] [phone] Virgil Nolasco MD [address] [place] [address] [place] [address] Type 2 diabetes mellitus with hemoglobin A1c goal of less than 7.0% ([facility]); HTN, goal below 140/90; Dyslipidemia, goal LDL below 100 Allergies Active Allergy Reactions Criticality Noted Date Comments Lisinopril Cough Low 08/21/2011 Sulfa Antibiotics 01/25/2011 documented as of this encounter (statuses as of 03/29/2023) Medications Medication Sig Dispensed Refills Start Date [...] Oral Tablet Take by mouth. 0 Active Ezetimibe 10 MG Oral Tablet (Zetia)Indication s:Dyslipidemia, goal LDL below 100 TAKE 1 TABLET IN THE MORNING 90 Tablet 1 06/13/2022 Active metFORMIN HCl ER 750 MG Oral [...] EVERY DAY 90 Tablet 1 03/29/2023 Active Glimepiride 4 MG Oral Tablet (Amaryl)Indicatio ns:Type 2 diabetes mellitus with hemoglobin A1c goal of less than 7.0% (HCC) Take by mouth 1 Tablet daily before breakfast. 90 Tablet 1 09/11/2022 4 Discontinued hydroCHLOROthiazi de 25 MG Oral Tablet (Hydrodiuril)Rosy cations:HTN, goal below 140/90 TAKE ONE TABLET BY MOUTH EVERY DAY 90 Tablet 1 09/11/2022 4 Discontinued documented as of this encounter (statuses as of 03/29/2023) Active Problems Problem Noted Date Diagnosed Date [...] as of this encounter (statuses as of 03/29/2023) Resolved Problems Problem Noted Date Diagnosed Date [...] Overview: Ca 11.5 Calculus of kidney 01/01/2005 Asthma with severity to be determined 03/27/2004 08/24/2010 Overview: ICD-10 update of inactive term TIA (transient ischemic attack) 03/17/2004 10/08/2016 HYPERCALCEMIA 10/13/2008 Other seborrheic keratosis 1 04/18/2009 Overview: back Kidney disease, chronic, sta ge II (GFR 60-89 ml/min) 04/11/2017 Hyperparathyroidism, primary 04/11/2017 Non-toxic multinodular goiter 09/09/2020 documented as of this encounter (statuses as of 03/29/2023) Immunizations Name Administration Dates Next Due COVID-19 mRNA, LNP-s, No Pre serve, 2-Dose Series (Moderna) 07/28/2020,06/29/2020 Hepatitis B, 20+ yrs 11/03/2007,05/05/2007,03/31 Meningococcal Conjugate Vacc ine (Menactra/Menveo) 03/19/2007 PPD 04/25/2020,10/10/2009,03/19/2007 Pneumococcal Conjugate Vacci ne, 20-valent ([id number]) 03/27/2023 Pneumococcal Polysaccharide PPV23 (Pneumovax) 04/22/2006 Seasonal [...] encounter Miscellaneous Notes * Telephone Encounter - Azra [facility] - 03/29/2023 10:52 AM ESTSigned Prescriptions: Disp Refills Glimepiride 4 MG Oral Tablet (Amaryl) 90 Tab*1 Sig: TAKE ONE TABLET BY MOUTH EVERY DAY BEFORE BREAKFASTAuthorizing Provider: Vaughn NOLASCO User: AZRA MCLEOD hydroCHLOROthiazide 25 MG Oral Tablet (Hyd*90 Tab*1 Sig: TAKE ONE TABLET BY MOUTHEVERY DAYAuthorizing Provider: Vaughn NOLASCO User: AZRA MCLEODefused Prescriptions: Disp Refills Atorvastatin Calcium 10 MG Oral Tablet (Li*90 Tab*1 Sig: TAKE ONE TABLET BY MOUTH EVERY DAYRefused By: AZRA MCLEODeason for Refusal: Duplicate RequestReason for Refusal Comment: 90+3 sent 12/19/22 documented in this encounter Plan of Treatment Upcoming Encounters Date Type Department Care Team (Late st Contact Info) Description 06/04/2023 7:20 AM EDT Office Visit Family Medicine [address] [place] [phone] Virgil Nolasco MD [address] [place] [address] [place] [address] Scheduled Procedures Name Priority Associated Diagnoses Date/Ti [...] this encounter Medical Devices Implanted Type Area Warpman Device Identifier Shelf Expiration Date Model / Serial / Lot Lens Intraoc 20.0 - [id number] - [id number] Implanted:Qty: 1 on 03/17/2019 by Nicolas Bryant MD at OR [facility] Right: Eye [employer]OM[employer] 10/09/2023 [id number] / [id number] / Lens Intraoc 20.0 - [id number] - [id number] Implanted:Qty: 1 on 03/24/2019 by Nicolas Bryant MD at OR [facility] Left: Eye BA[employer]CH [employer] LOMB 11/09/2023 [id number] / [id number] / documented as of this encounter Visit Diagnoses Diagnosis Type 2 diabetes mellitus with hemoglobin A1c goal of less than 7.0% (HCC) HTN, goal below 140/90 Unspecified essential hypertension Dyslipidemia, goal LDL below 100 Other and [...] and were consensually agreed upon. Care Teams Funeral Arrangement Director Relationship Specialty Start Date End Date Virgil Nolasco MD [address] [place] [address] [place] [address] PCP - General Family Medicine 03/22/20 documented as of this encounter
--- OUTSIDE RECORDS SUMMARY | 2023-05-14 10:41 | External Medical Summary | Summary of Care ---
Author Name Unknown Organization [facility] Address [address] [facility] [address] Phone [phone] Care Team Providers Care Data Collector Name Role Phone Virgil Nolasco MD Primary Care Provide r Reason for Visit * Reason Comments Outpatient Testing Encounter Details Date Type Department Care Team (Late st Contact Info) Description 01/21/2023 8:10 AM EST Laboratory Laboratory [address] [place] [address] [place] [address] Dysuria Allergies Active Allergy Reactions Criticality Noted Date Comments Lisinopril Cough Low 08/21/2011 Sulfa Antibiotics 01/25/2011 documented as of this encounter (statuses as of 01/21/2023) Medications Medication Sig Dispensed Refills Start Date [...] Polyethylene Glycol 3350 17 GM/SCOOP Oral Powder (MiraLax)Indications :Slow transit constipation Take 17 g by mouth daily. Dissolve one heaping tablespoon in 8 ounces of water or juice. 765 g 5 04/01/2020 Active Multivitamin Adults 50+ Oral Tablet Take by mouth. 0 Activ e Ezetimibe 10 MG Oral Tablet (Zetia)Indications:D yslipidemia, goal LDL below 100 TAKE 1 TABLET IN THE MORNING 90 Tablet 1 06/13/2022 Active Glimepiride 4 MG Oral Tablet (Amaryl)Indications: Type 2 diabetes mellitus with hemoglobin A1c goal of less than 7.0% (HCC) Take by mouth 1 Tablet daily before breakfast. 90 Tablet 1 09/11/2022 Active hydroCHLOROthiazide 25 MG Oral Tablet (Hydrodiuril)Indicat ions:HTN, goal below 140/90 TAKE ONE TABLET BY MOUTH EVERY DAY 90 Tablet 1 09/11/2022 Active metFORMIN HCl ER 750 MG Oral Tablet Extended Release 24 Hour (Glucophage XR)Indications:Type 2 diabetes mellitus with hemoglobin A1c goal of less than 7.0% (HCC) TAKE TWO TABLETS BY MOUTH EVERY DAY 180 Tablet 0 10/12/2022 Active Atorvastatin Calcium 10 MG Oral Tablet (Lipitor)Indications :Dyslipidemia, goal LDL below 100 TAKE ONE TABLET BY MOUTH EVERY DAY 90 Tablet 3 12/19/2022 Active FreeStyle LancetsIndications:T ype 2 diabetes mellitus with hemoglobin A1c goal of less than 7.0% (HCC) Test blood sugar twice daily as directed; dx E11.9 200 Each 3 01/09/2023 Active FreeStyle Lite Test In Vitro Strip (Glucose Blood)Indications:Ty pe 2 diabetes mellitus with hemoglobin A1c goal of less than 7.0% (HCC) Test blood sugar twice daily as directed; dx E11.9 200 Strip 3 01/09/2023 Active Empagliflozin 25 MG Oral Tablet (Jardiance)Indicatio ns:Type 2 diabetes mellitus with hemoglobin A1c goal of less than 7.0% (HCC) TAKE 1 TABLET IN THE MORNING 90 Tablet 3 01/17/2023 Active documented as of this encounter (statuses as of 01/21/2023) Active Problems Problem Noted Date Diagnosed Date History of primary hyperparathyroidism S/P parathyroidectomy 09/09/2020 Slow transit constipation 04/12/2016 Degenerative disc disease, cervical 03/15/2016 HTN, goal below 140/90 08/17/2014 Vitamin D deficiency 05/26/2009 Overview: Vitamin D 20 Type 2 diabetes mellitus wit h hemoglobin A1c goal of less than 7.0% 01/06/2009 Overview: Per Diabetes Taxonomy. ICD-10 update of inactive term ADVANCE DIRECTIVE INFORMATION 01/01/2005 Overview: No, Advance Directive brochure given to patient. Calculus of kidney 01/01/2005 Dyslipidemia, goal LDL below 100 documented as of this encounter (statuses as of 01/21/2023) Resolved Problems Problem Noted Date Diagnosed Date [...] 08/10/2009 HYPERCALCEMIA 07/30/2008 02/15/2010 Overview: Ca 11.5 Asthma with severity to be determined 03/27/2004 08/24/2010 Overview: ICD-10 update of inactive term TIA (transient ischemic attack) 03/17/2004 10/08/2016 HYPERCALCEMIA 10/13/2008 Other seborrheic keratosis 1 04/18/2009 Overview: back Kidney disease, chronic, sta ge II (GFR 60-89 ml/min) 04/11/2017 Hyperparathyroidism, primary 04/11/2017 Non-toxic multinodular goiter 09/09/2020 documented as of this encounter (statuses as of 01/21/2023) Immunizations Name Administration Dates Next Due COVID-19 mRNA, LNP-s, No Pre serve, 2-Dose Series (Moderna) 07/28/2020,06/29/2020 Hepatitis B, 20+ yrs 11/03/2007,05/05/2007,03/31 Meningococcal Conjugate Vacc ine (Menactra/Menveo) 03/19/2007 PPD 04/25/2020,10/10/2009,03/19/2007 Pneumococcal Polysaccharide PPV23 (Pneumovax) 04/22/2006 SEASONAL INFLUENZA, PF, 6 M & Above, IM , (FLULAVAL or FLUZONE) 12/15/2021,12/27/2020,12/15/2019,01/03,01/05/2017 Seasonal Influenza, Quadriva lent Hd (Fluzone [...] on file documented as of this encounter Plan of Treatment Upcoming Encounters Date Type Department Care Team (Late st Contact Info) Description 02/21/2023 10:30 AM EST Imaging Radiology, [place] [id number] [facility] [place] [address] 03/18/2023 10:00 AM EST Office Visit Family Medicine [address] [place] [phone] Virgil Nolasco MD [address] [place] [address] [place] [address] Pending Results Name Type Priority Associated Diagnoses Date /Time URINALYSIS, REFLEX TO MICROSCOPIC Lab Routine Dysuria 01/21/2023 8:19 AM EST Scheduled Procedures Name Priority Associated Diagnoses Date/Ti me COLONOSCOPY FLEXIBLE PROXIMAL DIAGNOSTIC Recall Screen for colon cancer Health Maintenance Due Date Last Done Comments Cologuard 2002 Fecal Occult Blood Test 2002 Sigmoidoscopy 2002 Pneumococcal Vaccine: 65+ Years (2 - PCV) 04/22/2007 04/22/2006 Depression Screening 12/16/2020 12/17/2019 COVID-19 Vaccine ( season) 2022 07/28/2020, 06/29/2020 DXA Scan 2022 05/24/2010 Diabetic Foot Exam 03/07/2023 03/07/2022, 0 03/20/2021, 03/18/2020, Additional history exists Diabetic Eye Exam 04/16/2023 04/16/2022, , 04/25/2020, Additional history exists HbA1c 05/31/2023 11/30/2022, 06/10, 03/07/2022, Additional history exists Mammogram 06/13/2023 06/12/2022, 05/10, 06/02/2020, Additional history exists Albumin/Creatinine Ratio 09/06/2023 023, 09/01/2021, 03/22/2021, Additional history exists B-12 12/01/2023 11/30/2022, 08/10, 03/15/2020, Additional history exists GFR 12/01/2023 11/30/2022, 02/09, 12/18/2021, Additional history exists DTaP,Tdap,and Td Vaccines (3 - Td or Tdap) 09/04/2027 09/03/2017, 03/19/2007 Lipid Panel 12/01/2027 11/30/2022, 08/10, 03/22/2021, Additional history exists Colonoscopy 04/11/2030 04/11/2020, 02/03/2020, 01/23/2019, Additional history exists Colorectal Cancer Screening 04/11/2030 MENINGOCOCCAL (MENACTRA/MENVEO) Aged Out 03/19/2007 No longer eligible based on patient's age to complete this topic Hepatitis B Completed 11/03/2007, 04/12, 03/31/2007 Zoster Vaccines Completed 04/28/2019, 03/06/2019 Cervical Cancer Screening Discontinued Pap Smear Discontinued 12/23/2019, 09/10, 10/08/2016, Additional history exists Influenza Vaccine (FLU shot) Completed 12/18/2022, 12/15/2021, 12/27/2020, Additional history exists GARDASIL-HPV IMMUNIZATION SERIES Aged Out No longer eligible based on patient's age to complete this topic HPV/Co-Test Discontinued documented as of this encounter Medical Devices Implanted Type Area Folder Machine Device Identifier Shelf Expiration Date Model / Serial / Lot Lens Intraoc 20.0 - [id number] - [id number] Implanted:Qty: 1 on 03/17/2019 by Nicolas Bryant MD at [facility] Right: Eye [employer] 10/09/2023 [id number] / [id number] / Lens Intraoc 20.0 - [id number] - [id number] Implanted:Qty: 1 on 03/24/2019 by Nicolas Bryant MD at OR [facility] Left: Eye [employer]CH [employer]OM[employer] 11/09/2023 [id number] / [id number] / documented as of this encounter Visit Diagnoses Diagnosis Dysuria documented in this encounter Advance Directives Latest [...] and were consensually agreed upon. Care Teams Data Collector Relationship Specialty Start Date End Date Virgil Nolasco MD [address] [place] [address] [place] [address] PCP - General Family Medicine 03/22/20 documented as of this encounter
--- OUTSIDE RECORDS SUMMARY | 2023-05-14 10:41 | External Medical Summary | Summary of Care ---
Author Name Unknown Organization [facility] Address [address] [place] [address] Phone [phone] Care Team Providers Care Roof Truss Machine Tender Name Role Phone Virgil Nolasco MD Primary Care Provide r Reason for Visit * Reason Onset Date Comments Medication Refill 01/09/2023 Encounter Details Date Type Department Care Team (Late st Contact Info) Description 01/09/2023 Refill Family Medicine [address] [phone] Virgil Nolasco MD [address] [place] [address] [place] [phone] Type 2 diabetes mellitus with hemoglobin A1c goal of less than 7.0% ([facility]) Allergies Active Allergy Reactions Criticality Noted Date Comments Lisinopril Cough Low 08/21/2011 Sulfa Antibiotics 01/25/2011 documented as of this encounter (statuses as of 01/09/2023) Medications Medication Sig Dispensed Refills Start Date [...] Polyethylene Glycol 3350 17 GM/SCOOP Oral Powder (MiraLax)Indicatio ns:Slow transit constipation Take 17 g by mouth daily. Dissolve one heaping tablespoon in 8 ounces of water or juice. 765 g 5 04/01/2020 Active Multivitamin Adults 50+ Oral Tablet Take by mouth. 0 Active Ezetimibe 10 MG Oral Tablet (Zetia)Indications :Dyslipidemia, goal LDL below 100 TAKE 1 TABLET IN THE MORNING 90 Tablet 1 06/13/2022 Active Empagliflozin 25 MG Oral Tablet (Jardiance)Indicat ions:Type 2 diabetes mellitus with hemoglobin A1c goal of less than 7.0% (HCC) TAKE 1 TABLET IN THE MORNING 90 Tablet 1 08/02/2022 Active Glimepiride 4 MG Oral Tablet (Amaryl)Indication s:Type 2 diabetes mellitus with hemoglobin A1c goal of less than 7.0% (HCC) Take by mouth 1 Tablet daily before breakfast. 90 Tablet 1 09/11/2022 Active hydroCHLOROthiazid e 25 MG Oral Tablet (Hydrodiuril)Indic ations:HTN, goal below 140/90 TAKE ONE TABLET BY MOUTH EVERY DAY 90 Tablet 1 09/11/2022 Active metFORMIN HCl ER 750 MG Oral Tablet Extended Release 24 Hour (Glucophage XR)Indications:Typ e 2 diabetes mellitus with hemoglobin A1c goal of less than 7.0% (HCC) TAKE TWO TABLETS BY MOUTH EVERY DAY 180 Tablet 0 10/12/2022 Active Atorvastatin Calcium 10 MG Oral Tablet (Lipitor)Indicatio ns:Dyslipidemia, goal LDL below 100 TAKE ONE TABLET BY MOUTH EVERY DAY 90 Tablet 3 12/19/2022 Active FreeStyle LancetsIndications :Type 2 diabetes mellitus with hemoglobin A1c goal of less than 7.0% (HCC) Test blood sugar twice daily as directed; dx E11.9 200 Each 3 01/09/2023 Active FreeStyle Lite Test In Vitro Strip (Glucose Blood)Indications: Type 2 diabetes mellitus with hemoglobin A1c goal of less than 7.0% (HCC) Test blood sugar twice daily as directed; dx E11.9 200 Strip 3 01/09/2023 Active FreeStyle LancetsIndications :Type 2 diabetes mellitus with hemoglobin A1c goal of less than 7.0% (HCC) Test blood sugar twice daily as directed; dx E11.9 200 Each 3 12/15/2021 3 Discontinue d(Refill) FreeStyle Lite Test In Vitro Strip (Glucose Blood)Indications: Type 2 diabetes mellitus with hemoglobin A1c goal of less than 7.0% ([facility]) Test blood sugar twice daily as directed; dx E11.9 200 Strip 3 12/15/2021 3 Discontinue d(Refill) documented as of this encounter (statuses as of 01/09/2023) Active Problems Problem Noted Date Diagnosed Date History of primary hyperparathyroidism 1 S/P parathyroidectomy [...] as of this encounter (statuses as of 01/09/2023) Resolved Problems Problem Noted Date Diagnosed Date [...] as of this encounter (statuses as of 01/09/2023) Immunizations Name Administration Dates Next Due COVID-19 [...] = 0.6 oz pur e alcohol) ocass Sex and Gender Information Value Date Recorded Sex Assigned at Not on file Gender Identity Not on file Sexual Orientation Not on file Job Start Date Occupation Industry Not on file Not on file Not on file documented as of this encounter Miscellaneous Notes * Telephone Encounter - Zohreh Angel RPh - 01/09/2023 5:33 PM EDT Signed Prescriptions: Disp Refills FreeStyle Lancets 200 Ea*3 Sig: Test blood sugar twice daily as directed; dx E11.9Authorizing Provider: Vaughn NOLASCO User: ZOHREH ANGEL FreeStyle Lite Test In Vitro Strip (Glucos*200 St*3 Sig: Test blood sugar twice daily as directed; dx E11.9Authorizing Provider: Vaughn NOLASCO User: ZOHREH ANGEL Electronically signed by Zohreh Angel [facility] at 01/09/2023 5:33 PM EDT documented in this encounter Plan of Treatment Upcoming Encounters Date Type Department Care Team (Late st Contact Info) Description 03/18/2023 10:00 AM EST Office Visit Family Medicine Jeni Marin [address] [place] [address] [place] [phone] Virgil Nolasco MD [address] [place] [address] [place] [address] Scheduled Procedures Name Priority Associated Diagnoses Date/Ti me COLONOSCOPY FLEXIBLE PROXIMAL DIAGNOSTIC Recall Screen for colon cancer Health Maintenance Due Date Last Done Comments Cologuard 2002 Fecal Occult Blood Test 2002 Sigmoidoscopy 2002 Pneumococcal Vaccine: 65+ Years (2 - PCV) 04/22/2007 04/22/2006 Depression Screening 12/16/2020 12/17/2019 COVID-19 Vaccine (3 - 2022- season) 2022 07/28/2020, 06/29/2020 DXA Scan 2022 [...] this encounter Medical Devices Implanted Type Area Morgue Technician Device Identifier Shelf Expiration Date Model / Serial / Lot Lens Intraoc 20.0 - [id number] - [id number] Implanted:Qty: 1 on 03/17/2019 by Nicolas Bryant MD at OR [facility] Right: Eye [employer] 10/09/2023 [id number] / [id number] / Lens Intraoc 20.0 - [id number] - [id number] Implanted:Qty: 1 on 03/24/2019 by Nicolas Bryant MD at OR [facility] Left: Eye [employer]CH [employer]OMB 11/09/2023 [id number] / [id number] / documented as of this encounter Visit [...] and were consensually agreed upon. Care Teams Roof Truss Machine Tender Relationship Specialty Start Date End Date Virgil Nolasco MD [address] [place] [address] [place] [address] PCP - General Family Medicine 03/22/20 documented as of this encounter
--- OUTSIDE RECORDS SUMMARY | 2023-05-14 10:41 | External Medical Summary | Summary of Care ---
Author Name Unknown Organization [facility] Address [address] [facility] [address] Phone [phone] Care Team Providers Care Basket Assembler Name Role Phone Virgil Nolasco MD Primary Care Provide r Reason for Visit * Reason Onset Date Comments Scan To Read 03/27/2023 Diabetic eye cam era Encounter Details Date Type Department Care Team (Late st Contact Info) Description 03/27/2023 Telephone Family Medicine [address] [phone] Virgil Nolasco MD [address] [place] [address] [place] [address] Scan To Read (Diabetic eye camera) Allergies Active Allergy Reactions Criticality Noted Date [...] kidney stones 03/25/2023 History of primary hyperparathyroidism S/P parathyroidectomy 09/09/2020 [...] PPD 04/25/2020,10/10/2009,03/19/2007 Pneumococcal Conjugate Vacci ne, 20-valent ([id number]) 03/27/2023 Pneumococcal Polysaccharide PPV23 (Pneumovax) 04/22/2006 Seasonal [...] encounter Miscellaneous Notes * Telephone Encounter - Sampson Jean MD - 03/28/2023 7:27 AM EST Retinal Scan Imaging Larissa Ayala [id number] Retinal Scan Interpretation: There is no retinopathy in both eyes Diabetes Retinal Imaging Care Plan: The retinal scan results are normal - I will forward this encounter to the Ophthalmology DM Letter Pool [[id number]], they will send a normal retinal scan letter to the patient, and the patient will be seen back for a yearly scan. Sampson Jean MD 03/28/2023 7:27 AM * Telephone Encounter - Daylin Richter CMA - 03/27/2023 4:36 PM EST A Diabetic Telemed Eye image was taken and requires your interpretation for Dr Nolasco. Please check your inbasket for image. Patient prefers to be [facility] at [facility] if a follow-up appointment is needed. documented in this encounter Plan of Treatment Upcoming Encounters Date Type Department Care Team (Late st Contact Info) Description 06/04/2023 7:20 AM EDT Office Visit Family Medicine [address] [place] [phone] Virgil Nolasco MD [address] [place] [address] [place] [address] Scheduled Procedures Name Priority Associated Diagnoses Date/Ti [...] this encounter Medical Devices Implanted Type Area Hand Patcher Device Identifier Shelf Expiration Date Model / Serial / Lot Lens Intraoc 20.0 - [id number] - [id number] Implanted:Qty: 1 on 03/17/2019 by Nicolas Bryant MD at OR [facility] Right: Eye [employer]OM[employer] 10/09/2023 [id number] / [id number] / Lens Intraoc 20.0 - [id number] - [id number] Implanted:Qty: 1 on 03/24/2019 by Nicolas Bryant MD at OR [facility] Left: Eye BA[employer]CH [employer] LOMB 11/09/2023 [id number] / [id number] / documented as of this encounter Advance [...] and were consensually agreed upon. Care Teams Basket Assembler Relationship Specialty Start Date End Date Virgil Nolasco MD [address] [place] [address] [place] [address] PCP - General Family Medicine 03/22/20 documented as of this encounter
--- OUTSIDE RECORDS SUMMARY | 2023-05-14 10:41 | External Medical Summary | Summary of Care ---
Author Name Unknown Organization [facility] Address [address] [facility] [address] Phone [phone] Care Team Providers Care Chip Crusher Operator Name Role Phone Virgil Nolasco MD Primary Care Provide r Reason for Visit * Reason Comments eRx-Medication Refill Encounter Details Date Type Department Care Team Description 12/18/2022 Refill Family Medicine [address] [place] [address] Virgil Nolasco MD [address] [place] [address] [place] [address] Dyslipidemia, goal LDL below 100 Allergies Active Allergy Reactions Severity Noted Date Comments Lisinopril Cough Low 08/21/2011 Sulfa Antibiotics 01/25/2011 documented as of this encounter (statuses as of 12/19/2022) Medications Medication Sig Dispensed Refills Start Date [...] Oral Tablet Take by mouth. 0 Active FreeStyle LancetsIndication s:Type 2 diabetes mellitus with hemoglobin A1c goal of less than 7.0% (HCC) Test blood sugar twice daily as directed; dx E11.9 200 Each 3 12/15/2021 Active FreeStyle Lite Test In Vitro Strip (Glucose Blood)Indications :Type 2 diabetes mellitus with hemoglobin A1c goal of less than 7.0% (HCC) Test blood sugar twice daily as directed; dx E11.9 200 Strip 3 12/15/2021 Active Ezetimibe 10 MG Oral Tablet (Zetia)Indication s:Dyslipidemia, goal LDL below 100 TAKE 1 TABLET IN THE MORNING 90 Tablet 1 06/13/2022 Active Empagliflozin 25 MG Oral Tablet (Jardiance)Indica tions:Type 2 diabetes mellitus with hemoglobin A1c goal of less than 7.0% (HCC) TAKE 1 TABLET IN THE MORNING 90 Tablet 1 08/02/2022 Active Glimepiride 4 MG Oral Tablet (Amaryl)Indicatio ns:Type 2 diabetes mellitus with hemoglobin A1c goal of less than 7.0% (HCC) Take by mouth 1 Tablet daily before breakfast. 90 Tablet 1 09/11/2022 Active hydroCHLOROthiazi de 25 MG Oral Tablet [...] EVERY DAY 90 Tablet 3 12/19/2022 Active Atorvastatin Calcium 10 MG Oral Tablet (Lipitor)Indicati ons:Dyslipidemia, goal LDL below 100 Take 1 Tablet by mouth daily. 90 Tablet 3 11/27/2021 3 Discontinued documented as of this encounter (statuses as of 12/19/2022) Active Problems Problem Noted Date History of primary hyperparathyroidism 0 09/09/2020 S/P parathyroidectomy 09/09/2020 Slow transit constipation 04/12/2016 Degenerative disc disease, cervical 07/2016 HTN, goal below 140/90 08/17/2014 Vitamin D deficiency 05/26/2009 Overview: Vitamin D 20 Type 2 diabetes mellitus with hemoglobin A1c goal of less than 7.0% 01/06/2009 Overview: Per Diabetes Taxonomy. ICD-10 update of inactive term ADVANCE DIRECTIVE INFORMATION 01/01/2005 Overview: No, Advance Directive brochure given to patient. Calculus of kidney 01/01/2005 Dyslipidemia, goal LDL below 100 documented as of this encounter (statuses as of 12/19/2022) Resolved Problems Problem Noted Date Resolved Date DM type 2 causing eye disease 07/23/2013 Overview: mild Diabetes mellitus with background retinopathy 10/06/2015 Overweight (BMI 25.0-29.9) 03/17/201304/11 Acquired renal cyst of right kidney 11/22/2012 12/24/2013 Severe obesity with body mas s index (BMI) of 35.0 to 39.9 with serious comorbidity 10/20/2012 03/17/2013 Overview: ICD-10 update of inactive diagnosis HTN, goal below 140/80 10/29/2011 5 Overview: Per HTN Protocol #27. HTN, goal below 130/80 02/02/2009 2 Dyslipidemia, goal LDL below 130 02/02/2009 08/10/2009 HYPERCALCEMIA 07/30/2008 02/15/2010 Overview: Ca 11.5 Asthma with severity to be determined 03/27/2004 08/24/2010 Overview: ICD-10 update of inactive term TIA (transient ischemic attack) 03/17/2004 10/08/2016 HYPERCALCEMIA 10/13/2008 Other seborrheic keratosis 02/15 Overview: back Kidney disease, chronic, stage II (GFR 60-89 ml/ min) 04/11/2017 Hyperparathyroidism, primary 03/2017 Non-toxic multinodular goiter documented as of this encounter (statuses as of 12/19/2022) Immunizations Name Administration Dates Next Due COVID-19 mRNA, LNP-s, No Pre serve, 2-Dose Series (Moderna) 07/28/2020,06/29/2020 Hepatitis B, 20+ yrs 11/03/2007,05/05/2007,03/31 Meningococcal Conjugate Vacc ine (Menactra/Menveo) 03/19/2007 PPD 04/25/2020,10/10/2009,03/19/2007 Pneumococcal Polysaccharide PPV23 (Pneumovax) 04/22/2006 SEASONAL INFLUENZA, PF, 6 M & Above, IM , (FLULAVAL or FLUZONE) 12/15/2021,12/27/2020,12/15/2019,01/03,01/05/2017 Seasonal Influenza, Quadriva lent, No Preserve, IM [...] 0.6 oz pur e alcohol) ocass Sex Assigned at Date Recorded Not on file Job Start Date Occupation Industry Not on file Not on file Not on file documented as of this encounter Miscellaneous Notes * Telephone Encounter - Nikki Pollard, [facility] - 12/19/2022 10:34 AM EDT Signed Prescriptions: Disp Refills Atorvastatin Calcium 10 MG Oral Tablet (Li*90 Tab*3 Sig: TAKE ONE TABLET BY MOUTH EVERY DAYAuthorizing Provider: Vaughn NOLASCO User: NIKKI POLLARD documented in this encounter Plan of Treatment Upcoming Encounters Date Type Specialty Care Team Description 03/18/2023 Office Visit Family Medicine Virgil Nolasco MD [address] [place] [address] [place] [address] Scheduled Procedures Name Priority Associated Diagnoses Date/Ti me COLONOSCOPY FLEXIBLE PROXIMAL DIAGNOSTIC Recall Screen for colon cancer Health Maintenance Due Date Last Done Comments Cologuard 2002 Fecal Occult Blood Test 2002 Sigmoidoscopy 2002 Pneumococcal Vaccine: 65+ Years (2 - PCV) 04/22/2007 04/22/2006 Depression Screening 12/16/2020 12/17/2019 COVID-19 Vaccine ( season) 2022 07/28/2020, 06/29/2020 Influenza Vaccine (FLU shot) (#1) 2022 12/15/2021, 12/27/2020, 12/15/2019, Additional history exists DXA Scan 2022 05/24/2010 Diabetic Foot Exam 03/07/2023 03/07/2022, 0 03/20/2021, 03/18/2020, Additional history exists DIABETES-EYE EXAM 04/16/2023 04/16/2022, , 04/25/2020, Additional history exists HbA1c 05/31/2023 11/30/2022, 04/2 07/2022, 03/07/2022, Additional history exists Mammogram 06/13/2023 06/12/2022, [...] Discontinued 12/23/2019, 09/10, 10/08/2016, Additional history exists GARDASIL-HPV IMMUNIZATION SERIES Aged Out No longer eligible based on patient's age to complete this topic HPV/Co-Test Discontinued documented as of this encounter Medical Devices Implanted Type Area Oral Therapist Device Identifier Shelf Expiration Date Model / Serial / Lot Lens Intraoc 20.0 - [id number] - [id number] Implanted:Qty: 1 on 03/17/2019 by Nicolas Bryant MD at OR [facility] Right: Eye [employer] 10/09/2023 [id number] / [id number] / Lens Intraoc 20.0 - [id number] - [id number] Implanted:Qty: 1 on 03/24/2019 by Nicolas Bryant MD at OR [facility] Left: Eye [employer]CH [employer]OMB 11/09/2023 [id number] / [id number] / documented as of this encounter Visit [...] and were consensually agreed upon. Care Teams Chip Crusher Operator Relationship Specialty Start Date End Date Virgil Nolasco MD [address] [place] [address] [place] [address] PCP - General Family Medicine 03/22/20 documented as of this encounter
--- OUTSIDE RECORDS SUMMARY | 2023-05-14 10:41 | External Medical Summary ---
Author Name Unknown Address Unknown Organization [id number]:[facility] [place] [address] [facility] [address] Laboratory Report Ordering Provider Test Date Status CHANDLER GILLESPIE 01/21/2023 08:19:03 Final Observation Date Value Abnormality Reference (Units ) Status Color of Urine by Auto 01/21/2023 08:19:03 Light Yellow Colorless, Light Yellow, Yellow, Dark Yellow Final Clarity, Urine 01/21/2023 08:19:03 Slightly Cloudy Abnormal Clear Final Glucose [Mass/volume] in Urine by Automated test strip 01/21/2023 08:19:03 >=1000 Abnormal Negative (mg/dL) Final Bilirubin.total [Presence] in Urine by Automated test strip 01/21/2023 08:19:03 Negative Negative Final Ketones [Mass/volume] in Urine by Automated test strip 01/21/2023 08:19:03 Negative Negative (mg/dL) Final Specific gravity, Urine 01/21/2023 08:19:03 1.021 1.003-1.030 Final Hemoglobin [Presence] in Urine by Automated test strip 01/21/2023 08:19:03 Trace Abnormal Negative Final pH, Urine 01/21/2023 08:19:03 5.5 5.0-7.5 (Units) Final Protein [Mass/volume] in Urine by Automated test strip 01/21/2023 08:19:03 Trace Abnormal Negative (mg/dL) Final Urobilinogen [Mass/volume] in Urine by Automated test strip 01/21/2023 08:19:03 Normal Normal (mg/dL) Final Nitrite [Presence] in Urine by Automated test strip 01/21/2023 08:19:03 Positive Abnormal Negative Final Leukocyte esterase [Presence] in Urine by Automated test strip 01/21/2023 08:19:03 Large Abnormal Negative Final RBC, Urine 01/21/2023 08:19:03 3-5 Abnormal 0-2 (/HPF) Final WBC, Urine 01/21/2023 08:19:03 50+ Abnormal 0-2 (/HPF) Final Bacteria [#/area] in Urine sediment by Microscopy high power field 01/21/2023 08:19:03 >200 Abnormal 0-25 (/HPF) Final Leukocyte clumps [#/area] in Urine sediment by Microscopy high power field 01/21/2023 08:19:03 Present Abnormal None (/HPF) Final Performing Location [facility] [place] [facility] [place] [address] [facility] [id number]
--- OUTSIDE RECORDS SUMMARY | 2023-05-14 10:41 | External Medical Summary | Summary of Care ---
Author Name Unknown Organization [facility] Address [address] [facility] [place] [address] Phone [phone] Care Team Providers Care Check Writer Salesperson Name Role Phone Virgil Nolasco MD Primary Care Provide r Reason for Visit * Reason Comments Outpatient Testing Encounter Details Date Type Department Care Team Description 11/30/2022 Laboratory Laboratory [address] [place] [id number] [place] [id number] Type 2 diabetes mellitus with hemoglobin A1c goal of less than 7.0% ([facility]) Allergies Active Allergy Reactions Severity Noted Date Comments Lisinopril Cough Low 08/21/2011 Sulfa Antibiotics 01/25/2011 documented as of this encounter (statuses as of 11/30/2022) Medications Medication Sig Dispensed Refills Start Date [...] Tablet Take by mouth. 0 Activ e Atorvastatin Calcium 10 MG Oral Tablet (Lipitor)Indications :Dyslipidemia, goal LDL below 100 Take 1 Tablet by mouth daily. 90 Tablet 3 11/27/2021 Active FreeStyle LancetsIndications:T ype 2 diabetes mellitus [...] 12/15/2021 Active Ezetimibe 10 MG Oral Tablet (Zetia)Indications:D yslipidemia, goal LDL below 100 TAKE 1 TABLET IN THE MORNING 90 Tablet 1 06/13/2022 Active Empagliflozin 25 MG Oral Tablet (Jardiance)Indicatio ns:Type 2 diabetes mellitus with hemoglobin A1c goal of less than 7.0% (HCC) TAKE 1 TABLET IN THE MORNING 90 Tablet 1 08/02/2022 Active Glimepiride 4 MG Oral Tablet (Amaryl)Indications: [...] EVERY DAY 180 Tablet 0 10/12/2022 Active documented as of this encounter (statuses as of 11/30/2022) Active Problems Problem Noted Date History of [...] as of this encounter (statuses as of 11/30/2022) Resolved Problems Problem Noted Date Resolved Date [...] as of this encounter (statuses as of 11/30/2022) Immunizations Name Administration Dates Next Due COVID-19 mRNA, LNP-s, No Pre serve, 2-Dose Series (Moderna) 07/28/2020,06/29/2020 Hepatitis B, 20+ yrs 11/03/2007,05/05/2007,03/31 Meningococcal Conjugate Vacc ine (Menactra/Menveo) 03/19/2007 PPD 04/25/2020,10/10/2009,03/19/2007 Pneumococcal Polysaccharide PPV23 (Pneumovax) 04/22/2006 Seasonal Influenza, PF, 6 mo ns & Above, IM , (Flulaval) 12/15/2021,12/27/2020,12/15/2019,01/03,01/05/2017 Seasonal Influenza, Quadriva lent, No Preserve, [...] Office Visit Family Medicine Virgil Nolasco MD [address] [place] [address] [place] [address] Pending Results Name Type Priority Associated Diagnoses Date /Time LIPID PANEL WITH DIRECT LDL IF TG IS HIGH Lab Routine Type 2 diabetes mellitus with hemoglobin A1c goal of less than 7.0% ([facility]) 11/30/2022 7:52 AM EDT Scheduled Procedures Name Priority Associated Diagnoses Date/Ti me COLONOSCOPY FLEXIBLE PROXIMAL DIAGNOSTIC Recall Screen for colon cancer Health Maintenance Due Date Last Done Comments Cologuard 2002 Fecal Occult Blood Test 2002 Sigmoidoscopy 2002 Pneumococcal Vaccine: 65+ Years (2 - PCV) 04/22/2007 04/22/2006 COVID-19 Vaccine (3 - Moderna series) 09/22/2020 07/28/2020, 06/29/2020 Depression Screening 12/16/2020 12/17/2019 B-12 09/01/2022 09/01/2021, 07/2020, 06/30/2019, Additional history exists Influenza Vaccine (FLU shot) (#1) 2022 12/15/2021, 12/27/2020, 12/15/2019, Additional history exists DXA Scan 2022 05/24/2010 HbA1c 01/02/2023 07/03/2022, 02/09, 09/01/2021, Additional history exists Diabetic Foot Exam 03/07/2023 03/07/2022, 0 03/20/2021, 03/18/2020, Additional history exists GFR 03/07/2023 03/07/2022, 12/09, 12/04/2021, Additional history exists DIABETES-EYE EXAM 04/16/2023 04/16/2022, , 04/25/2020, Additional history exists Mammogram 06/13/2023 06/12/2022, 05/10, 06/02/2020, Additional history exists Albumin/Creatinine Ratio 09/06/2023 023, 09/01/2021, 03/22/2021, Additional history exists Lipid Panel 09/01/2026 09/01/2021, 03/11, 03/15/2020, Additional history exists DTaP,Tdap,and Td Vaccines (3 - Td or Tdap) 09/04/2027 09/03/2017, 03/19/2007 Colonoscopy 04/11/2030 04/11/2020, 02/0 03/2020, 01/23/2019, Additional [...] this encounter Medical Devices Implanted Type Area Vest Maker Device Identifier Shelf Expiration Date Model / Serial / Lot Lens Intraoc 20.0 - [id number] - [id number] Implanted:Qty: 1 on 03/17/2019 by Nicolas Bryant MD at OR [facility] Right: Eye [employer] 10/09/2023 [id number] / [id number] / Lens Intraoc 20.0 - [id number] - [id number] Implanted:Qty: 1 on 03/24/2019 by Nicolas Bryant MD at OR [facility] Left: Eye [employer] 11/09/2023 [id number] / [id number] / documented as of this encounter Visit [...] and were consensually agreed upon. Care Teams Check Writer Salesperson Relationship Specialty Start Date End Date Virgil Nolasco MD [address] [place] [address] [place] [address] PCP - General Family Medicine 03/22/20 documented as of this encounter
--- OUTSIDE RECORDS SUMMARY | 2023-05-14 10:41 | External Medical Summary | Summary of Care ---
Author Name Unknown Organization [facility] Address [address] [facility] [facility] [address] Phone [phone] Care Team Providers Care Invoice Clerk Name Role Phone Virgil Nolasco MD Primary Care Provide r Reason for Visit * Reason Comments Re-Check Encounter Details Date Type Department Care Team (Latest Contact Info) Description 03/27/2023 4:20 PM EST Office Visit Family Medicine [address] [place] [address] Virgil Nolasco MD [address] [place] [address] [place] [address] HTN, goal below 140/90*; Type 2 diabetes mellitus with hemoglobin A1c goal of less than 7.0% ([facility]); DM type 2 nursing care encounter ([facility]); Need for pneumococcal vaccination; S/P parathyroidectomy ([facility]); Dyslipidemia, goal LDL below 100 Allergies Active Allergy Reactions Criticality Noted Date Comments Lisinopril Cough Low 08/21/2011 Sulfa Antibiotics 01/25/2011 documented as of this encounter (statuses as of 03/27/2023) Medications Medication Sig Dispensed Refills Start Date [...] as of this encounter (statuses as of 03/27/2023) Active Problems Problem Noted Date Diagnosed Date [...] as of this encounter (statuses as of 03/27/2023) Resolved Problems Problem Noted Date Diagnosed Date [...] as of this encounter (statuses as of 03/27/2023) Immunizations Name Administration Dates Next Due COVID-19 mRNA, LNP-s, No Pre serve, 2-Dose Series (Moderna) 07/28/2020,06/29/2020 Hepatitis B, 20+ yrs 11/03/2007,05/05/2007,03/31 Meningococcal Conjugate Vacc ine (Menactra/Menveo) 03/19/2007 PPD 04/25/2020,10/10/2009,03/19/2007 Pneumococcal Conjugate Vacci ne, 20-valent ([id number]) 03/27/2023 Pneumococcal Polysaccharide PPV23 (Pneumovax) 04/22/2006 Seasonal [...] on file documented as of this encounter Last Filed Vital Signs Vital Sign Reading Time Taken Comments Blood Pressure 135/88 03/27/2023 4:16 PM EST Pulse 84 03/27/2023 4:16 PM EST Temperature 36.1 C (96.9 F) 03/27/2023 4:16 PM ES T Respiratory Rate - - Oxygen Saturation 95% 03/27/2023 4:16 PM EST Inhaled Oxygen Concentration - - Weight 73.6 kg (162 lb 3.2 oz) 03/27/2023 4:16 P M EST Height - - Body Mass Index 26.99 09/05/2022 8:01 AM EDT documented in this encounter Patient Instructions * Patient Instructions* Daylin Richter CMA - 03/27/2023 4:18 PM EST Images from the original note were not included. Diabetic Retinopathy: Evaluating Your Eyes Diabetic retinopathy is a condition that happens when diabetes damages blood vessels in the rear ofthe eye. It can lead to vision loss. To help catch it early, have a complete dilated eye exam at least once a year. During the exam, the eye healthcare provider will review your medical history, examine your eyes, and check your vision. Women who are and have pre-existing type 1 or type 2 diabetes have an increased risk of retinopathy. Women with diabetes should have an eye exam before or in the first trimester. They should continue to be monitored every trimester and for 1 year after delivery, depending on the severity of the retinopathy. The retina is the light-sensitive part of the eye that allows you to see. High blood sugar can damage blood vessels of the retina and cause them to leak or bleed. This damage can lead to abnormal blood vessel growth. This condition is called diabetic retinopathy. You may not have symptoms early in the disease. Later, there may be floaters, blurred vision, or poor night vision. There may also be partial or complete vision loss. Early cases of diabetic retinopathy can be treated by carefully controlling blood sugar, blood pressure, and cholesterol. Surgery or laser treatments may help restore lost vision. Laser surgery can shrink abnormal blood vessels or close ones that are leaking. Medicines injected in the eye can help decrease swelling of the retina. Home care Take all medicines, including insulin or oral diabetic medicine, exactly as prescribed. Follow the diet advised by your healthcare provider. If you have high cholesterol, follow a low-fat, low-cholesterol diet. Monitor blood sugars as advised. Try to achieve your ideal weight. If you smoke, quit smoking. Tobacco use worsens the effect of diabetes on your blood vessels. If you have high blood pressure, consider buying an automatic blood pressure machine. These are available at most pharmacies. Use this to monitor your blood pressure. Report your blood pressure readings to your healthcare provider. Exercise regularly. Follow-up care Follow up with your healthcare provider, or as advised. You must have a complete eye exam at least once a year, more often if needed. Untreated diabetic retinopathy can lead to complete loss of vision. Occupational therapists can help you adapt to any vision loss you have, including learning techniques to safely administer insulin. When to seek medical advice Call your healthcare provider right away if any of these occur. Increasing blurriness or any sudden changes in your vision Sudden flashes of light inside your eye New floaters (small dots or strings that seem to be moving across your field of vision) Eye pain, redness, or discharge from your eyelid New dark spots appearing in your field of vision Halos around lights Dimness of vision Partial or complete loss of vision Women with diabetes should have a complete eye exam before becoming , or as soon as possible when they find out they are . Retinopathy sometimes worsens during . Your eye exam Your eye healthcare provider uses an eye chart and other tools to check your vision. Then he or sheexamines your eyes for signs of disease. You are given eye drops to widen (dilate) your pupils. Youmay have one or more of the following tests: Tonometry to measure fluid pressure inside the eye. Slit lamp exam to allow the healthcare provider to view the structures of your eye. Ultrasound to create an image of the eye using sound waves. Ultrasound may be used if blood is found in the clear gel that fills the eye (vitreous). Ocular coherence tomography (OCT) to create an image of the retina using light waves. This shows ifthere is fluid leaking into certain parts of the eye. It can also measure the thickness of the retina. Fluorescein angiography This test may be done to check the health of the inside lining of the eye (retina). It also checks the tiny blood vessels (capillaries) that carry blood to the retina. During the test: Photographs are taken of the retina. A dye is then injected into the bloodstream through the arm or hand. The dye travels to the capillaries in the eye. More photographs are taken of the retina. The dye causes the capillaries to stand out on the photographs. You may feel brief nausea during the procedure. For a few hours after the test, your skin, eyes, and urine may appear yellow. Talk with your healthcare provider for more information about this test. Date Last Reviewed: 08/10/201519994962-[address] [employer] [place] [address], [place] [address]. All rights reserved. This information is not intended as a substitute for professional medical care. Always follow your healthcare professional's instructions. ~~PATIENT INSTRUCTIONS FOR PNEUMOCOCCAL VACCINE~~ Possible side effects of pneumococcal vaccine, (pneumonia shot), are usually mild and can include: 1. Soreness or redness at injection site 2. Low grade fever 3. Body aches You may use Tylenol/Acetaminophen as needed for these symptoms. LET YOUR DOCTOR KNOW IMMEDIATELY IF YOU HAVE DIFFICULTY BREATHING OR SWALLOWING, EXPERIENCE ITCHINGOF FEET OR HANDS, HAVE SWELLING OF EYES, FACE OR INSIDE OF NOSE. documented in this encounter Progress Notes * Virgil Nolasco MD - 03/27/2023 4:33 PM EST Subjective: HPI: Larissa Ayala is a 67 year old female with hx of DMII, HTN, HLD, DDD, hx of primary hyperparathyroidism s/p parathyroidectomy 2009 (pathology: parathyroid adenoma), Hx of Nephroliathiasis seen for HTN: - HCTZ 25mg daily - compliant with medication DMII: - jardiance 25mg daily, amaryl 4mg daily, metformin ER 1500mg daily Per pt she has been less active recently Patient Active Problem List Diagnosis Code ADVANCE DIRECTIVE INFORMATION Type 2 diabetes mellitus with hemoglobin A1c goal of less than 7.0% ([facility]) E11.9 Vitamin D deficiency E55.9 Dyslipidemia, goal LDL below 100 E78.5 HTN, goal below 140/90 I10 Degenerative disc disease, cervical M50.30 Slow transit constipation K59.01 History of primary hyperparathyroidism Z86.39 S/P parathyroidectomy ([facility]) E89.2 History of kidney stones Z87.442 Current Outpatient Medications Medication Sig Dispense Refill ASPIRIN 81 MG PO CHEW One pill by mouth once a day with food 30 Tab 5 Loratadine (CLARITIN) 10 MG Cap Take 1 Cap by mouth daily. Indications: as needed 90 Cap 1 Blood Glucose Monitoring Suppl (FREESTYLE LITE) ANNMARIE Test blood sugar twice daily as directed; dx E11.9 1 Device 0 Polyethylene Glycol 3350 17 GM/SCOOP Oral Powder (MiraLax) Take 17 g by mouth daily. Dissolve one heaping tablespoon in 8 ounces of water or juice. 765 g 5 Multivitamin Adults 50+ Oral Tablet Take by mouth. Ezetimibe 10 MG Oral Tablet (Zetia) TAKE 1 TABLET IN THE MORNING 90 Tablet 1 Glimepiride 4 MG Oral Tablet (Amaryl) Take by mouth 1 Tablet daily before breakfast. 90 Tablet 1 hydroCHLOROthiazide 25 MG Oral Tablet (Hydrodiuril) TAKE ONE TABLET BY MOUTH EVERY DAY 90 Tablet 1 metFORMIN HCl ER 750 MG Oral Tablet Extended Release 24 Hour (Glucophage XR) TAKE TWO TABLETS BY MOUTH EVERY DAY 180 Tablet 0 Atorvastatin Calcium 10 MG Oral Tablet (Lipitor) TAKE ONE TABLET BY MOUTH EVERY DAY 90 Tablet 3 FreeStyle Lancets Test blood sugar twice daily as directed; dx E11.9 200 Each 3 FreeStyle Lite Test In Vitro Strip (Glucose Blood) Test blood sugar twice daily as directed; dx E11.9 200 Strip 3 Empagliflozin 25 MG Oral Tablet (Jardiance) TAKE 1 TABLET IN THE MORNING 90 Tablet 3 No current facility-administered medications for this visit. Past Medical History: Diagnosis Date Asthma, severity to be determined Background diabetic retinopathy(362.01) 07/23/2013 Calculus of kidney calcium oxalate Cystitis 01/21/2023 >100,000 pansensitive E coli Degenerative disc disease, cervical 03/15/2016 DM type 2 causing eye disease (HCC) 07/23/2013 mild DM type 2, goal A1c below 7 1999 Dyslipidemia, goal LDL below 100 HTN, goal below 130/80 HTN, goal below 140/90 08/17/2014 Hyperparathyroidism, primary (HCC) Kidney disease, chronic, stage II (GFR 60-89 ml/min) Obesity, Class II, BMI 35.0-39.9, with comorbidity (see actual BMI) 10/20/2012 Other seborrheic keratosis back Overweight (BMI 25.0-29.9) 03/17/2013 Slow transit constipation 04/12/2016 TIA (transient ischemic attack) Vitamin D deficiency 05/26/2009 Vitamin D 20 Past Surgical History: Procedure Laterality Date BACK/FLANK SUBQ TUMOR REMOVAL, UNDER 3 CM N/A 08/18/2021 EXCISION SOFT TISSUE TUMOR BACK OR FLANK performed by Deandra Keen MD at OR [facility] COLONOSCOPY, DIAGNOSTIC (RECTUM) 10/25/2008 wnl COLONOSCOPY, DIAGNOSTIC (RECTUM) 01/23/2019 poor prep, repeat 6-12 mo / COLONOSCOPY FLEXIBLE PROXIMAL DIAGNOSTIC performed by Jessica Gillespie MD atENDOSCOPY [facility] COLONOSCOPY, DIAGNOSTIC (RECTUM) 04/11/2020 normal, repeat 5 yrs / COLONOSCOPY FLEXIBLE PROXIMAL DIAGNOSTIC performed by Jessica Gillespie MD at ENDOSCOPY [facility] CYSTOSCOPY/INSERTION OF STENT Right 03/22/2017 CYSTOURETHROSCOPY WITH INSERTION URETERAL STENT performed by Jeannie Lopez MD at [facility] CYSTOSCOPY/REMOVE OBJECT, SIMPLE 12/04/2012 CYSTOURETERO W/LITHOTRIPSY Right 04/05/2017 CYSTOURETHROSCOPY URETEROSCOPY WITH LITHOTRIPSY performed by Jeannie Lopez MD at [facility] EGD, FLEXIBLE, DIAGNOSTIC 11/12/2017 normal bx/ESOPHAGOGASTRODUODENOSCOPY (EGD), FLEXIBLE, TRANSORAL, DIAGNOSTIC performed by Camilo Chen MD at ENDOSCOPY [facility] EXPLORE PARATHYROID GLANDS 06/27/2010 PARATHYROIDECTOMY performed by MARCELA CARRILLO at OR [facility] FRAGMENT KIDNEY STONE BY SHOCK WAVE 02/23/2011 ESWL (Extracorporeal Shock Wave Lithotripsy) HYSTEROSCOPY;ENDOMETRIAL ABLAT 05/2009 KIDNEY ENDOSCOPY 2003 stones, stents 2003 LIGATE/CUT OVIDUCT(S) MAMMOGRAM SCREENING BILATERAL 06/13/2009 almost entirely fat, category 1 normal PROCEDURE - GENERAL PROCEDURE - GENERAL 08/18/2021 excision of tumor back/flan by Dr Deandra Keen REMOVAL OF STONE FROM RENAL PELVIS 2006 REMOVE CATARACT, INSERT LENS PROSTH Right 03/17/2019 right EXTRACAPSULAR CATARACT REMOVAL WITH INTRAOCULAR LENS performed by Nicolas Bryant MD at [facility] REMOVE CATARACT, INSERT LENS PROSTH Left 03/24/2019 left EXTRACAPSULAR CATARACT REMOVAL WITH INTRAOCULAR LENS performed by Nicolas Bryant MD at OR [facility] US HEAD AND NECK 09/02/2008 multinodular goiter. Review of patient's allergies indicates: Allergen Reactions Sulfa Antibiotics Lisinopril Cough Family History Problem Relation Age of Onset Diabetes Father Heart attack Father Diabetes Grandmother (Paternal) Diabetes Grandfather (Paternal) Social History Tobacco Use Smoking status: Never Smokeless tobacco: Never Substance Use Topics Alcohol use: Yes Comment: ocass Vaping/E-Cigarette Use Vaping/E-Cigarette Substances Vaping/E-Cigarette Devices ROS: -Per HPI OBJECTIVE: BP 135/88 | Pulse 84 | Temp 36.1 C (96.9 F) | Wt 73.6 kg (162 lb 3.2 oz) | SpO2 95% | BMI 26.99kg/m | BSA 1.84 m PHYSICAL EXAM: Vitals are reviewed General:. NAD, well developed HEENT:. Normal Conjunctiva, EOMI Cardiac:. Normal S1, S2, no murmur Lungs:. CTA, no wheezing or crackles MSK:. Normal gait Psych:. AAOx3, normal affect ASSESSMENT/PLAN: HTN, goal below 140/90 (Primary) - initially BP was elevated - repeat was normal - will do home check and RTC in 2 months Type 2 diabetes mellitus with hemoglobin A1c goal of less than 7.0% ([facility]) - continue current meds DM type 2 nursing care encounter ([facility]) - TELEMEDICINE DIABETIC EYE Need for pneumococcal vaccination - PNEUMOCOCCAL VACC, PCV20, IM ([id number]) S/P parathyroidectomy ([facility]) - asymptomatic Dyslipidemia, goal LDL below 100 - on zetia and lipitor Follow Up: Return in about 2 days (around 03/29/2023). Virgil Nolasco [place] [phone] * Daylin Richter CMA - 03/27/2023 4:18 PM EST The importance of having a yearly diabetic eye exam has been discussed with patient. Order and/or Referral placed along with patient instructions. Provider made aware. Daylin Richter CMA Immunization Administration Documentation Time Out Procedure Performed: Yes Patient Identified (Ask Name/Date of ): Yes Does the patient have a fever greater than 101 degrees today? No Patient allergic to latex? No VFC Stock: No Immunization(s) verified: Yes, Immunization Name: Prevnar 20 (PCV20), VIS Sheet(s) given: Yes Verified Side and Site: Yes Verified Shot(s) with Parent(s)/Patient: Yes documented in this encounter Nursing Notes * Daylin Richter CMA - 03/27/2023 4:15 PM EST She is here for a regular recheck. She doesn't have any problems or concerns she wants to discuss. documented in this encounter Plan of Treatment Upcoming Encounters Date Type Department Care Team (Late st Contact Info) Description 06/04/2023 7:20 AM EDT Office Visit Family Medicine [address] [place] [address] Virgil Nolasco MD [address] [place] [address] [place] [address] Scheduled Procedures Name Priority Associated Diagnoses Date/Ti [...] this encounter Medical Devices Implanted Type Area Continuous Wave Operator Device Identifier Shelf Expiration Date Model / Serial / Lot Lens Intraoc 20.0 - [id number] - [id number] Implanted:Qty: 1 on 03/17/2019 by Nicolas Bryant MD at OR [facility] Right: Eye [employer] 10/09/2023 [id number] / [id number] / Lens Intraoc 20.0 - [id number] - [id number] Implanted:Qty: 1 on 03/24/2019 by Nicolas Bryant MD at OR [facility] Left: Eye [employer] 11/09/2023 [id number] / [id number] / documented as of this encounter Procedures Procedure Name Priority Date/Time Associated Diagnosis Comments TELEMEDICINE DIABETIC EYE Routine 03/27/2023 DM type 2 nursing care encounter (HCC) documented in this encounter Results * TELEMEDICINE DIABETIC EYE (03/27/2023) 03/27/2023 Virgil Nolasco MD DIGITAL PHOTO GRAPHY documented in this encounter Visit Diagnoses Diagnosis HTN, goal below 140/90- Primary Unspecified essential hypertension Type 2 diabetes mellitus with hemoglobin A1c goal of less than 7.0% (HCC) DM type 2 nursing care encounter ([facility]) Type II or unspecified type diabetes mellitus without mention of complication, not stated as uncontrolled Need for pneumococcal vaccination Need for prophylactic vaccination against streptococcus pneumoniae (pneumococcus) S/P parathyroidectomy (HCC) Other postprocedural status Dyslipidemia, goal LDL below 100 Other and [...] and were consensually agreed upon. Care Teams Invoice Clerk Relationship Specialty Start Date End Date Virgil Nolasco MD [address] [place] [address] [place] [address] PCP - General Family Medicine 03/22/20 documented as of this encounter"
--- OUTSIDE RECORDS SUMMARY | 2023-05-14 10:41 | External Medical Summary | Summary of Care ---
Author Name Unknown Organization [facility] Address [address] [place] [address] Phone [phone] Care Team Providers Care Mold Preparer Name Role Phone Virgil Nolasco MD Primary Care Provide r Reason for Visit * Reason Onset Date Comments Health Maintenance 12/19/2022 Encounter Details Date Type Department Care Team Description 12/19/2022 Telephone Family [address] [phone] Virgil Nolasco MD [address] [place] [address] [place] [phone] Health Maintenance Allergies Active Allergy Reactions Severity Noted Date [...] Tablet Take by mouth. 0 Activ e FreeStyle LancetsIndications:T ype 2 diabetes mellitus with [...] EVERY DAY 90 Tablet 3 12/19/2022 Active documented as of this encounter (statuses [...] encounter Miscellaneous Notes * Telephone Encounter - Talya Mathews LPN - 12/19/2022 11:13 AM EDT Care Gaps Comprehensive Care Outreach Last Office/Telemedicine Visit: 09/05/2022 (in office), Visit date not found (telemedicine) Next Office Visit: 03/18/2023 Hemoglobin AIC Results: Lab Results Component Value Date/Time HEMOGLOBIN A1C - [facility] 7.4 (H) 11/30/2022 07:52 AM HEMOGLOBIN A1C - [facility] 7.6 (H) 07/03/2022 07:54 AM HEMOGLOBIN A1C - [facility] 7.2 (H) 03/07/2022 08:24 AM HEMOGLOBIN A1C - [facility] 6.9 (H) 03/15/2020 07:58 AM HEMOGLOBIN A1C - [facility] 8.5 (H) 12/15/2019 09:50 AM HEMOGLOBIN A1C - [facility] 8.2 (H) 06/30/2019 09:54 AM Reviewed Health Maintenance below: Health Maintenance Topic Date Due Pneumococcal Vaccine: 65+ Years (2 - PCV) 04/22/2007 Depression Screening 12/16/2020 Influenza Vaccine (FLU shot) (1) 11/09/2022 COVID-19 Vaccine ( season) 2022 DXA Scan 2022 Diabetic Foot Exam 03/07/2023 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 My g sentwith my number Care Gap Outreach Action Taken: Spoke to patient documented in this encounter Plan of Treatment Upcoming Encounters Date Type Specialty Care Team Description 03/18/2023 Office Visit Family Medicine Virgil Nolasco MD [address] [place] [address] [place] [address] Scheduled Procedures Name Priority Associated Diagnoses Date/Ti me COLONOSCOPY FLEXIBLE PROXIMAL DIAGNOSTIC Recall Screen for colon cancer Health Maintenance Due Date Last Done Comments Cologuard 2002 Fecal Occult Blood Test 2002 Sigmoidoscopy 2002 Pneumococcal Vaccine: 65+ Years (2 - PCV) 04/22/2007 04/22/2006 Depression Screening 12/16/2020 12/17/2019 COVID-19 Vaccine (3 - season) 2022 07/28/2020, 06/29/2020 Influenza Vaccine (FLU [...] this encounter Medical Devices Implanted Type Area Cell Reliner Device Identifier Shelf Expiration Date Model / Serial / Lot Lens Intraoc 20.0 - [id number] - [id number] Implanted:Qty: 1 on 03/17/2019 by Nicolas Bryant MD at OR [facility] Right: Eye [employer] 10/09/2023 [id number] / [id number] / Lens Intraoc 20.0 - [id number] - [id number] Implanted:Qty: 1 on 03/24/2019 by Nicolas Bryant MD at OR [facility] Left: Eye [employer] 11/09/2023 [id number] / [id number] / documented as of this encounter Advance [...] and were consensually agreed upon. Care Teams Mold Preparer Relationship Specialty Start Date End Date Virgil Nolasco MD [address] [place] [address] [place] [address] PCP - General Family Medicine 03/22/20 documented as of this encounter
--- OUTSIDE RECORDS SUMMARY | 2023-05-14 10:41 | External Medical Summary | Summary of Care ---
Author Name Unknown Organization [facility] Address [address] [place] [address] Phone [phone] Care Team Providers Care Regulatory Leader Name Role Phone Virgil Nolasco MD Primary Care Provide r Reason for Visit * Reason Onset Date Comments Health Maintenance 12/19/2022 Encounter Details Date Type Department Care Team (Late st Contact Info) Description 12/19/2022 Telephone Family Medicine [address] [phone] Virgil Nolasco MD [address] [place] [address] [place] [address] Health Maintenance Allergies Active Allergy Reactions Criticality Noted Date Comments Lisinopril Cough Low 08/21/2011 Sulfa Antibiotics 01/25/2011 documented as of this encounter (statuses as of 01/10/2023) Medications Medication Sig Dispensed Refills Start Date [...] as of this encounter (statuses as of 01/10/2023) Active Problems Problem Noted Date Diagnosed Date [...] as of this encounter (statuses as of 01/10/2023) Resolved Problems Problem Noted Date Diagnosed Date [...] as of this encounter (statuses as of 01/10/2023) Immunizations Name Administration Dates Next Due COVID-19 [...] Split, I IV3, With Preserve, Inj 12/23/2017,12/30/2013,12/09/2012,12/23,12/30/2010,12/06/2009,12/07/2008 ,12/24/2007,12/14/2005,01/01/2005 TDAP (age 10 and older)(Boostrix) 09/03/2017 TDAP [...] as of this encounter Miscellaneous Notes * Addendum Note - Talya Mathews LPN - 12/24/2022 8:12 AM EDTAddended by: TALYA MATHEWS on: 12/24/2022 08:12 AM Modules accepted: Orders * Telephone Encounter - Talya Mathews LPN [...] Vaccine (FLU shot) (1) 11/09/2022 COVID-19 Vaccine (3 - 2022-24 season) 2022 DXA Scan 2022 Diabetic Foot Exam 03/07/2023 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 My g sentwith my number Care Gap Outreach Action Taken: Spoke to patient documented in this encounter Plan of Treatment Upcoming Encounters Date Type Department Care Team ([facility] Contact Info) Description 02/21/2023 10:30 AM EST Imaging Radiology, [facility] [address] [facility] [place], [place] [address] 03/18/2023 10:00 AM EST Office Visit Family Medicine [address] [place] [phone] Virgil Nolasco MD [address] [place] [address] [place] [phone] Scheduled Orders Name Type Priority Associated Diagnoses Orde r Schedule DEXA SCAN/BONE MINERAL AXIAL Medical Imaging Routine Osteoporosis Expected: 12/24/2022, Expires: 12/25/2023 Scheduled Procedures Name Priority Associated Diagnoses Date/Ti [...] this encounter Medical Devices Implanted Type Area Lang Path Therapist Device Identifier Shelf Expiration Date Model / Serial / Lot Lens Intraoc 20.0 - [id number] - [id number] Implanted:Qty: 1 on 03/17/2019 by Nicolas Bryant MD at OR [facility] Right: Eye [employer] 10/09/2023 [id number] / [id number] / Lens Intraoc 20.0 - [id number] - [id number] Implanted:Qty: 1 on 03/24/2019 by Nicolas Bryant MD at OR [facility] Left: Eye [employer] 11/09/2023 [id number] / [id number] / documented as of this encounter Visit Diagnoses Diagnosis Osteoporosis- Primary Osteoporosis, unspecified documented in this encounter Advance Directives Latest [...] and were consensually agreed upon. Care Teams Regulatory Leader Relationship Specialty Start Date End Date Virgil Nolasco MD [address] [place] [address] [place] [phone] PCP - General Family Medicine 03/22/20 documented as of this encounter
--- OUTSIDE RECORDS SUMMARY | 2023-05-14 10:41 | External Medical Summary | Summary of Care ---
Author Name Unknown Organization [facility] Address [address] [place] [address] Phone [phone] Care Team Providers Care Parts Consultant Name Role Phone Virgil Nolasco MD Primary Care Provide r Reason for Visit * Reason Onset Date Comments Medication Refill 01/17/2023 Encounter Details Date Type Department Care Team (Late st Contact Info) Description 01/17/2023 Refill Family Medicine [address] [address] Virgil Nolasco MD [address] [place] [address] [place] [phone] Type 2 diabetes mellitus with hemoglobin A1c goal of less than 7.0% ([facility]) Allergies Active Allergy Reactions Criticality Noted Date Comments Lisinopril Cough Low 08/21/2011 Sulfa Antibiotics 01/25/2011 documented as of this encounter (statuses as of 01/17/2023) Medications Medication Sig Dispensed Refills Start Date [...] 06/13/2022 Active Glimepiride 4 MG Oral Tablet (Amaryl)Indication [...] 01/09/2023 Active Empagliflozin 25 MG Oral Tablet (Jardiance)Indicat ions:Type 2 diabetes mellitus with hemoglobin A1c goal of less than 7.0% (HCC) TAKE 1 TABLET IN THE MORNING 90 Tablet 3 01/17/2023 Active Empagliflozin 25 MG Oral Tablet (Jardiance)Indicat ions:Type 2 diabetes mellitus with hemoglobin A1c goal of less than 7.0% (HCC) TAKE 1 TABLET IN THE MORNING 90 Tablet 1 08/02/2022 3 Discontinue d(Refill) documented as of this encounter (statuses as of 01/17/2023) Active Problems Problem Noted Date Diagnosed Date [...] as of this encounter (statuses as of 01/17/2023) Resolved Problems Problem Noted Date Diagnosed Date [...] as of this encounter (statuses as of 01/17/2023) Immunizations Name Administration Dates Next Due COVID-19 [...] encounter Miscellaneous Notes * Telephone Encounter - Stephan Malave RPh - 01/17/2023 4:08 PM EST Signed Prescriptions: Disp Refills Empagliflozin 25 MG Oral Tablet (Jardiance)90 Tab*3 Sig: TAKE 1 TABLET IN THE MORNINGAuthorizing Provider: Vaughn NOLASCO User: STEPHAN MALAVE documented in this encounter Plan of Treatment Upcoming Encounters Date Type Department Care Team (Late st Contact Info) Description 02/21/2023 10:30 AM EST Imaging Radiology, [address] [place] [address] 03/18/2023 10:00 AM EST Office Visit Family Medicine [address] [address] Virgil Nolasco MD [address] [place] [address] [place] [phone] Scheduled Procedures Name Priority Associated Diagnoses Date/Ti me COLONOSCOPY FLEXIBLE PROXIMAL DIAGNOSTIC Recall Screen for colon cancer Health Maintenance Due Date Last Done Comments Cologuard 2002 Fecal Occult Blood Test 2002 Sigmoidoscopy 2002 Pneumococcal Vaccine: 65+ Years (2 - PCV) 04/22/2007 04/22/2006 Depression Screening 12/16/2020 12/17/2019 COVID-19 Vaccine (3 - 2022-24 season) 2022 07/28/2020, 06/29/2020 DXA Scan 2022 [...] this encounter Medical Devices Implanted Type Area Wiring Mechanic Device Identifier Shelf Expiration Date Model / Serial / Lot Lens Intraoc 20.0 - [id number] - [id number] Implanted:Qty: 1 on 03/17/2019 by Nicolas Bryant MD at OR [facility] Right: Eye [employer] 10/09/2023 [id number] / [id number] / Lens Intraoc 20.0 - [id number] - [id number] Implanted:Qty: 1 on 03/24/2019 by Nicolas Bryant MD at OR [facility] Left: Eye [employer]OM[employer] 11/09/2023 [id number] / [id number] / documented as of this encounter Visit [...] and were consensually agreed upon. Care Teams Parts Consultant Relationship Specialty Start Date End Date Virgil Nolasco MD [address] [place] [address] [place] [phone] PCP - General Family Medicine 03/22/20 documented as of this encounter
--- OUTSIDE RECORDS SUMMARY | 2023-05-14 10:41 | External Medical Summary ---
Author Name Unknown Address Unknown Organization [id number]:[facility] [place] [address] [facility] [address] Laboratory Report Ordering Provider Test Date Status CHANDLER GILLESPIE 01/21/2023 08:19:03 Final <10,000 colonies/ml mixed no rmal davey Observation Date Value Abnormality Reference (Units ) Status Bacteria identified in Specimen by Culture 01/21/2023 08:19:03 [id number]^ESCHE RICHIA COLI Abnormal Final >100,000 colonies/mL Escheri tommie coli Performing Location [facility] [place] [facility] [address] [facility] [address] Ordering Provider Test Date Status CHANDLER GILLESPIE 01/21/2023 08:19:03 Final Observation Date Value Abnormality Reference (Units ) Status Ampicillin 01/21/2023 08:19:03 4 Susceptible Final Cefazolin 01/21/2023 08:19:03 <=4 Susceptible Final Cefepime susceptibility 01/21/2023 08:19:03 <=1 Susceptible Final Ceftriaxone suceptibility 01/21/2023 08:19:03 <=1 Susceptible Final Ciprofloxacin 01/21/2023 08:19:03 <=0.25 Susceptible Final Due to serious side effects, the FDA has advised against using Ciprofloxacin to treat uncomplicated UTIs and respiratory tract infections unless there are no alternative treatment options. Gentamicin susceptibility 01/21/2023 08:19:03 <=1 Susc eptible Final Nitrofurantoin susceptibility 01/21/2023 08:19:03 <=16 Susceptible Final Piperacillin + Tazobactamsusceptibility 01/21/2023 08:19:03 <=4 Susceptible Final TMP-SMZ susceptibility 01/21/2023 08:19:03 <=20 Suscept ible Final Test: Culture, Urine, Quanti tative
Specimen Source: Urine, Clean Catch
Specimen Type: Urine
Specimen Date: 01/21/2023 8:19 AM
Result Date: 01/24/2023 12:45 PM
Result Status: Final result
Abnormal: Yes
Resulting Lab: [facility] [place]
[address]
[facility] [address]

CULTURE

>100,000 colonies/mL Escherichia coli (Abnormal)

<10,000 colonies/ml mixed normal davey

SUSCEPTIBILITY

Escherichia coli
METHOD MICROBROTH DILUTIONS

AMPICILLIN 4 Susceptible
CEFAZOLIN <=4 Susceptible
CEFEPIME <=1 Susceptible
CEFTRIAXONE <=1 Susceptible
CIPROFLOXACIN <=0.25 Susceptible [1]
GENTAMICIN <=1 Susceptible
NITROFURANTOIN <=16 Susceptible
PIPERACILLIN TAZOBACTAM <=4 Susceptible
TRIMETH/SULFAMETHOXAZOLE <=20 Susceptible

[1] Due to serious side effects, the FDA has advised against using
Ciprofloxacin to treat uncomplicated UTIs and respiratory tract infections
unless there are no alternative treatment options.

null Performing Location [facility] [place] [address] [facility] [address]
--- OUTSIDE RECORDS SUMMARY | 2023-05-14 10:41 | External Medical Summary ---
Author Name Unknown Address Unknown Organization [id number]:[facility] [place] [address] [facility] [address] Laboratory Report Ordering Provider Test Date Status ARCHANA CHARLES 11/30/2022 07:52:27 Emma l Observation Date Value Abnormality Reference (Units ) Status BUN 11/30/2022 07:52:27 27 Above high normal 6-20 (mg/dL) Final Creatinine 11/30/2022 07:52:27 0.9 0.5-1.0 (mg/dL) Final Glomerular filtration rate/1.73 sq M.predicted [Volume Rate/Area] in Serum, Plasma or Blood by Creatinine-based formula (CKD-EPI) 11/30/2022 07:52:27 69 >=60 (mL/min) Final eGFR is calculated based on the CKD-EPI 2020 equation SODIUM 11/30/2022 07:52:27 139 135-146 (m mol/L) Final Potassium 11/30/2022 07:52:27 4.6 3.5-5.1 (m mol/L) Final Cl 11/30/2022 07:52:27 101 98-107 (mm ol/L) Final CO2 11/30/2022 07:52:27 27 22-32 (mmo l/L) Final Anion gap 11/30/2022 07:52:27 11 7-15 (mmol /L) Final Glucose 11/30/2022 07:52:27 150 Above high normal 70 -120 (mg/dL) Final Albumin 11/30/2022 07:52:27 4.3 3.8-5.0 (g /dL) Final AST (Aspartate aminotransferase) 11/30/2022 07:52:27 14 10-35 (U/L) Fin al Alk Phos 11/30/2022 07:52:27 86 35-130 (U/ L) Final Bilirubin, Total 11/30/2022 07:52:27 0.3 <=1 .2 (mg/dL) Final Calcium 11/30/2022 07:52:27 9.9 8.4-10.2 ( mg/dL) Final Protein 11/30/2022 07:52:27 7.0 6.0-8.3 (g /dL) Final ALT (Alanine aminotransferase) 11/30/2022 07:52:27 19 10-35 (U/L) Anam flower Performing Location [facility] [place] [facility] [place] [address] [facility] [address]
--- OUTSIDE RECORDS SUMMARY | 2023-05-14 10:41 | External Medical Summary | Summary of Care ---
Author Name Unknown Organization [facility] Address [address] [place] [address] Phone [phone] Care Team Providers Care It Desktop Support Technician Name Role Phone Virgil Nolasco MD Primary Care Provide r Reason for Visit * Reason Onset Date Comments Health Maintenance 12/19/2022 Encounter Details Date Type Department Care Team (Late st Contact Info) Description 12/19/2022 Telephone Family Medicine [address] [address] Virgil Nolasco MD [address] [place] [address] [place] [phone] Health Maintenance Allergies Active Allergy Reactions Criticality [...] shot) (1) 11/09/2022 COVID-19 Vaccine (3 - season) 2022 DXA Scan 2022 Diabetic Foot [...] 10:00 AM EST Office Visit Family Medicine [address] [address] Virgil Nolasco MD [address] [place] [address] [place] [phone] Scheduled Orders Name Type Priority Associated Diagnoses [...] Depression Screening 12/16/2020 12/17/2019 COVID-19 Vaccine ( - 2022- season) 2022 07/28/2020, 06/29/2020 DXA [...] this encounter Medical Devices Implanted Type Area Manager Shop Device Identifier Shelf Expiration Date Model / Serial / Lot Lens Intraoc 20.0 - [id number] - [id number] Implanted:Qty: 1 on 03/17/2019 by Nicolas Bryant MD at OR [facility] Right: Eye [employer] 10/09/2023 [id number] / [id number] / Lens Intraoc 20.0 - [id number] - [id number] Implanted:Qty: 1 on 03/24/2019 by Nicolas Bryant MD at OR [facility] Left: Eye [employer] 11/09/2023 [id number] / [id number] / documented as of this encounter Visit [...] and were consensually agreed upon. Care Teams It Desktop Support Technician Relationship Specialty Start Date End Date Virgil Nolasco MD [address] [place] [address] [place] [phone] PCP - General Family Medicine 03/22/20 documented as of this encounter
--- OUTSIDE RECORDS SUMMARY | 2023-05-14 10:41 | External Medical Summary | Summary of Care ---
Author Name Unknown Organization [facility] Address [address] [place] [address] Phone [phone] Care Team Providers Care O And M Supervisor Name Role Phone Virgil Nolasco MD Primary Care Provide r Reason for Visit * Reason Onset Date Comments Health Maintenance 12/19/2022 Encounter Details Date Type Department Care Team Description 12/19/2022 Telephone Family [address] [address] Virgil Nolasco MD [address] [place] [address] [place] [phone] Health Maintenance Allergies Active Allergy Reactions Severity Noted Date Comments Lisinopril Cough Low 08/21/2011 Sulfa Antibiotics 01/25/2011 documented as of this encounter (statuses as of 12/24/2022) Medications Medication Sig Dispensed Refills Start Date [...] as of this encounter (statuses as of 12/24/2022) Active Problems Problem Noted Date History of [...] as of this encounter (statuses as of 12/24/2022) Resolved Problems Problem Noted Date Resolved Date [...] as of this encounter (statuses as of 12/24/2022) Immunizations Name Administration Dates Next Due COVID-19 [...] shot) (1) 11/09/2022 COVID-19 Vaccine (3 - 2022- season) 2022 DXA Scan 2022 Diabetic Foot [...] Office Visit Family Medicine Virgil Nolasco MD [address] [place] [address] [place] [phone] Scheduled Orders Name Type Priority Associated Diagnoses [...] 04/25/2020, Additional history exists HbA1c 05/31/2023 11/30/2022, 2 07/2022, 03/07/2022, Additional history exists Mammogram 06/13/2023 [...] this encounter Medical Devices Implanted Type Area Rehabilitation Worker Device Identifier Shelf Expiration Date Model / Serial / Lot Lens Intraoc 20.0 - [id number] - [id number] Implanted:Qty: 1 on 03/17/2019 by Nicolas Bryant MD at OR [facility] Right: Eye [employer] 10/09/2023 [id number] / [id number] / Lens Intraoc 20.0 - [id number] - [id number] Implanted:Qty: 1 on 03/24/2019 by Nicolas Bryant MD at OR [facility] Left: Eye [employer] 11/09/2023 [id number] / [id number] / documented as of this encounter Visit [...] and were consensually agreed upon. Care Teams O And M Supervisor Relationship Specialty Start Date End Date Virgil Nolasco MD [address] [place] [address] [place] [address] PCP - General Family Medicine 03/22/20 documented as of this encounter
--- OUTSIDE RECORDS SUMMARY | 2023-05-14 10:41 | External Medical Summary ---
Author Name Unknown Address Unknown Organization [id number]:[facility] [place] [address] [facility] [address] Laboratory Report Ordering Provider Test Date Status ABA CHARLESGET 11/30/2022 07:52:27 Emma joiner Observation Date Value Abnormality Reference (Units ) Status HbA1C 11/30/2022 07:52:27 7.4 Above high normal 4. 0-5.6 (%) Final The use of HbA1c to monitor glycemic status is based on normal hemoglobin and HbA composition. This test should not be used in patients with abnormal hemoglobin that affects the half life of the red blood cell or the in vivo glycation rates. Glucose, estimated average 11/30/2022 07:52:27 166 Above high normal <126 (mg/dL) Anam flower Performing Location [facility] [place] [address] [facility] [address]
--- OUTSIDE RECORDS SUMMARY | 2023-05-14 10:42 | External Medical Summary ---
Author Name Unknown Address Unknown Organization [id number]:[facility] [place] - [address] [facility] [place] [address] Laboratory Report Ordering Provider Test Date Status ATUL JORDAN 11/30/2022 07:52:27 Final Observation Date Value Abnormality Reference (Units ) Status Triglyceride 11/30/2022 07:52:27 129 <=174 ( mg/dL) Final Triglyceride Reference Range s (mg/dL):
<150 Acceptable
150-174 Borderline high
175-499 High
>=500 Very high Cholesterol 11/30/2022 07:52:27 129 <200 (mg /dL) Final Total Cholesterol Reference Ranges (mg/dL):
<200 Desirable
200-239 Borderline high
>=240 High HDL 11/30/2022 07:52:27 45 Below low normal >49 (mg/dL) Final HDL Cholesterol Reference Ra nges (mg/dL):
>=60 High (Desirable)
<50 Low (Undesirable) For Females
<40 Low (Undesirable) For Males NON-HDL CHOLESTEROL 11/30/2022 07:52:27 84 <=159 (mg/dL) Final Non-HDL Cholesterol Referenc e Range (mg/dL):
<100 Target level for high risk ASCVD patient
<130 Optimal for general population
130-159 Near optimal for general population
160-189 Borderline High
190-219 High
>=220 Very High LDL, (calculated) 11/30/2022 07:52:27 58 <= 129 (mg/dL) Final LDL Cholesterol Reference Ra nges (mg/dL):
<70 Target level for high risk ASCVD patient
<100 Optimal for general population
100-129 Near optimal for general population
130-159 Borderline high
160-189 High
>=190 Very high Performing Location [facility] [place] - [address] [facility] [address]
--- OUTSIDE RECORDS SUMMARY | 2023-05-14 10:42 | External Medical Summary ---
Author Name Unknown Address Unknown Organization [id number]:[facility] [place] [address] [place] [address] Laboratory Report Ordering Provider Test Date Status ARCHANA CHARLES 11/30/2022 07:52:27 Emma l Observation Date Value Abnormality Reference (Units ) Status Vitamin B12 11/30/2022 07:52:27 [phone] (pg/mL) Final Performing Location [facility] [place] [address] [place] [address]
--- NOTE | 2023-05-14 10:56 | Emergency Department Note ---
ED Visit Note I was consulted in regards to the patient's presentation and plan of care by the Advanced Practice Provider. I engaged in a detailed/meaningful discussion with the Advanced Practice Provider in regards to this patient's workup and plan of care. Please see the Advanced Practice Provider's note for full details of the patient encounter. I agree with the assessment and plan of Chidi Rodney PA-C. Chano De Souza, DO Emergency Medicine .
[2023-05-14] MEDS: POTASSIUM CHLORIDE CRTAB 20 MEQ TABCR PO STA (11:22)
[2023-05-14] MEDS ORDERED: DEXTROSE 50% 50 ML SYRINGE IV PRN (13:49)
[2023-05-14] MEDS ORDERED: CARBOHYDRATES FOR HYPOGLYCEMIA PO PRN (13:49)
[2023-05-14] MEDS ORDERED: GLUCOSE 10 TAB/TUBE PO PRN (13:49)
[2023-05-14] MEDS ORDERED: HYDROmorphone INJ 0.5 MG/0.5 ML SYR IV PRN (13:49)
[2023-05-14] MEDS ORDERED: GLUCOSE 40% GEL 15 GM TUBE PO PRN (13:49)
[2023-05-14] MEDS ORDERED: POLYETHYLENE (MIRALAX) 17 GM PACK PO PRN (13:49)
[2023-05-14] MEDS ORDERED: ACETAMINOPHEN 500 MG TAB PO PRN (13:49)
[2023-05-14] MEDS ORDERED: GLUCAGON FOR INJ 1 MG VIAL SQ PRN (13:49)
[2023-05-14] MEDS: ENOXAPARIN INJ 40 MG/0.4 ML SYR SQ SCH (14:10)
[2023-05-14] MEDS: INSULIN ASPART PER UNIT CHARGE SC SCH (14:20)
[2023-05-14] MEDS: KETOROLAC TROMETHAMINE 15 MG/ML VIAL IV PRN (14:21)
[2023-05-14] MEDS: DOCUSATE SODIUM 100 MG CAP PO SCH (20:27)
[2023-05-14] MEDS: LANTUS PER UNIT CHARGE SQ SCH (20:34)
[2023-05-15 07:00] LABS: Basophils # (auto) 0.03 K/uL (0.00-0.20); Basophils % (auto) 0.4 %; Eosinophils # (auto) 0.39 K/uL (0.00-0.50); Eosinophils % (auto) 5.8 %; Hematocrit (blood only) 41.5 % (37.0-47.0); Immature Granulocytes # (auto) 0.02 K/uL (0.01-0.20); Immature Granulocytes % (auto) 0.3 %; Lymphocytes # (auto) 2.51 K/uL (1.20-3.40); Lymphocytes % (auto) 37.4 %; Mean Corpuscular Hgb Conc 33.7 g/dL (32.0-36.0); Mean Platelet Volume 10.4 fL (9.4-12.4); Monocytes % (auto) 7.5 %; Neutrophils # (auto) 3.26 K/uL (1.40-6.50); Neutrophils % (auto) 48.6 %; Platelet Count 171 K/uL (130-400); RDW Coefficient of Variation 13.2 % (11.5-14.5); RDW Standard Deviation 40.1 fL (36.4-46.3); White Blood Count 6.71 K/ul (4.8-10.8)
[2023-05-15 07:21] LABS: Estimated Average Glucose 189 mg/dl; Hemoglobin A1C 8.2 % (4.5-5.6)
[2023-05-15 07:30] LABS: BUN Creatinine Ratio 25.8 (10-20); Calcium 9.1 mg/dl (8.6-10.3); Creatinine Clr Calc Pharmacy 55.6 ml/min; Est GFR (Non-African American) 61.3 ml/min; Magnesium 1.9 mg/dl (1.7-2.4); Phosphorus 3.5 mg/dl (2.5-4.9); Potassium 3.6 mmol/L (3.5-5.1)
[2023-05-15] MEDS: ASPIRIN 81 MG ECTAB PO SCH (08:00)
[2023-05-15] MEDS: ATORVASTATIN 10 MG TAB PO SCH (08:00)
[2023-05-15] MEDS: EZETIMIBE 10 MG TAB PO SCH (08:01)
[2023-05-15] MEDS: hydroCHLOROthiazide 25 MG TAB PO SCH (08:02)
[2023-05-15] MEDS: cefTRIAXone SODIUM 2,000 MG in DEXTROSE 5 % MINI-B 50 ML IV SCH (10:45)
--- NOTE | 2023-05-15 11:46 | Hospitalist Progress Note ---
Date of Service May 15, 2023 Assessment & Plan (1) Acute UTI (urinary tract infection): (2) Right flank pain: (3) Hypokalemia: Plan Pt is a 67yoF with PMHx significant for history of kidney stones, DMII, HTN, HLD, DD, Vit D deficiency, Hx of primary hyperparathyroidism s/p pa rathyroidectomy in 2009, chronic constipation, Hx of TIA presenting with flank pain. Flank Pain Complicated UTI Pt presenting with flank pain of 2-3 days Hx of urosepsis with obstructive uropathy UA suggestive of infection in the ED, urine Cx growing gram negative bacilli CT abd/pelvis with no noted obstructing kidney stones No signs of sepsis during this admission Hypokalemia K of 3.3 on admission Replete as needed Nonobstructive Nephrolithiasis Noted on CT abd/pelvis PCP/Urology follow up recommended DMII- Glucose of 193. On jardiance, amaryl and metformin at home. Holding. Basal/bolus while hospitalized HTN- continue home HCTZ Constipation- notes chronic Hx. Started on docusate sodium 100mg BID scheduled with home miralax prn HLD- continue home zetia and atorvastatin Hx of TIA- continue home aspirin and statin Hx of primary hyperparathyroidism- s/p parathyroidectomy in 2009, pathology noted "parathyroid adenoma" Vit D deficiency- not currently on supplementation. AM Vit D level DVT prophylaxis: Lovenox SQ Diet: HH/DMII CODE STATUS: Conditional- wants CPR and defibrillation, does not want intubation/ventilator support Dispo: Med/Surg Admission and Anticipated Discharge Date Admission Date: May 14, 2023 Subjective pt was seen in the AM. Stated that she felt ready to go home, was feeling so much better. otherwise denied acute concerns. Review of Systems Review of Systems: All systems reviewed & are unremarkable except as noted in Subjective Physical Exam Physical Exam: General: Alert, oriented. No acute distress Skin: No noted rashes or bruises, large SK on back Psych: Appropriate mood and affect Neuro: No gross deficits HEENT: NC/AT Chest: Nontender to palpation. CV: RRR, Normal s1, s2. No murmurs appreciated Resp: Breath sounds clear bilaterally, no increased effort of breathing. Abdomen: Soft, nontender, nondistended. Flank pain cannot be reproduced with palpation Extremities: No edema in lower extremities bilaterally. Results & Data Results & Data Vital Signs (Past 12 Hours) Vital Signs Temp Pulse Resp BP Pulse Ox O2 Del Method 05/15/23 07:50 36.6 C 59 L 16 115/72 97 Room Air
[2023-05-15] MEDS: CHOLECALCIFEROL 25 MCG (1000 UNITS) TAB PO SCH (22:44)
[2023-05-16 06:16] LABS: Basophils # (auto) 0.04 K/uL (0.00-0.20); Basophils % (auto) 0.6 %; Eosinophils # (auto) 0.36 K/uL (0.00-0.50); Eosinophils % (auto) 5.7 %; Hematocrit (blood only) 40.3 % (37.0-47.0); Hemoglobin 13.8 g/dl (12.0-16.0); Immature Granulocytes # (auto) 0.01 K/uL (0.01-0.20); Immature Granulocytes % (auto) 0.2 %; Lymphocytes # (auto) 3.05 K/uL (1.20-3.40); Mean Corpuscular Hemoglobin 27.9 pg (25.0-34.0); Mean Corpuscular Hgb Conc 34.2 g/dL (32.0-36.0); Mean Corpuscular Volume 81.4 fL (80.0-100.0); Monocytes # (auto) 0.53 K/uL (0.11-0.59); Monocytes % (auto) 8.3 %; Neutrophils # (auto) 2.36 K/uL (1.40-6.50); Neutrophils % (auto) 37.2 %; Platelet Count 193 K/uL (130-400); RDW Coefficient of Variation 13.2 % (11.5-14.5); RDW Standard Deviation 38.5 fL (36.4-46.3); Red Blood Count 4.95 M/uL (4.20-5.40); White Blood Count 6.35 K/ul (4.8-10.8)
[2023-05-16 06:33] LABS: Albumin Globulin Ratio 1.3 (0.9-2); Albumin Level 3.7 gm/dl (3.4-5.0); BUN Creatinine Ratio 24.7 (10-20); Bilirubin,Total 0.4 mg/dl (0.2-1.0); Calcium 9.2 mg/dl (8.6-10.3); Creatinine Clr Calc Pharmacy 55.6 ml/min; Est GFR (Non-African American) 61.3 ml/min; Globulin 2.8 gm/dl (2.5-4.0); Magnesium 1.9 mg/dl (1.7-2.4); Phosphorus 3.9 mg/dl (2.5-4.9); Potassium 3.8 mmol/L (3.5-5.1); Total Protein 6.5 gm/dl (6.0-8.3)
--- NOTE | 2023-05-16 10:12 | Discharge Summary ---
Discharge Summary Date of Service May 16, 2023 Notes For Next Care Provider Medication Changes From Visit Cefdinir 300mg BID x 8 days Vit D3 25mcg daily Admission HPI Per Admitting Provider Pt is a 67yoF with PMHx significant for history of kidney stones, DMII, HTN, HLD, DD, Vit D deficiency, Hx of primary hyperparathyroidism s/p parathyroidectomy in 2009, chronic constipation, Hx of TIA presenting with flank pain. States that she went to an urgent care 2 days ago concerned that she might have obstructing kidney stones again. Believed that a urine sample was evaluated and she was told she was fine. however, the pain persisted and she presented to the ED today. States that the pain started generalized over the entire abdominal area before transitioning to just the left lower abdomen and left flank area. Denies dysuria but does note urinary urgency. Denies urinary frequency. States that she is nauseated but has not vomitted. Denies fevers, chills or night sweats. Hx in the past of urosepsis, had stents placed for obstructive uropathy. Notes Hx of DMII and states that she is compliant with her medications. 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 In discussing code status, she notes that when it's her "time to go, let me go". States that she does not want intubation or ventilatory support but would like CPR and defibrillator treatments. Admission Exam Per Admitting Provider General: Alert, oriented. No acute distress Skin: No noted rashes or bruises, large SK on back Psych: Appropriate mood and affect Neuro: No gross deficits HEENT: NC/AT Chest: Nontender to palpation. CV: RRR, Normal s1, s2. No murmurs appreciated Resp: Breath sounds clear bilaterally, no increased effort of breathing. Abdomen: Soft, nontender, nondistended. Flank pain cannot be reproduced with palpation Extremities: No edema in lower extremities bilaterally. Principal Dx & Hospital Course #1 = Principal Diagnosis (1) Acute UTI (urinary tract infection): (2) Right flank pain: (3) Hypokalemia: Plan Pt is a 67yoF with PMHx significant for history of kidney stones, DMII, HTN, HLD, DD, Vit D deficiency, Hx of primary hyperparathyroidism s/p parathyroid ectomy in 2009, chronic constipation, Hx of TIA presenting with flank pain. Flank Pain Complicated UTI Pt presenting with flank pain of 2-3 days Hx of urosepsis with obstructive uropathy UA suggestive of infection in the ED, urine Cx growing snow sensitive E coli CT abd/pelvis with no noted obstructing kidney stones No signs of sepsis during this admission Treated with IV Rocephin for 2 days, discharged with 8 more days of po cefdinir 300mg BID Hypokalemia K of 3.3 on admission Repleted as needed Nonobstructive Nephrolithiasis Noted on CT abd/pelvis PCP/Urology follow up recommended Vit D deficiency Vit D level low Started on supplementation Discharged with D3 25mcg daily PCP followup DMII Glucose of 193 on admission On jardiance, amaryl and metformin at home Basal/bolus insulin while hospitalized Continue home meds on discharge HTN continue home HCTZ Constipation notes chronic Hx Started on docusate sodium 100mg BID scheduled with home miralax prn in the hospital PCP followup HLD continue home zetia and atorvastatin Hx of TIA continue home aspirin and statin Hx of primary hyperparathyroidism s/p parathyroidectomy in 2009, pathology noted "parathyroid adenoma" PCP followup for continued monitoring Discharge Exam General: Alert, oriented. No acute distress Skin: No noted rashes or bruises, large SK on back Psych: Appropriate mood and affect Neuro: No gross deficits HEENT: NC/AT Chest: Nontender to palpation. CV: RRR, Normal s1, s2. No murmurs appreciated Resp: Breath sounds clear bilaterally, no increased effort of breathing. Abdomen: Soft, nontender, nondistended. Flank pain cannot be reproduced with palpation Extremities: No edema in lower extremities bilaterally. Updated Medication List Medication Instructions Recorded Confirmed Type aspirin 81 mg tablet,delayed 81 mg PO QAM 07/07/18 05/14/23 History release ezetimibe 10 mg tablet 10 mg PO QAM 07/07/18 05/14/23 History empagliflozin 25 mg tablet 25 mg PO QAM 08/25/19 05/14/23 History (Jardiance) atorvastatin 10 mg tablet 10 mg PO QAM 12/05/21 05/14/23 History glimepiride 4 mg tablet 4 mg PO QAM 12/05/21 05/14/23 History hydrochlorothiazide 25 mg tablet 25 mg PO QAM 12/05/21 05/14/23 History metformin 750 mg tablet,extended 1,500 mg PO DAILY 12/05/21 05/14/23 History release 24 hr polyethylene glycol 3350 17 gram 17 g PO DAILY PRN Constipation 12/05/21 05/14/23 History oral powder packet (Miralax) cefdinir 300 mg capsule 300 mg PO BID #16 caps 05/16/23 Rx cholecalciferol (vitamin D3) 25 25 mcg PO QAM #30 caps 05/16/23 Rx mcg (1,000 unit) capsule Hospital Stay Data Consultations 05/14/23 10:02 ED Decision to Admit Stat Diagnostic Imagining Performed 05/14/23 07:48 CT abd pelvis wo con Stat Abdomen/Pelvis CT 05/14/23 07:48 CT abd pelvis wo con CLINICAL HISTORY: R flank pain, hx kidney stone TECHNIQUE: Helical axial images of the abdomen and pelvis were obtained. Automated dose lowering techniques and/or adjustment according to patient size were utilized for this exam. This exam was performed without intravenous contrast. CT DOSE: 1052.05 mGy.cm COMPARISON: Comparison is made to CT abdomen pelvis 12/05/2021 FINDINGS: Lower chest: Minimal atelectasis in the right lung base. Liver: Unremarkable. No focal lesions are seen. Gallbladder and biliary tree: No calcified gallstones. Normal caliber wall. No intra- or extrahepatic biliary ductal dilation. Pancreas: Unremarkable, no focal lesions. Spleen: Splenule is incidentally noted. Adrenals: Unremarkable. Kidneys and ureters: Nonobstructive nephrolithiasis is seen. Bladder: Unremarkable. Reproductive organs: Unremarkable. Bowel: The appendix is normal. There is a small hiatal hernia. Lymph nodes Retroperitoneal: Unremarkable. Pelvic: Unremarkable. Mesenteric: Unremarkable. Peritoneum: Normal. Vessels: Atherosclerotic calcifications are seen. Abdominal wall: Unremarkable. Bones: Degenerative changes in the visualized spine. IMPRESSION: No acute abnormalities. Nonobstructive nephrolithiasis is seen. The appendix is normal and there is no evidence of obstructive stone or hydronephrosis. ACT 112: Negative or not required by law. Electronically signed by: Cb Hunter M.D. 05/14/2023 8:23 AM Discharge Instructions Given to Patient (Per Discharging Provider) Ms. Ayala, We admitted and treated you for a very bad urinary tract infection. We also noted that you had kidney stones that were not blocking anything. We treated you for 2 days with IV antibiotics and we are discharging you with 8 more days of oral antibiotics. Please take as prescribed. Your Vitamin D level was also low and so we are discharging you home with medication to help with that as well. Please keep close follow up with your primary care provider after discharge. Please do not hesitate to come back to the emergency room if your symptoms worsen or return. It was a pleasure taking care of you while you were here. Total Time Total Time Spent Total Time Spent (In Minutes): > 30 minutes
== END 2023-05-16 14:52 | disposition home or self-care (01) | DRG 690 ==
LOC: ED 07:34 → EDINP 10:20 → 3E 13:49